=== PATIENT | female | born 1950 | race African-American/Black ===

== ENCOUNTER 2017-02-15 17:26 | Inpatient (IN) ==
[2017-02-15 19:20] LABS: Basophils % 0.4 % (0.0-0.8); Eosinophils # 0.3 10*3/uL (0.0-0.87); Eosinophils % 6.1 % (0.00-10.9); Hematocrit 37.9 VOL% (35.7-47.0); Hemoglobin 12.2 GM/DL (12.0-16.0); Immature Granulocytes % 0.2 %; Immature Granulocytes Absolute 0.01 #; Lymphocytes # 1.4 10*3/uL (1.4-4.0); Mean Corpuscular HGB Conc 32.2 GM/DL (32-36); Mean Corpuscular Hemoglobin 30 PG (27-34); Mean Corpuscular Volume 91.5 FL (87-102); Mean Platelet Volume 10.3 FL (9.6-12.0); Monocytes # 1.1 10*3/uL (0.11-0.8); Neutrophils # 2.2 10*3/uL (1.4-7.4); Neutrophils % 43.3 % (38.7-73.9); Platelet Count 163 T/CUMM (130-400); Red Blood Count 4.14 MC/CUMM (3.8-5.5); Red Cell Distribution Width 19.2 % (9.3-17.3); White Blood Count 5.1 T/CUMM (4-12)
[2017-02-15 19:27] LABS: INR 1.1; PT Patient Result 11.3 SECS; Partial Thromboplastin Time 31.9 SECS (0-40)
[2017-02-15 19:30] LABS: Albumin 3.1 G/DL (3.4-5.0); Bilirubin,Total 0.4 MG/DL (0.2-1.0); Calcium 7.7 MG/DL (8.5-10.1); Osmolality,Calculated 291.4 MOS/KG (273-304); Potassium 4.5 MMOL/L (3.5-5.1); Total Protein 6.7 G/DL (6.4-8.3)
--- NOTE | 2017-02-15 19:39 | Emergency Department Note ---
Arrival - Arrival Chief Complaint: GI Bleed/Rectal Stated Complaint: BLEEDING FROM RECTUM/FEELS SICK ED Nursing Triage Note: C/o bright red rectal bleeding-onset yesterday. Also c/ o lower back cramping. Mode of Arrival: Wheelchair Limitations: No Limitations Source: Patient Time Seen by Provider: 02/15/17 17:56 - History of Present Illness HPI Narrative: The patient complains of bright red rectal bleeding since last night. She states she has had approximately 7 episodes of bloody diarrhea. She has had some mild diffuse abdominal cramping and lower back pain. No nausea or vomiting. She denies dizziness, lightheadedness, syncope, chest pain, shortness of breath or weakness. She has a history of rectal bleeding in the past. Etiology is unclear but diverticular disease is suspected. She has had to have transfusions in the past. She is a dialysis patient and dialyzes Thursday and Fridays. Date of Last Menstrual Period: menopause Allergies/Adverse Reactions: Allergies Allergy/AdvReac Type Severity Reaction Status Date / Time peanut Allergy Severe HIVES Verified 01/30/17 13:09 PEANUT BUTTER Allergy Severe ANAPHYLAXIS Uncoded 01/28/17 19:42 Home Medications: Home Medications Medication Instructions Recorded Confirmed Type Carvedilol [Coreg] 6.25 mg PO BID 06/06/15 02/15/17 History Doxazosin [Cardura] 2 mg PO BID 06/06/15 02/15/17 History Insulin Glargine [Lantus] 10 unit SUBCUT BEDTIME 06/06/15 02/15/17 History glipiZIDE [Glucotrol] 10 mg PO BIDAC 06/06/15 02/15/17 History Losartan Potassium 100 mg PO DAILY 11/04/16 02/15/17 History cloNIDine TAB [Catapres Tab] 0.1 mg PO TID 11/04/16 02/15/17 History Metoclopramide HCl 5 mg PO QID PRN 11/30/16 02/15/17 History Pantoprazole Tab [Protonix Tab] 40 mg PO BID 12/30/16 02/15/17 History Calcium Acetate [Phoslo] 1,334 mg PO WITH SNACKS 01/28/17 02/15/17 History Calcium Acetate [Phoslo] 2,001 mg PO TID W/MEALS 01/28/17 02/15/17 History Cinacalcet HCl [Sensipar] 60 mg PO BID 01/28/17 02/15/17 History Levocetirizine Dihydrochloride 5 mg PO DAILY #20 tablet 01/28/17 02/15/17 Rx [Xyzal] Pro Renal D 1 tablet PO DAILY 01/28/17 02/15/17 History Review of System - Review of System Constitutional: Absent: diaphoresis, fever, weakness Respiratory: Absent: cough Cardiovascular: Absent: chest pain, palpitations, dyspnea on exertion Gastrointestinal: Present: abdominal pain, diarrhea, hematochezia. Absent: nausea, vomiting, melena Medical,Surgical,& Family Hx - Medical History Cardio: History of: CAD, Hypertension, [place] (2007/2008), Cardiovascular Problems Psychological: No history of: Behavior Problems Neurology: No history of: Seizures HEENT: History of: Ear Problem (GLASSES), Eye Problem, Dental Problems Endocrine: History of: Diabetes Mellitus (IDDM), Diabetes Mellitus (NIDDM) Respiratory: No history of: Respiratory Problems (FLU VAC- YES; PNEU VAC- YES.) Renal: History of: Dialysis (MWF), Renal Failure Genitourinary: History of: Kidney Stones Gastrointestinal: History of: Diverticulitis/ Diverticulosis, GERD, Gastrointestinal Bleed, Polyps, GI Problems (GI bleeding) Musculoskeletal: History of: Amputation (right BKA) Hematology: History of: Anemia Other: History of: Anesthesia Reactions (NAUSEA AND VOMITING) - Surgical History Cardiac Surgeries: Sugical HX of: Cardiac Surgery (CABG 2008) Thoracic Surgeries: Patient denies;: Organ Transplant, Lobectomy Neurologic Surgeries: Patient denies: Neurologic Surgery HEENT Surgeries: Surgical HX of: Eye Surgery (CATARACTS) Patient denies: Tonsilectomy & Adenoidectomy Abdominal Surgeries: Surgical HX of: Cholecystectomy, Colonoscopy, EGD Reproductive Surgeries: Surgical HX of;: Hysterectomy, Tubal Ligation Patient denies;: Gynecologic Surgery Orthopedic Surgeries: Surgical HX of;: Implanted Devices (fistula rt upper arm, old graft in left arm) - Family History Family History: Reports;: Family Diabetes (PARENTS), Family Heart Disease, Family Hypertension, Family Stroke (MOM) - Social History Smoking Status: Never smoker Frequency of Alcohol Use: None Type of Drug Use: None Exam Physical Examination: GENERAL: Alert. No acute distress. HEENT: Normocephalic and atraumatic. There is no nasal drainage. No pharyngeal erythema or exudate. NECK: Normal inspection. Supple. No lymphadenopathy or meningismus. LUNGS: No respiratory distress. Clear to auscultation bilaterally, no wheezes, rales or rhonchi. HEART: Regular rate and rhythm. ABDOMEN: Soft, nontender and nondistended with normoactive bowel sounds. Rectal: Nontender. Few nonthrombosed, nontender external hemorrhoids with no active bleeding. Stool is dark red and heme positive. BACK: Normal inspection. SKIN: Color normal. Warm and dry. EXTREMITIES: Nontender. Right AKA. NEUROLOGICAL/PSYCHIATRIC: Alert and oriented -3 with normal mood and affect. Cranial nerves normal. No motor or sensory deficit. Vital Signs: Vital Signs Temperature 97.9 F 02/15/17 17:56 Pulse Rate 72 02/15/17 18:30 Respiratory Rate 18 02/15/17 18:30 Blood Pressure 215/72 02/15/17 18:30 O2 Sat by Pulse Oximetry 100 02/15/17 18:30 Course - Reevaluation(s) Reevaluation #1: Patient has remained stable in the ER. She really looks pretty good and her H& H are normal, however, she is grossly positive on exam and will need admission for monitoring of her H&H and probably GI consultation. I have discussed the patient with the hospitalist service who will see her in the ER and admit. Time: 19:48 Results - Labs CBC & BMP: 02/15/17 18:32 02/15/17 18:32 Lab Results: I have reviewed the patients labs Labs: Laboratory Tests 02/15/17 02/15/17 18:32 18:32 INR 1.1 PT Patient/Control Mix 11.3 Circ Anticoag PTT 31.9 Calcium 7.7 L Total Bilirubin 0.40 AST 20 ALT 12 L Alkaline Phosphatase 161 H Albumin 3.1 L Disposition Clinical Impression: Hematochezia, Hypertension, Chronic renal failure Case discussed with: patient Disposition: Still a Patient Time of Disposition: 19:50
--- NOTE | 2017-02-15 20:11 | Hospitalist History & Physical ---
Assessment and Plan - Time spent with patient Time spent with patient: Greater than 30 minutes (1) GI bleeding Status: Acute Assessment and plan: Patient has a history of recurrent GI bleeding with multiple negative endoscopies in the past except for diverticulosis which is the suspected source. She is currently hemodynamically stable and otherwise asymptomatic. Have ordered stat bleeding scan this evening we will continue her routine medications, obtain serial hematocrits, begin IV proton pump inhibitor. Will consult GI for further recommendations. Current Visit: Yes (2) Diabetes mellitus Status: Chronic Assessment and plan: Patient has diabetes mellitus. Will continue her home medications as well as Accu-Cheks and sliding scale insulin. Current Visit: Yes Qualifiers: Diabetes mellitus type: type 2 Chronic kidney disease stage: on chronic dialysis (3) ESRD on dialysis Status: Chronic Assessment and plan: I have consulted nephrology to assist with dialysis while here. Current Visit: No (4) Hypertension Status: Chronic Assessment and plan: Patient has chronic essential hypertension. She is mildly hypertensive this evening. We will continue her routine home medications with as needed hydralazine. Current Visit: No Qualifiers: Hypertension type: essential hypertension Qualified Code(s): I10 - Essential (primary) hypertension (5) Coronary artery disease Status: Chronic Assessment and plan: Patient has history of coronary artery disease but has no signs or symptoms of ACS at this time. Will continue current medical regimen and follow. Current Visit: No History of Present Illness Chief complaint: Rectal bleeding History of present illness: Ms. Carrillo is a 66 year old female with a history of end-stage renal disease on hemodialysis, hypertension, diabetes mellitus, coronary artery disease status post aortocoronary bypass grafting who has had recurrent GI bleeding in the past with multiple endoscopic evaluations with no definitive source except for diverticulosis. She was treated conservatively on her previous admission and it was recommended that she have a bleeding scan upon recurrence. She states that she began having some bright red rectal bleeding last evening and has had 3-4 episodes of bloody stool today the last being approximately 1 hour prior to admission. She says some diffuse abdominal cramping but no nausea or vomiting. She denies any chest pain, shortness of breath, dizziness, syncope, focal motor weakness or paresthesias, fever, chills. She states that she sees Dr. Austin García for her Thursday hemodialysis. Home Medications Medication Instructions Recorded Confirmed Type Carvedilol [Coreg] 6.25 mg PO BID 06/06/15 02/15/17 History Doxazosin [Cardura] 2 mg PO BID 06/06/15 02/15/17 History Insulin Glargine [Lantus] 10 unit SUBCUT BEDTIME 06/06/15 02/15/17 History glipiZIDE [Glucotrol] 10 mg PO BIDAC 06/06/15 02/15/17 History Losartan Potassium 100 mg PO DAILY 11/04/16 02/15/17 History cloNIDine TAB [Catapres Tab] 0.1 mg PO TID 11/04/16 02/15/17 History Metoclopramide HCl 5 mg PO QID PRN 11/30/16 02/15/17 History Pantoprazole Tab [Protonix Tab] 40 mg PO BID 12/30/16 02/15/17 History Calcium Acetate [Phoslo] 1,334 mg PO WITH SNACKS 01/28/17 02/15/17 History Calcium Acetate [Phoslo] 2,001 mg PO TID W/MEALS 01/28/17 02/15/17 History Cinacalcet HCl [Sensipar] 60 mg PO BID 01/28/17 02/15/17 History Levocetirizine Dihydrochloride 5 mg PO DAILY #20 tablet 01/28/17 02/15/17 Rx [Xyzal] Pro Renal D 1 tablet PO DAILY 01/28/17 02/15/17 History Allergies Allergy/AdvReac Type Severity Reaction Status Date / Time peanut Allergy Severe HIVES Verified 01/30/17 13:09 PEANUT BUTTER Allergy Severe ANAPHYLAXIS Uncoded 01/28/17 19:42 Medical,Surgical,& Family Hx - Medical History Cardio: History of: CAD, Hypertension, [place] (2007/2008), Cardiovascular Problems Psychological: No history of: Behavior Problems Neurology: No history of: Seizures HEENT: History of: Ear Problem (GLASSES), Eye Problem, Dental Problems Endocrine: History of: Diabetes Mellitus (IDDM), Diabetes Mellitus (NIDDM) Respiratory: No history of: Respiratory Problems (FLU VAC- YES; PNEU VAC- YES.) Renal: History of: Dialysis (MWF), Renal Failure Genitourinary: History of: Kidney Stones Gastrointestinal: History of: Diverticulitis/ Diverticulosis, GERD, Gastrointestinal Bleed, Polyps, GI Problems (GI bleeding) Musculoskeletal: History of: Amputation (right BKA) Hematology: History of: Anemia Other: History of: Anesthesia Reactions (NAUSEA AND VOMITING) - Surgical History Cardiac Surgeries: Sugical HX of: Cardiac Surgery (CABG 2008) Thoracic Surgeries: Patient denies;: Organ Transplant, Lobectomy Neurologic Surgeries: Patient denies: Neurologic Surgery HEENT Surgeries: Surgical HX of: Eye Surgery (CATARACTS) Patient denies: Tonsilectomy & Adenoidectomy Abdominal Surgeries: Surgical HX of: Cholecystectomy, Colonoscopy, EGD Reproductive Surgeries: Surgical HX of;: Hysterectomy, Tubal Ligation Patient denies;: Gynecologic Surgery Orthopedic Surgeries: Surgical HX of;: Implanted Devices (fistula rt upper arm, old graft in left arm) - Family History Family History: Reports;: Family Diabetes (PARENTS), Family Heart Disease, Family Hypertension, Family Stroke (MOM) - Social History Smoking Status: Never smoker Frequency of Alcohol Use: None Type of Drug Use: None 12 point system: reviewed and no additional remarkable complaints except as stated Exam - Constitutional Vitals: Period Temp Pulse Resp BP Sys/Durant Pulse Ox Last 24 Hr 97.9 F-97.9 F 72-78 18-18 205-215/62-72 99-100 General appearance: no acute distress - Head Head exam: Present: normocephalic, atraumatic - Eye Eye exam: Present: EOMI. Absent: scleral icterus Pupils: Present: LOUIS - ENT ENT exam: Present: normal oropharynx - Neck Neck exam: Present: normal inspection. Absent: lymphadenopathy, meningismus, tenderness, thyromegaly - Respiratory Respiratory exam: Present: clear to auscultation bilaterally. Absent: rales, rhonchi, wheezes - Cardiovascular Cardiovascular exam: Present: regular rate and rhythm. Absent: systolic murmur , tachycardia - GI/Abdominal GI/Abdominal exam: Present: normal bowel sounds, soft. Absent: distended, mass , tenderness, rebound - Extremities Exam Extremities exam: Present: other (Right below the knee amputation). Absent: calf tenderness, edema - Back Exam Back exam: Present: normal inspection. Absent: CVA tenderness (L), CVA tenderness (R) - Neurological Exam Neurological exam: Present: alert, oriented X3, CN II-XII intact. Absent: motor sensory deficit - Psychiatric Psychiatric exam: Present: normal affect, normal mood. Absent: agitated, anxious - Skin Skin exam: Present: warm, dry. Absent: erythema, rash Results - Labs CBC & BMP: 02/15/17 18:32 02/15/17 18:32 Lab Results: I have reviewed the past 24 hour labs
[2017-02-15 20:43] LABS: Eosinophils 3 % (0-10); Hypochromasia Slight; Lymphocytes 25 % (20-55); Platelet Estimate Normal; Segmented Neutrophils 58 % (50-85); Total Cells Counted 100
[2017-02-15] MEDS ORDERED: METOCLOPRAMIDE 5 MG TABLET PO PRN (22:41)
[2017-02-15] MEDS ORDERED: CALCIUM ACETATE 667 MG CAPSULE PO SCH (22:41)
[2017-02-15] MEDS ORDERED: DEXTROSE 50% 25 GM/50 ML VIAL IV PRN (22:41)
[2017-02-15] MEDS ORDERED: hydrALAZINE 20 MG/1 ML VIAL IV PRN (22:41)
[2017-02-15] MEDS ORDERED: SODIUM CHLORIDE 0.9% 1,000 ML IV SCH (22:41)
[2017-02-15] MEDS ORDERED: ONDANSETRON 4 MG/2 ML VIAL IV PRN (22:41)
[2017-02-15] MEDS ORDERED: GLUCAGON 1 MG VIAL IM PRN (22:41)
[2017-02-15 22:57] LABS: Hematocrit 37.8 VOL% (35.7-47.0); Hemoglobin 12.1 GM/DL (12.0-16.0)
[2017-02-16] MEDS: PANTOPRAZOLE 40 MG VIAL IV SCH ×3 (00:52→21:26)
[2017-02-16] MEDS: CINACALCET 30 MG TABLET PO SCH ×3 (00:52→21:25)
[2017-02-16] MEDS: CARVEDILOL 6.25 MG TABLET PO SCH ×3 (00:53→21:24)
[2017-02-16] MEDS: cloNIDine 0.1 MG TABLET PO SCH ×4 (00:53→21:24)
[2017-02-16] MEDS: DOXAZOSIN 4 MG TABLET PO SCH ×3 (00:53→21:23)
[2017-02-16] MEDS: INSULIN GLARGINE 100 UNIT/ML SUBCUT SCH ×2 (00:53→21:26)
[2017-02-16] MEDS: INSULIN LISPRO 100 UNIT/ML SUBCUT SCH ×5 (00:53→21:39)
[2017-02-16 06:32] LABS: Hematocrit 36.3 VOL% (35.7-47.0); Hemoglobin 11.3 GM/DL (12.0-16.0)
--- NOTE | 2017-02-16 09:44 | Gastrointestinal Consult Note ---
Assessment and Plan (1) Lower gastrointestinal hemorrhage Status: Acute Assessment and plan: This patient has had extensive multiple GI workups trying to find a source for this bleeding. She has left-sided diverticulosis and this is thought to be a diverticular bleed at this time but we have never clotted bleeding or been able to document the exact source. If she returns again to the ER it is advisable to obtain a tagged red blood cell scan immediately in order to assess the bleeding source most likely for lower GI hemorrhage. Given prior colonoscopies I suspect this is probably the left colon. She wishes to avoid hemicolectomy if possible but this represents a potential cure for this recurrent problem down the road. We will leave this to Dr. Hough. The first order of business is to document that this is indeed coming from the colon. I have ordered a repeat tagged red blood cell scan and delayed images. Current Visit: No (2) Anemia Problem details: Extensive negative workup. Hgb now stable. Bleeding scan and upper and lower endoscopy negative for source but confirming blood in entire colon. Not sure if bleeding brisk enough for arteriogram to detect. Status: Chronic Assessment and plan: Continue to observe and decide whether or not transfusions required later based on drop over time. I do not suspect further colonoscopy will be of much help if the tagged red blood cell scan is negative. Current Visit: No (3) GERD (gastroesophageal reflux disease) Status: Acute Assessment and plan: We can certainly suppress this patient's symptoms with Protonix on a daily basis. She does have a previous upper endoscopy by Dr. Carlin demonstrating some mild esophagitis, gastritis, and duodenitis. Capsule endoscopy however showed nothing done more recently in December 2016. Current Visit: Yes (4) Lower GI hemorrhage Status: Acute Current Visit: No (5) History of diverticulosis Status: Acute Assessment and plan: As mentioned above. Current Visit: Yes History of Present Illness Chief complaint: Bright red blood per rectum 7 episodes with decreased hematocrit History of present illness: Ms. Carrillo is a 66 year old female who is a patient of Dr. Hough' having bleeding since late in the afternoon 2 days ago when this started with multiple episodes of bright red blood per rectum, she states that there were at least 7 of these episodes yesterday. The patient was admitted to the hospital yesterday but has been admitted for this on numerous occasions in the past. She did not feel dizzy but she did feel weak. She is nauseous and does have reflux symptoms but did not have any vomiting of coffee grounds nor any melena. Her hematocrit is dropped from 37.9 down to 36.3. This is a patient of Dr. Hough's who is been worked up for this as mentioned with at least 2 upper endoscopies and 2 colonoscopies as well as capsule endoscopy. Capsule endoscopy was completed as recently as 12/25/16 and demonstrated rapid gastric emptying but a normal small bowel transit time and no clear evidence of AVM or other bleeding source in the small bowel. Looking through the old records the patient's last colonoscopy was done by Dr. Carlin on 10/10/14 and was significant for hemorrhoids as well as diverticulosis in the left colon. There was 80% visualization of the colon at that time. Upper endoscopy had previously been done by Dr. Carlin on 05/17/14 at that time she had some focal hemorrhagic duodenitis as well as esophagogastritis and a negative duodenum by report. Biopsies did not show any evidence of sprue just chronic duodenitis at that time. There may be a set of repeat upper and lower endoscopies done by Dr. Hough since the above tests, but they do not appear to be in [facility] [place]--Dr. Hough his last consultation makes reference that upper and lower endoscopy may have been done around January of 2016. The patient has had a tagged red blood cell scan back on 04/26/15 as well as a abdominal pelvic CTA on 05/28/15 in an effort to work this up as well. Both of these were negative for bleeding sources although the CTA did indicate a mucosal thickening within the ileum and mild fluid-filled loops of terminal ileum which were nonspecific. A small bowel follow-through was also ordered as recently as 02/01/16-this also did not show source for the patient's bleeding. She is due to get a tagged red blood cell scan today and will make sure that gets repeated. If recurrent GI bleeding is noted we might consider having the patient undergo left hemicolectomy given that this is the most likely source of potential bleeding. Home Medications Medication Instructions Recorded Confirmed Type Carvedilol [Coreg] 6.25 mg PO BID 06/06/15 02/15/17 History Doxazosin [Cardura] 2 mg PO BID 06/06/15 02/15/17 History Insulin Glargine [Lantus] 10 unit SUBCUT BEDTIME 06/06/15 02/15/17 History glipiZIDE [Glucotrol] 10 mg PO BIDAC 06/06/15 02/15/17 History Losartan Potassium 100 mg PO DAILY 11/04/16 02/15/17 History cloNIDine TAB [Catapres Tab] 0.1 mg PO TID 11/04/16 02/15/17 History Metoclopramide HCl 5 mg PO QID PRN 11/30/16 02/15/17 History Pantoprazole Tab [Protonix Tab] 40 mg PO BID 12/30/16 02/15/17 History Calcium Acetate [Phoslo] 1,334 mg PO WITH SNACKS 01/28/17 02/15/17 History Calcium Acetate [Phoslo] 2,001 mg PO TID W/MEALS 01/28/17 02/15/17 History Cinacalcet HCl [Sensipar] 60 mg PO BID 01/28/17 02/15/17 History Pro Renal D 1 tablet PO DAILY 01/28/17 02/15/17 History Allergies Allergy/AdvReac Type Severity Reaction Status Date / Time peanut Allergy Severe HIVES Verified 01/30/17 13:09 PEANUT BUTTER Allergy Severe ANAPHYLAXIS Uncoded 01/28/17 19:42 Medical,Surgical,& Family Hx - Medical History Cardio: History of: CAD, Hypertension, [place] (2007/2008), Cardiovascular Problems Psychological: No history of: Behavior Problems Neurology: No history of: Seizures HEENT: History of: Ear Problem (GLASSES), Eye Problem, Dental Problems Endocrine: History of: Diabetes Mellitus (IDDM), Diabetes Mellitus (NIDDM) Respiratory: No history of: Respiratory Problems (FLU VAC- YES; PNEU VAC- YES.) Renal: History of: Dialysis (MWF), Renal Failure Genitourinary: History of: Kidney Stones Gastrointestinal: History of: Diverticulitis/ Diverticulosis, GERD, Gastrointestinal Bleed, Polyps, GI Problems (GI bleeding) Musculoskeletal: History of: Amputation (right BKA) Hematology: History of: Anemia Other: History of: Anesthesia Reactions (NAUSEA AND VOMITING) - Surgical History Cardiac Surgeries: Sugical HX of: Cardiac Surgery (CABG 2008) Thoracic Surgeries: Patient denies;: Organ Transplant, Lobectomy Neurologic Surgeries: Patient denies: Neurologic Surgery HEENT Surgeries: Surgical HX of: Eye Surgery (CATARACTS) Patient denies: Tonsilectomy & Adenoidectomy Abdominal Surgeries: Surgical HX of: Cholecystectomy, Colonoscopy, EGD Reproductive Surgeries: Surgical HX of;: Hysterectomy, Tubal Ligation Patient denies;: Gynecologic Surgery Orthopedic Surgeries: Surgical HX of;: Implanted Devices (fistula rt upper arm, old graft in left arm) - Family History Family History: Reports;: Family Diabetes (PARENTS), Family Heart Disease, Family Hypertension, Family Stroke (MOM) - Social History Smoking Status: Never smoker Frequency of Alcohol Use: None Type of Drug Use: None Review of systems: Constitutional: Denies fever, chills, positive for nausea, without vomiting Eyes: Denies dry eyes, and scleral icterus HENT: Occasional headaches Cardiovascular: Denies acute chest pain and claudication Respiratory: Denies shortness of breath, wheezing, and difficulty breathing, denies cough Gastrointestinal: As noted in the HPI Genitourinary: Denies dysuria and hematuria Neurologic: Denies vision loss, and loss of sensation--she does have some distal paresthesias but denies phantom limb pain on the right Musculoskeletal: Admits to joint swelling, joint stiffness, and muscular weakness--the patient has had an right-sided AKA in the past Psychiatric: Denies depression and adam symptoms Heme-Lymph: Denies easy bruising, lymph node enlargement or tenderness, night sweats, but admits to excessive bleeding from the rectum Allergies-immunologic: Denies pruritus and rhinorrhea Exam - Constitutional Vitals: Period Temp Pulse Resp BP Sys/Durant Pulse Ox Last 24 Hr 97.3 F-98.2 F 63-78 18-20 138-215/52-73 95-100 Exam: Constitutional: Well-developed, well-nourished, alert, and in no acute distress Head and face: Head: Normocephalic atraumatic Eyes: Conjunctiva without injection, no gross scleral icterus, pupils equal and round bilaterally Ears: Intact to conversation in both ears Nose: External appearance is normal, nares patent Mouth: Oral mucous membranes moist without erythema Neck: Normal appearance, no masses or tenderness, trachea midline Thyroid: Gland midline and appropriate size for age Respiratory: Normal respiratory effort, clear to auscultation without wheezes, rhonchi or rales Cardiovascular: Regular rate and rhythm, normal S1, S2, the exam is without rubs, murmurs or gallops. Gastrointestinal: Mild periumbilical to palpation, normal active bowel sounds, tone normal without rigidity or guarding, no masses present, no hepatomegaly, no spleen tip felt. No rectal exam obtained--guaiac positive in the ER by report. Lymphatic: Neck without adenopathy, axilla without lymphadenopathy present Musculoskeletal: Right-sided AKA with well-healed stump but left lower extremities without evidence of edema, though the tissue here in the ankle and foot seems somewhat woody. Skin and subcutaneous tissue: No rashes or ulcerations noted, normal skin turgor, digits and nails without clubbing/cyanosis/deformities. Neurologic: The patient is grossly oriented to person place and time, cranial nerves show tongue movements are normal with normal tongue extrusion midline, light touch sensation is intact. Psychiatric: No hallucinations or delusions are present, does not appear depressed Results - Labs CBC & BMP: 02/16/17 06:20 02/15/17 18:32 Quality Measures - VTE Contraindication to Pharmacological VTE Prophylaxis: Active Bleeding
--- NOTE | 2017-02-16 10:11 | Nephrology Consult Note ---
History of Present Illness Chief complaint: esrd History of present illness: Ms. Carrillo is a 66 year old female with end-stage renal disease who dialyzes Thursday and. She presents with recurrent GI bleeding having had 7 bloody bowel movements yesterday. She has had multiple extensive workups for this problem with no solitary lesion being found. She has been hemodynamically stable and on admission had a hematocrit of 37%. On physical exam she is in no distress and neck without jugular venous distention heart without rub or gallop the abdomen is soft. Extremities she has had a right below-knee amputation and her left leg is without edema. Impression end-stage renal disease with presentation with recurrent GI bleeding. Plan is hemodynamic support and continued hemodialysis per Home Medications Medication Instructions Recorded Confirmed Type Carvedilol [Coreg] 6.25 mg PO BID 06/06/15 02/15/17 History Doxazosin [Cardura] 2 mg PO BID 06/06/15 02/15/17 History Insulin Glargine [Lantus] 10 unit SUBCUT BEDTIME 06/06/15 02/15/17 History glipiZIDE [Glucotrol] 10 mg PO BIDAC 06/06/15 02/15/17 History Losartan Potassium 100 mg PO DAILY 11/04/16 02/15/17 History cloNIDine TAB [Catapres Tab] 0.1 mg PO TID 11/04/16 02/15/17 History Metoclopramide HCl 5 mg PO QID PRN 11/30/16 02/15/17 History Pantoprazole Tab [Protonix Tab] 40 mg PO BID 12/30/16 02/15/17 History Calcium Acetate [Phoslo] 1,334 mg PO WITH SNACKS 01/28/17 02/15/17 History Calcium Acetate [Phoslo] 2,001 mg PO TID W/MEALS 01/28/17 02/15/17 History Cinacalcet HCl [Sensipar] 60 mg PO BID 01/28/17 02/15/17 History Pro Renal D 1 tablet PO DAILY 01/28/17 02/15/17 History Allergies Allergy/AdvReac Type Severity Reaction Status Date / Time peanut Allergy Severe HIVES Verified 01/30/17 13:09 PEANUT BUTTER Allergy Severe ANAPHYLAXIS Uncoded 01/28/17 19:42 Medical,Surgical,& Family Hx - Medical History Cardio: History of: CAD, Hypertension, OR (2007/2008), Cardiovascular Problems Psychological: No history of: Behavior Problems Neurology: No history of: Seizures HEENT: History of: Ear Problem (GLASSES), Eye Problem, Dental Problems Endocrine: History of: Diabetes Mellitus (IDDM), Diabetes Mellitus (NIDDM) Respiratory: No history of: Respiratory Problems (FLU VAC- YES; PNEU VAC- YES.) Renal: History of: Dialysis (MWF), Renal Failure Genitourinary: History of: Kidney Stones Gastrointestinal: History of: Diverticulitis/ Diverticulosis, GERD, Gastrointestinal Bleed, Polyps, GI Problems (GI bleeding) Musculoskeletal: History of: Amputation (right BKA) Hematology: History of: Anemia Other: History of: Anesthesia Reactions (NAUSEA AND VOMITING) - Surgical History Cardiac Surgeries: Sugical HX of: Cardiac Surgery (CABG 2008) Thoracic Surgeries: Patient denies;: Organ Transplant, Lobectomy Neurologic Surgeries: Patient denies: Neurologic Surgery HEENT Surgeries: Surgical HX of: Eye Surgery (CATARACTS) Patient denies: Tonsilectomy & Adenoidectomy Abdominal Surgeries: Surgical HX of: Cholecystectomy, Colonoscopy, EGD Reproductive Surgeries: Surgical HX of;: Hysterectomy, Tubal Ligation Patient denies;: Gynecologic Surgery Orthopedic Surgeries: Surgical HX of;: Implanted Devices (fistula rt upper arm, old graft in left arm) - Family History Family History: Reports;: Family Diabetes (PARENTS), Family Heart Disease, Family Hypertension, Family Stroke (MOM) - Social History Smoking Status: Never smoker Frequency of Alcohol Use: None Type of Drug Use: None Review of Systems 12 point system: reviewed and no additional remarkable complaints except as stated Exam - Vital Signs Vital signs: Period Temp Pulse Resp BP Sys/Durant Pulse Ox Last 24 Hr 97.3 F-98.2 F 63-78 18-20 138-215/52-73 95-100 - General Appearance General appearance: well-developed, well-nourished, appears started age EENT: ATNC Neck: no JVD, no thyromegaly, no carotid bruit, supple Respiratory: no kyphosis, no scoliosis Cardiology: no murmurs, no rub, no gallops, no edema, regular rate, regular rhythm, normal S1, normal S2 Gastrointestinal: normoactive bowel sounds Integumentary: no rash, warm and dry Neurologic: no focal deficit, no asterixis, alert and oriented x3, reflexes 2+ and symmetric, gait normal, strength 5/5 Musculoskeletal: no deformities, no erythema, no cyanosis, no clubbing Psychiatric: mood/affect appropriate, cooperative Results - Labs CBC & BMP: 02/16/17 06:20 02/15/17 18:32 Assessment and Plan (1) End stage renal disease Problem details: HD tomorrow. Status: Chronic Current Visit: No (2) GI bleeding Status: Acute Current Visit: Yes Specialty Discharge - Follow Up or Referrals - Speciality Discharge Instructions Nephrology Instructions: Hemodialysis Thursday.
--- NOTE | 2017-02-16 10:12 | Dialysis Note ---
Dialysis Note - Dialysis Note Ms. Carrillo is seen during her hemodialysis. Blood pressure stable. She is alert and in no distress. Plan is to continue Thursday dialysis
[2017-02-16] MEDS: glipiZIDE 10 MG TABLET PO SCH ×2 (10:25→16:30)
[2017-02-16] MEDS: CALCIUM ACETATE 667 MG CAPSULE PO SCH ×3 (10:26→16:30)
[2017-02-16] MEDS: MULTIVITAMIN (BEROCCA) TABLET PO SCH (10:28)
[2017-02-16] MEDS ORDERED: HEPARIN 10,000 UNIT/10 ML VIAL IV SCH (10:30)
[2017-02-16 11:11] LABS: Hemoglobin 12.2 GM/DL (12.0-16.0)
[2017-02-16] MEDS: LOSARTAN 50 MG TABLET PO SCH (12:28)
[2017-02-16] MEDS: CETIRIZINE 10 MG TABLET PO SCH (12:30)
--- NOTE | 2017-02-16 13:12 | Hospitalist Progress Note ---
Assessment and Plan (1) Diabetes mellitus Status: Chronic Assessment and plan: Home medications SSI Current Visit: No Qualifiers: Diabetes mellitus type: type 2 Diabetes mellitus complication detail: with chronic kidney disease Chronic kidney disease stage: on chronic dialysis (2) Hypertension Status: Chronic Assessment and plan: Home medications Current Visit: No Qualifiers: Hypertension type: essential hypertension Qualified Code(s): I10 - Essential (primary) hypertension (3) GI bleeding Status: Acute Assessment and plan: History of GI bleeds, diverticulosis H/H stable GI consulted Tagged red blood cell scan ordered Current Visit: Yes (4) Anemia Problem details: Extensive negative workup. Hgb now stable. Bleeding scan and upper and lower endoscopy negative for source but confirming blood in entire colon. Not sure if bleeding brisk enough for arteriogram to detect. Status: Chronic Assessment and plan: Monitor closely Current Visit: No (5) End stage renal disease Problem details: HD tomorrow. Status: Chronic Assessment and plan: Nephrology managing Current Visit: No Hospitalist: Subjective Interval history: No acute events overnight. Seen today in HD. Complaining of some nausea and mild cramping. Exam - Constitutional Vitals: Period Temp Pulse Resp BP Sys/Durant Pulse Ox Last 24 Hr 97.0 F-98.2 F 59-78 16-20 91-215/41-73 93-100 General appearance: over weight - Head Head exam: Present: normocephalic, atraumatic - Eye Eye exam: Present: EOMI Pupils: Present: LOUIS - ENT ENT exam: Present: normal exam - Neck Neck exam: Present: normal inspection - Respiratory Respiratory exam: Present: clear to auscultation bilaterally. Absent: rhonchi, wheezes - Cardiovascular Cardiovascular exam: Present: regular rate and rhythm - GI/Abdominal GI/Abdominal exam: Present: normal bowel sounds, soft. Absent: tenderness, rebound - Extremities Exam Extremities exam: Present: normal inspection - Back Exam Back exam: Present: normal inspection - Neurological Exam Neurological exam: Present: alert, oriented X3 - Psychiatric Psychiatric exam: Present: normal affect, normal mood - Skin Skin exam: Present: warm, intact Results - Labs CBC & BMP: 02/16/17 10:40 02/15/17 18:32 Quality Measures - VTE Contraindication to Pharmacological VTE Prophylaxis: Active Bleeding
--- NOTE | 2017-02-16 14:59 | Nuclear Medicine Report ---
Exam: NM GI bleeding Date: 02/16/2017 7:55 PM Comparison: 04/26/2015 Indication: Rectal bleeding Technique:[Patient injected with 25 mCi technetium 99m labeled T1 LP RBC tag.] GI bleeding scans obtained. Findings: Scans were obtained until 2 hours post injection of isotope. Finding consistent with apparent AV graft in the right femoral location. It is difficult to exclude minimal isotopic activity in the level of the rectum. However somewhat similar findings were noted on the earlier exam. Impression: Equivocal minimal GI bleeding at the level of the rectum. Delayed scans will be obtained as requested. PROCEDURE INTERPRETED AT [facility] DEPARTMENT OF RADIOLOGY Final Report Signed by: Dr. Lizette Man
[2017-02-16 16:40] LABS: Hematocrit 35.9 VOL% (35.7-47.0); Hemoglobin 11.6 GM/DL (12.0-16.0)
[2017-02-17 05:09] LABS: Basophils % 0.3 % (0.0-0.8); Eosinophils # 0.2 10*3/uL (0.0-0.87); Eosinophils % 5.9 % (0.00-10.9); Hematocrit 37.2 VOL% (35.7-47.0); Hemoglobin 11.7 GM/DL (12.0-16.0); Immature Granulocytes % 0.3 %; Immature Granulocytes Absolute 0.01 #; Lymphocytes # 1.1 10*3/uL (1.4-4.0); Mean Corpuscular HGB Conc 31.5 GM/DL (32-36); Mean Corpuscular Hemoglobin 29 PG (27-34); Mean Corpuscular Volume 92.5 FL (87-102); Monocytes # 0.5 10*3/uL (0.11-0.8); Monocytes % 14.2 % (1.7-12.7); Neutrophils # 1.6 10*3/uL (1.4-7.4); Neutrophils % 47.3 % (38.7-73.9); Platelet Count 133 T/CUMM (130-400); Red Blood Count 4.02 MC/CUMM (3.8-5.5); Red Cell Distribution Width 18.6 % (9.3-17.3); White Blood Count 3.4 T/CUMM (4-12)
[2017-02-17 05:29] LABS: Calcium 7.6 MG/DL (8.5-10.1); Magnesium 2.1 MG/DL (1.8-2.4); Osmolality,Calculated 274.2 MOS/KG (273-304); Potassium 4.5 MMOL/L (3.5-5.1)
[2017-02-17 06:47] LABS: Eosinophils 2 % (0-10); Hypochromasia 1+; Lymphocytes 21 % (20-55); Nucleated Red Blood Cells 1 (0-5); Platelet Estimate Decreased; Segmented Neutrophils 60 % (50-85); Total Cells Counted 100
--- NOTE | 2017-02-17 06:52 | Nuclear Medicine Report ---
NM GI bleeding delayed Indication: Recurrent GI bleeding of uncertain etiology. Comparison: Nuclear medicine bleeding study performed 02/16/2017 1208 hours. Technique: A delayed 18 hour planar image was obtained in the anterior projection. Findings: There appears to be increased activity within the right abdomen and mid abdomen underlying residual activity within the liver that could reflect evidence of intraluminal hemorrhage involving cecum and right colon extending into the transverse large bowel. Impression: 1. Increased scintigraphic activity within the right abdomen could reflect evidence of hemorrhage within large bowel. CT of the abdomen and pelvis without oral contrast, utilizing GI bleed protocol may be useful for further evaluation. 02/17/2017 6:45 AM PROCEDURE INTERPRETED AT [facility] DEPARTMENT OF RADIOLOGY Final Report Signed by: Dr. Jaswant Aguayo
[2017-02-17] MEDS: PANTOPRAZOLE 40 MG VIAL IV SCH ×2 (08:46→21:19)
--- NOTE | 2017-02-17 09:13 | Gastrointestinal Progress Note ---
<Jacy Palumbo - Last Filed: 02/17/17 09:04> Assessment and Plan (1) GI bleeding Status: Acute Assessment and plan: 02/17-No overt bleeding today. Positive bleeding scan this morning. Hgb 11.7. For stat CT of abdomen/pelvis with GI bleed protocol. Plan and addendum to follow by DR Hough Current Visit: Yes Gastroenterology - PN: Subj Interval history: CC: GI bleed Patient is seen awake and alert lying in bed. She was admitted over the weekend for a sudden onset of bright red rectal bleeding mixed with stool on Thursday. States she had upwards of 7 bloody bowel movements prior to admission. Patient states that she had a couple of episodes yesterday with her last one being last night. She denies any abdominal pain, nausea or vomiting. Hemoglobin is stable at this time at 11.7. She is required no blood transfusion since admission. Abdomen soft, nontender. She did have a nuclear med GI bleeding scan done this morning which showed hemorrhaging in the right abdomen/large bowel. I have ordered a stat CT bleeding scan this morning. Last endoscopy noted in January 2016 with findings of polyps (sessile serrated adeonoma) and diverticulosis as well as EGD with findings of duodentits negative for H. pylori with hyperplastic polyp. ROS: Denies SOB or chest pain Exam (Progress Note) - Constitutional Vitals: Period Temp Pulse Resp BP Sys/Durant Pulse Ox Last 24 Hr 97.0 F-97.9 F 55-63 16-20 91-150/41-63 93-100 General appearance: normal weight, no acute distress - Head Head exam: Present: normal inspection, normocephalic - Eye Eye exam: Present: other (lids and conjunctiva unremarkable). Absent: scleral icterus - ENT ENT exam: Present: normal exam, normal oropharynx - Neck Neck exam: Present: normal inspection - Respiratory Respiratory exam: Present: clear to auscultation bilaterally. Absent: rales, rhonchi, wheezes - Cardiovascular Cardiovascular exam: Present: regular rate and rhythm. Absent: diastolic murmur , JVD, systolic murmur - GI/Abdominal GI/Abdominal exam: Present: normal bowel sounds, soft. Absent: ascites, distended, mass, organomegaly, tenderness - Extremities Exam Extremities exam: Present: normal inspection, full ROM - Back Exam Back exam: Present: normal inspection - Neurological Exam Neurological exam: Present: alert, oriented X3 - Psychiatric Psychiatric exam: Present: normal affect, normal mood - Skin Skin exam: Present: normal color, warm, dry Results - Labs CBC & BMP: 02/17/17 04:46 02/17/17 04:46 Lab Results: I have reviewed the past 24 hour labs <Anish Hough - Last Filed: 02/17/17 13:00> Exam (Progress Note) - Constitutional Vitals: Period Temp Pulse Resp BP Sys/Durant Pulse Ox Last 24 Hr 96.6 F-97.9 F 55-63 19-20 114-177/53-77 95-100 Results - Labs CBC & BMP: 02/17/17 04:46 02/17/17 04:46
[2017-02-17] MEDS: INSULIN LISPRO 100 UNIT/ML SUBCUT SCH ×4 (09:53→21:19)
[2017-02-17] MEDS: glipiZIDE 10 MG TABLET PO SCH ×2 (09:53→16:18)
[2017-02-17] MEDS: CETIRIZINE 10 MG TABLET PO SCH (09:54)
[2017-02-17] MEDS: MULTIVITAMIN (BEROCCA) TABLET PO SCH ×2 (09:54→10:12)
[2017-02-17] MEDS: CALCIUM ACETATE 667 MG CAPSULE PO SCH ×3 (09:54→16:18)
[2017-02-17] MEDS: DOXAZOSIN 4 MG TABLET PO SCH ×2 (10:08→21:18)
[2017-02-17] MEDS: CINACALCET 30 MG TABLET PO SCH ×2 (10:08→21:18)
[2017-02-17] MEDS: LOSARTAN 50 MG TABLET PO SCH (10:10)
[2017-02-17] MEDS: cloNIDine 0.1 MG TABLET PO SCH ×3 (10:11→21:18)
[2017-02-17] MEDS: CARVEDILOL 6.25 MG TABLET PO SCH ×2 (10:11→21:18)
--- NOTE | 2017-02-17 10:21 | CT Report ---
CT angio abd/pel GI Bleed Indication: GI bleed. Comparison: No cross-sectional imaging is available for comparison. Comparison is made to nuclear medicine tagged red blood cell study performed February 17, 2017. Technique: CT of the abdomen and pelvis was performed prior to and following administration of intravenous contrast. No oral contrast was administered. Contrast enhanced series were acquired in the portal venous and delayed phase. Coronal and sagittal MPR's as well as 3-D volumetric reconstructions of the vasculature were performed. Findings: In the delayed phase, within the cecum, there is a small focus of intraluminal blush, image #[id number] of the axial delayed series. While this focus does appear somewhat curvilinear, this does extend into the lumen of the cecum. This focus is supplied by right ileocolic branch of the SMA. This is not present in the portal venous phase and this finding is worrisome for intraluminal source of hemorrhage. No further delayed imaging was performed to confirm dissolution. Lower chest: Nonspecific thickening of interlobular septal lines is present which may in part be chronic. Heart size appears minimally enlarged. Previous sternotomy is demonstrated. Liver: Nodular margin of the liver is present and cirrhotic features could be considered. No focal mass lesions are present. The portal vein is patent. Hepatic veins appear patent. Gallbladder: Gallbladder is surgically absent. Spleen: Spleen is normal in size and appearance. Pancreas: Pancreas demonstrates no significant abnormality. Adrenal glands: The adrenal glands demonstrate no significant abnormalities. Kidneys: The kidneys demonstrate no significant abnormalities. Aorta: Diffuse intimal calcification of the aorta, SMA, iliac arteries, and femoral arteries is demonstrated. CURT appears patent. Inferior vena cava: The inferior vena cava demonstrates no significant abnormality. Lymph nodes: No adenopathy is noted within the abdomen or pelvis. Stomach and bowel: Small hiatal hernia is present. The stomach is otherwise unremarkable. Small bowel large bowel with exception of above described suggested focus of intraluminal extravasation of contrast demonstrate no acute findings. A few scattered diverticuli are suggested within the right and left colon. Intrapelvic contents: The bladder is not well distended and demonstrates diffuse wall thickening which is somewhat asymmetric in appearance. Uterus and ovaries demonstrate no significant abnormalities. Skeletal structures: The imaged bony structures of the lumbar spine, lower chest, pelvis, proximal femurs demonstrate no acute findings. Soft tissues and muscular structure of the body wall: Previous bypass surgery in the right leg is demonstrated. Visualized portion of the bypass graft is filled with contrast. Impression: 1. Small focal area of intraluminal contrast within the cecum, apparently supplied by right iliac colic branch of the SMA, is considered compatible with intraluminal extravasation of contrast. Only a single delayed phase series was obtained and no diffusion of this focus is distinctly demonstrated. 2. There may be a few scattered diverticula within the left and right hemicolon. No inflammatory changes are present. 3. Moderately advanced atherosclerotic changes are present throughout the aorta, iliac vessels, SMA, and femoral arteries. Prior right femoral bypass graft is present. 4. Diffuse bladder wall thickening is present which is somewhat asymmetric in appearance and could reflect cystitis or lack of distention. Correlation with cystoscopy could be considered as neoplasm is not excluded. 5. Other findings as detailed. 02/17/2017 10:09 AM PROCEDURE INTERPRETED AT [facility] DEPARTMENT OF RADIOLOGY Final Report Signed by: Dr. Jaswant Aguayo
--- NOTE | 2017-02-17 11:51 | Hospitalist Progress Note ---
Assessment and Plan (1) Diabetes mellitus Status: Chronic Assessment and plan: Home medications SSI Current Visit: No Qualifiers: Diabetes mellitus type: type 2 Diabetes mellitus complication detail: with chronic kidney disease Chronic kidney disease stage: on chronic dialysis (2) Hypertension Status: Chronic Assessment and plan: Home medications Current Visit: No Qualifiers: Hypertension type: essential hypertension Qualified Code(s): I10 - Essential (primary) hypertension (3) GI bleeding Status: Acute Assessment and plan: History of GI bleeds, diverticulosis H/H stable GI managing Tagged red blood cell scan was positive CT performed Current Visit: Yes (4) Anemia Problem details: Extensive negative workup. Hgb now stable. Bleeding scan and upper and lower endoscopy negative for source but confirming blood in entire colon. Not sure if bleeding brisk enough for arteriogram to detect. Status: Chronic Assessment and plan: Monitor closely Stable Current Visit: No (5) End stage renal disease Problem details: HD tomorrow. Status: Chronic Assessment and plan: Nephrology managing Current Visit: No Hospitalist: Subjective Interval history: No acute events overnight. No bowel movement since yesterday, so no bleeding noted. Denies abdominal pain, N/V. Positive bleeding scan. Exam - Constitutional Vitals: Period Temp Pulse Resp BP Sys/Durant Pulse Ox Last 24 Hr 97.0 F-97.9 F 55-63 19-20 114-172/53-68 95-100 General appearance: over weight - Head Head exam: Present: normocephalic, atraumatic - Eye Eye exam: Present: EOMI Pupils: Present: LOUIS - ENT ENT exam: Present: normal exam - Neck Neck exam: Present: normal inspection - Respiratory Respiratory exam: Present: clear to auscultation bilaterally. Absent: wheezes - Cardiovascular Cardiovascular exam: Present: regular rate and rhythm - GI/Abdominal GI/Abdominal exam: Present: hyperactive bowel sounds, soft. Absent: tenderness - Extremities Exam Extremities exam: Present: normal inspection - Back Exam Back exam: Present: normal inspection - Neurological Exam Neurological exam: Present: alert, oriented X3 - Psychiatric Psychiatric exam: Present: normal affect, normal mood - Skin Skin exam: Present: warm, intact Results - Labs CBC & BMP: 02/17/17 04:46 02/17/17 04:46 Quality Measures - VTE Contraindication to Pharmacological VTE Prophylaxis: Active Bleeding
--- NOTE | 2017-02-17 13:27 | Nephrology Progress Note ---
Nephrology - PN: Subj Interval history: Ms. Carrillo is seen in follow-up of her end-stage renal disease. She is undergoing a workup for her occult GI bleed. Apparently she had some bleeding identified into the cecum with the CT scan today. Dialysis is planned for tomorrow. She is in no distress and her chest is clear Exam (PN)-Nephrology - Vital Signs Vital signs: Period Temp Pulse Resp BP Sys/Durant Pulse Ox Last 24 Hr 96.6 F-97.9 F 55-63 19-20 114-177/53-77 95-100 - Lab 02/17/17 04:46 02/17/17 04:46 Most recent lab results Calcium 7.6 MG/DL (8.5-10.1) L 02/17/17 04:46 Magnesium 2.1 MG/DL (1.8-2.4) 02/17/17 04:46 Assessment and Plan (1) End stage renal disease Problem details: HD tomorrow. Status: Chronic Current Visit: No (2) GI bleeding Status: Acute Current Visit: Yes
--- NOTE | 2017-02-17 16:42 | Inventional Radiology Consult ---
Assessment and Plan - Time spent with patient Time spent with patient: Greater than 30 minutes (1) GI bleeding Problem details: possible intermittent bleeding in the right colon per the NM and CTA studies, history of intermittent GI bleeding in the past but negative Endo except for diverticulosis Status: Acute Assessment and plan: Plan for visceral angio tomorrow with embolization of any active hemorrhage. As she is not currently bleeding (no blooding bowel movements today and stable HCT) the angio may be negative. However, with the suspicious finidings in the right colon/cecum, will plan to target that area for prophylactic embolization if needed. All risks and benefits discussed with the patient. All questions answered. NPO after midnight. Plan for tomorrow afternoon. Current Visit: Yes IR Consult - Data of Consult Patient: new to practice Consult date: 02/17/17 Requesting Physician: Anish Hough - Consult Narrative Reason for consult: GI bleeding History of present illness: Lorena is a 66 year old F With history of multiple admissions for recurrent GI bleeding. Recently reports several (greater than 3) episodes of bloody bowel movements within the last week. Today she has had no bloody bowel movements. Hemoglobin since admission is relatively stable at approximately 11. She has not required blood transfusions. On my interview, she is comfortable lying in bed with no distress and no abdominal pain. She has no chest pain or shortness of breath. Currently she is tolerating a limited diet. ASA level: III Brief review of systems: Neurologic: No history of stroke. Cardiovascular: Prior CABG. Genitourinary: End stage renal disease on dialysis. Hematologic: See HPI. Musculoskeletal: Prior right BKA. No extremity pain at this time. Psychiatric: No history of suicidal ideation. - Home Medications and Allergies Home Medications: Home Medications Medication Instructions Recorded Confirmed Type Carvedilol [Coreg] 6.25 mg PO BID 06/06/15 02/15/17 History Doxazosin [Cardura] 2 mg PO BID 06/06/15 02/15/17 History Insulin Glargine [Lantus] 10 unit SUBCUT BEDTIME 06/06/15 02/15/17 History glipiZIDE [Glucotrol] 10 mg PO BIDAC 06/06/15 02/15/17 History Losartan Potassium 100 mg PO DAILY 11/04/16 02/15/17 History cloNIDine TAB [Catapres Tab] 0.1 mg PO TID 11/04/16 02/15/17 History Metoclopramide HCl 5 mg PO QID PRN 11/30/16 02/15/17 History Pantoprazole Tab [Protonix Tab] 40 mg PO BID 12/30/16 02/15/17 History Calcium Acetate [Phoslo] 1,334 mg PO WITH SNACKS 01/28/17 02/15/17 History Calcium Acetate [Phoslo] 2,001 mg PO TID W/MEALS 01/28/17 02/15/17 History Cinacalcet HCl [Sensipar] 60 mg PO BID 01/28/17 02/15/17 History Pro Renal D 1 tablet PO DAILY 01/28/17 02/15/17 History Allergies/Adverse Reactions: Allergies Allergy/AdvReac Type Severity Reaction Status Date / Time peanut Allergy Severe HIVES Verified 01/30/17 13:09 PEANUT BUTTER Allergy Severe ANAPHYLAXIS Uncoded 01/28/17 19:42 12 point system: reviewed and no additional remarkable complaints except as stated (see HPI) Medical,Surgical,& Family Hx - Medical History Cardio: History of: CAD, Hypertension, [place] (2007/2008), Cardiovascular Problems Psychological: No history of: Behavior Problems Neurology: No history of: Seizures HEENT: History of: Ear Problem (GLASSES), Eye Problem, Dental Problems Endocrine: History of: Diabetes Mellitus (IDDM), Diabetes Mellitus (NIDDM) Respiratory: No history of: Respiratory Problems (FLU VAC- YES; PNEU VAC- YES.) Renal: History of: Dialysis (MWF), Renal Failure Genitourinary: History of: Kidney Stones Gastrointestinal: History of: Diverticulitis/ Diverticulosis, GERD, Gastrointestinal Bleed, Polyps, GI Problems (GI bleeding) Musculoskeletal: History of: Amputation (right BKA) Hematology: History of: Anemia Other: History of: Anesthesia Reactions (NAUSEA AND VOMITING) - Surgical History Cardiac Surgeries: Sugical HX of: Cardiac Surgery (CABG 2008) Thoracic Surgeries: Patient denies;: Organ Transplant, Lobectomy Neurologic Surgeries: Patient denies: Neurologic Surgery HEENT Surgeries: Surgical HX of: Eye Surgery (CATARACTS) Patient denies: Tonsilectomy & Adenoidectomy Abdominal Surgeries: Surgical HX of: Cholecystectomy, Colonoscopy, EGD Reproductive Surgeries: Surgical HX of;: Hysterectomy, Tubal Ligation Patient denies;: Gynecologic Surgery Orthopedic Surgeries: Surgical HX of;: Implanted Devices (fistula rt upper arm, old graft in left arm) - Family History Family History: Reports;: Family Diabetes (PARENTS), Family Heart Disease, Family Hypertension, Family Stroke (MOM) - Social History Smoking Status: Never smoker Frequency of Alcohol Use: None Type of Drug Use: None Exam - Labs CBC & BMP: 02/17/17 04:46 02/17/17 04:46 Lab Results: I have reviewed the past 24 hour labs Labs: INR 1.1 02/15/17 18:32 Image Studies: Nuclear medicine bleeding study and CT angiogram reviewed. - Constitutional Vitals: Period Temp Pulse Resp BP Sys/Durant Pulse Ox Last 24 Hr 96.6 F-97.9 F 55-61 19-20 114-177/53-77 95-100 General appearance: over weight - Eye Eye exam: Present: EOMI, scleral icterus - Respiratory Respiratory exam: Present: clear to auscultation bilaterally - Cardiovascular Cardiovascular exam: Present: regular rate and rhythm - GI/Abdominal GI/Abdominal exam: Present: normal bowel sounds. Absent: distended, firm, guarding, tenderness, rebound - Neurological Exam Neurological exam: Present: alert, oriented X3 - Psychiatric Psychiatric exam: Present: normal affect, normal mood - Skin Skin exam: Present: normal color, dry
[2017-02-17] MEDS: INSULIN GLARGINE 100 UNIT/ML SUBCUT SCH (21:19)
[2017-02-18 06:24] LABS: Basophils % 0.6 % (0.0-0.8); Eosinophils # 0.2 10*3/uL (0.0-0.87); Hematocrit 36.6 VOL% (35.7-47.0); Hemoglobin 11.8 GM/DL (12.0-16.0); Immature Granulocytes % 0.3 %; Immature Granulocytes Absolute 0.01 #; Lymphocytes # 1.2 10*3/uL (1.4-4.0); Lymphocytes % 34.7 % (21.3-54.2); Mean Corpuscular HGB Conc 32.2 GM/DL (32-36); Mean Corpuscular Hemoglobin 29 PG (27-34); Mean Corpuscular Volume 91.3 FL (87-102); Mean Platelet Volume 10.8 FL (9.6-12.0); Monocytes # 0.4 10*3/uL (0.11-0.8); Monocytes % 11.4 % (1.7-12.7); Neutrophils # 1.6 10*3/uL (1.4-7.4); Platelet Count 139 T/CUMM (130-400); Red Blood Count 4.01 MC/CUMM (3.8-5.5); Red Cell Distribution Width 18.2 % (9.3-17.3); White Blood Count 3.3 T/CUMM (4-12)
[2017-02-18 06:50] LABS: Eosinophils 4 % (0-10); Hypochromasia 1+; Lymphocytes 32 % (20-55); Platelet Estimate Normal; Segmented Neutrophils 51 % (50-85); Total Cells Counted 100
[2017-02-18 06:51] LABS: Ovalocytes Slight
[2017-02-18 06:52] LABS: Calcium 7.1 MG/DL (8.5-10.1); Magnesium 2.3 MG/DL (1.8-2.4); Osmolality,Calculated 271.8 MOS/KG (273-304); Potassium 5.2 MMOL/L (3.5-5.1)
[2017-02-18] MEDS: INSULIN LISPRO 100 UNIT/ML SUBCUT SCH ×4 (08:05→21:54)
[2017-02-18] MEDS: glipiZIDE 10 MG TABLET PO SCH ×2 (08:05→17:10)
[2017-02-18] MEDS: CALCIUM ACETATE 667 MG CAPSULE PO SCH ×3 (08:05→17:29)
[2017-02-18] MEDS: CINACALCET 30 MG TABLET PO SCH ×2 (08:21→21:55)
[2017-02-18] MEDS: CETIRIZINE 10 MG TABLET PO SCH (08:21)
[2017-02-18] MEDS: MULTIVITAMIN (BEROCCA) TABLET PO SCH (08:21)
[2017-02-18] MEDS: PANTOPRAZOLE 40 MG VIAL IV SCH ×2 (08:23→22:00)
[2017-02-18] MEDS: CARVEDILOL 6.25 MG TABLET PO SCH ×2 (08:24→21:55)
--- NOTE | 2017-02-18 11:53 | Gastrointestinal Progress Note ---
<Jacy Palumbo Sherrill - Last Filed: 02/18/17 11:51> Assessment and Plan (1) GI bleeding Problem details: possible intermittent bleeding in the right colon per the NM and CTA studies, history of intermittent GI bleeding in the past but negative Endo except for diverticulosis Status: Acute Assessment and plan: 02/18-No active bleeding today. Hgb 11.8. No abd pain. For possible embolization today. Plan and addendum to follow by Dr Hough. 02/17-No overt bleeding today. Positive bleeding scan this morning. Hgb 11.7. For stat CT of abdomen/pelvis with GI bleed protocol. Plan and addendum to follow by DR Hough Current Visit: Yes Gastroenterology - PN: Subj Interval history: CC:GI bleed Pt is seen awake and alert in dialysis. States she is feeling some better today. She has had no further active bleeding at present time. Hemoglobin is stable at 11.8. She is for attempted embolization today following dialysis. Abdomen is soft, nontender. She denies any pain. ROS: Denies SOB or chest pain Exam (Progress Note) - Constitutional Vitals: Period Temp Pulse Resp BP Sys/Durant Pulse Ox Last 24 Hr 96.2 F-97.3 F 53-62 17-20 125-177/56-77 96-100 General appearance: normal weight, no acute distress - Head Head exam: Present: normal inspection, normocephalic - Eye Eye exam: Present: other (lids and conjunctiva unremarkable). Absent: scleral icterus - ENT ENT exam: Present: normal exam, normal oropharynx - Neck Neck exam: Present: normal inspection - Respiratory Respiratory exam: Present: clear to auscultation bilaterally. Absent: rales, rhonchi, wheezes - Cardiovascular Cardiovascular exam: Present: regular rate and rhythm. Absent: diastolic murmur , JVD, systolic murmur - GI/Abdominal GI/Abdominal exam: Present: normal bowel sounds, soft. Absent: ascites, distended, mass, organomegaly, tenderness - Extremities Exam Extremities exam: Present: normal inspection, full ROM - Back Exam Back exam: Present: normal inspection - Neurological Exam Neurological exam: Present: alert, oriented X3 - Psychiatric Psychiatric exam: Present: normal affect, normal mood - Skin Skin exam: Present: normal color, warm, dry Results - Labs CBC & BMP: 02/18/17 05:39 02/18/17 05:39 Lab Results: I have reviewed the past 24 hour labs <Anish Hough - Last Filed: 02/18/17 22:31> Exam (Progress Note) - Constitutional Vitals: Period Temp Pulse Resp BP Sys/Durant Pulse Ox Last 24 Hr 96.4 F-98 F 53-69 16-20 126-254/56-86 94-100 Results - Labs CBC & BMP: 02/18/17 05:39 02/18/17 05:39
[2017-02-18] MEDS ORDERED: MIDAZOLAM 10 MG/2 ML VIAL IV ONE (12:00)
[2017-02-18] MEDS ORDERED: fentaNYL 100 MCG/2 ML VIAL IV ONE (12:00)
[2017-02-18] MEDS: cloNIDine 0.1 MG TABLET PO SCH ×4 (13:54→21:55)
[2017-02-18] MEDS: DOXAZOSIN 4 MG TABLET PO SCH ×2 (13:54→21:55)
[2017-02-18] MEDS: LOSARTAN 50 MG TABLET PO SCH (13:55)
--- NOTE | 2017-02-18 14:24 | Hospitalist Progress Note ---
Assessment and Plan (1) Diabetes mellitus Status: Chronic Assessment and plan: Home medications SSI Current Visit: No Qualifiers: Diabetes mellitus type: type 2 Diabetes mellitus complication detail: with chronic kidney disease Chronic kidney disease stage: on chronic dialysis (2) Hypertension Status: Chronic Assessment and plan: Home medications Current Visit: No Qualifiers: Hypertension type: essential hypertension Qualified Code(s): I10 - Essential (primary) hypertension (3) GI bleeding Problem details: possible intermittent bleeding in the right colon per the NM and CTA studies, history of intermittent GI bleeding in the past but negative Endo except for diverticulosis Status: Acute Assessment and plan: History of GI bleeds, diverticulosis H/H stable GI managing Tagged red blood cell scan was positive CTA with same Angio planned for today with IR Current Visit: Yes (4) Anemia Problem details: Extensive negative workup. Hgb now stable. Bleeding scan and upper and lower endoscopy negative for source but confirming blood in entire colon. Not sure if bleeding brisk enough for arteriogram to detect. Status: Chronic Assessment and plan: Monitor closely Stable Current Visit: No (5) End stage renal disease Problem details: HD tomorrow. Status: Chronic Assessment and plan: Nephrology managing Current Visit: No Hospitalist: Subjective Interval history: No acute events overnight. Seen today after HD. No complaints. Bowel movement last night with bright red blood. Possible embolization today Exam - Constitutional Vitals: Period Temp Pulse Resp BP Sys/Durant Pulse Ox Last 24 Hr 96.2 F-97.3 F 53-62 17-20 125-176/56-69 96-100 General appearance: over weight - Head Head exam: Present: normocephalic, atraumatic - Eye Eye exam: Present: EOMI Pupils: Present: LOUIS - ENT ENT exam: Present: normal exam - Neck Neck exam: Present: normal inspection - Respiratory Respiratory exam: Present: clear to auscultation bilaterally. Absent: rhonchi, wheezes - Cardiovascular Cardiovascular exam: Present: regular rate and rhythm - GI/Abdominal GI/Abdominal exam: Present: normal bowel sounds, soft. Absent: tenderness, rebound - Extremities Exam Extremities exam: Present: normal inspection - Back Exam Back exam: Present: normal inspection - Neurological Exam Neurological exam: Present: alert, oriented X3 - Psychiatric Psychiatric exam: Present: normal affect, normal mood - Skin Skin exam: Present: warm, intact Results - Labs CBC & BMP: 02/18/17 05:39 02/18/17 05:39 Quality Measures - VTE Contraindication to Pharmacological VTE Prophylaxis: Active Bleeding
[2017-02-18] MEDS ORDERED: HEPARIN/NACL 0.9% 2 UNITS/ML 3,000 ML IV ONE (15:15)
[2017-02-18] MEDS ORDERED: fentaNYL 100 MCG/2 ML VIAL ONE (15:34)
[2017-02-18] MEDS ORDERED: MIDAZOLAM 2 MG/2 ML VIAL ONE (15:35)
--- NOTE | 2017-02-18 15:43 | Nephrology Progress Note ---
Nephrology - PN: Subj Interval history: Ms. Carrillo is seen in follow-up of her end-stage renal disease. She dialyzed yesterday and did well. Her chest is clear. She is to go for arteriography with possible embolization of the bleeding area in her cecum. We will continue to follow and provide dialysis. Exam (PN)-Nephrology - Vital Signs Vital signs: Period Temp Pulse Resp BP Sys/Durant Pulse Ox Last 24 Hr 96.2 F-97.3 F 53-62 17-20 125-176/56-69 96-100 - Lab 02/18/17 05:39 02/18/17 05:39 Most recent lab results Calcium 7.1 MG/DL (8.5-10.1) L 02/18/17 05:39 Magnesium 2.3 MG/DL (1.8-2.4) 02/18/17 05:39 Assessment and Plan (1) End stage renal disease Problem details: HD tomorrow. Status: Chronic Current Visit: No (2) GI bleeding Problem details: possible intermittent bleeding in the right colon per the NM and CTA studies, history of intermittent GI bleeding in the past but negative Endo except for diverticulosis Status: Acute Current Visit: Yes
--- NOTE | 2017-02-18 17:28 | Post Interventional Procedure ---
Pre-op diagnosis: intermittent GI bleeding Post-op diagnosis: same Procedure: visceral angiogram Contrast: 122 mL Flouroscopy: 8.2 min Radiologist: Shankar Rodríguez Anesthesia: conscious sedation Medications: 1 mg intravenous Versed. 25 mcg intravenous fentanyl 40 minutes sedation time. Total Sedation Time: 40 mins Specimens: none sent Estimated blood loss: none Complications: none Condition: stable Description/Findings: Despite extensive effort including selective angiograms of the common hepatic, gastroduodenal, superior mesenteric and inferior mesenteric arteries, no definite active bleeding could be identified within the small or large bowel. Of note, the previously questioned dysplastic vessels seen on prior CTA near the cecum could not definitely be visualized, and may have been venous shunts. Of note, there are multiple very small branch vessels throughout the mesentery which supply the colon some of which extend from the gastroepiploic artery, which would be an uncommon variant. These vessels are too small to individually catheterized. Therefore, no prophylactic embolization therapy could be performed. The patient tolerated the procedure well and this procedure area in stable condition. Assessment and Plan - Time spent with patient Time spent with patient: Greater than 30 minutes (1) GI bleeding Problem details: possible intermittent bleeding in the right colon per the NM and CTA studies, history of intermittent GI bleeding in the past but negative Endo except for diverticulosis Status: Acute Assessment and plan: Plan for visceral angio tomorrow with embolization of any active hemorrhage. As she is not currently bleeding (no blooding bowel movements today and stable HCT) the angio may be negative. However, with the suspicious finidings in the right colon/cecum, will plan to target that area for prophylactic embolization if needed. All risks and benefits discussed with the patient. All questions answered. NPO after midnight. Plan for tomorrow afternoon. Current Visit: Yes
--- NOTE | 2017-02-18 17:46 | Interventional Radiology Rpt ---
IR angio mesenteric, US guide vascular access, IR angio celiac Clinical Information: Intermittent GI bleeding with no definite source on prior endoscopy. Recent nuclear medicine and CT angiography suggests a possible right colon or cecum abnormal vessel. Physician: Dr. Rodríguez Total number of images for this study: 375 Procedure: The patient was advised of the benefits, risks, and alternatives of the procedure and informed consent was obtained. A time out was performed with verification of the patient's name, MRN, site of procedure, and type of procedure to be performed. The patient was positioned in the supine position on the angiographic table. The site was prepped and draped in the usual sterile fashion. Moderate sedation was performed by the physician including the presence of an independent trained observer that assisted in monitoring the patient's level of consciousness and physiological status. Following the administration of 1 mg intravenous Versed and 25 mcg intravenous fentanyl the physician spent 40 minutes of continuous [id number] time with the patient. A automotive service manager radiograph reveals no relevant abnormality. 2% lidocaine was used for local anesthesia. The right common femoral artery was accessed with a microintroducer set using ultrasound guidance. Ultrasound guidance was utilized given that the patient has a right thigh dialysis loop graft. Permanent image capture of vascular access was retained for the patient's medical record. A short 0.018" wire was inserted and the needle was exchanged for a 4 Fr microintroducer sheath. The guidewire and dilator were removed and a 0.035" J-wire was advanced into the abdominal aorta. The right common femoral artery was accessed with an 18G single wall needle. A 0.035" J-wire was advanced into the abdominal aorta. A 6 Fr sheath was placed over the wire. A 5F C2 catheter was inserted through the sheath and placed into the upper abdominal aorta. The celiac artery was initially catheterized. Brief non-DSA angiogram demonstrates a common origin of the celiac and superior mesenteric vessels. Subsequently, the inferior mesenteric artery was catheterized. DSA angiogram demonstrates normal supply to the distal colon/rectum. There are no areas of active hemorrhage or angiodysplastic lesions visualized. Catheter was withdrawn. The celiac artery was again catheterized. The superior mesenteric artery was subselectively catheterized. DSA angiograms were performed 3 separate times with the catheter in the similar location. The findings demonstrate multiple vessels supplying the small bowel and transverse colon. There are no dominant ileocolic branches identified. There is a small branch vessel from the digital vessels which does traverse the right colon and extend toward the cecum. However, this vessel is markedly diminutive in size and could not be catheterized directly. Subsequently, again the celiac artery was catheterized. The common hepatic artery was subselectively catheterized. Arteriogram demonstrates normal appearance of the hepatic vasculature. The gastroduodenal and gastroepiploic artery are noted with no areas of active hemorrhage. Multiple small vessels arise from the distal gastroduodenal and gastroepiploic arteries which apparently supply portions of the transverse colon and distal left colon/sigmoid colon. These vessels again are submillimeter in size and no definite angiodysplastic lesions are visualized. These could not be catheterized directly due to their small size. The gastroduodenal artery was subsequently catheterized subselectively from the common hepatic artery. 2 separate DSA angiograms were performed with the catheter in this location. Again, this demonstrates gastroepiploic and GDA vessels without evidence of active extravasation. The small branch vessels which extend toward the colon to the mesentery are again noted with no definite evidence of active extravasation or focal injury/lesion. The diagnostic catheter was removed without difficulty. Right common iliac arteriogram was performed via the right common femoral artery sheath. This demonstrates the patient's known right dialysis loop graft. The arterial puncture is otherwise unremarkable for active closure device placement. A 6 [place] Angio-Seal device was utilized to close the puncture site without difficulty. A sterile dressing was applied. The patient tolerated the procedure well and was returned to the inpatient room in stable condition. EBL: <10 mL. Complications: None. Fluoroscopy time: 8.2 minutes Conclusion: Successful multiple selective visceral arteriograms as detailed above. No active hemorrhage was visualized. No obvious angiodysplastic lesions are visualized. Attempted targeted evaluation of the question lesions arising within the right colon/cecum could not be visualized and/or are too small for direct catheterization. No embolization was performed at this time. If recurrent hemorrhage occurs, consider repeat CTA or endoscopy as clinically indicated. PROCEDURE INTERPRETED AT [facility] DEPARTMENT OF RADIOLOGY Final Report Signed by: Shankar Rodríguez
[2017-02-18] MEDS: PANTOPRAZOLE 40 MG TABLET PO SCH (21:57)
[2017-02-18] MEDS: INSULIN GLARGINE 100 UNIT/ML SUBCUT SCH (23:00)
[2017-02-19 04:38] LABS: Basophils % 0.3 % (0.0-0.8); Eosinophils # 0.2 10*3/uL (0.0-0.87); Eosinophils % 5.1 % (0.00-10.9); Hematocrit 32.7 VOL% (35.7-47.0); Hemoglobin 10.5 GM/DL (12.0-16.0); Immature Granulocytes % 0.3 %; Immature Granulocytes Absolute 0.01 #; Lymphocytes # 0.7 10*3/uL (1.4-4.0); Lymphocytes % 20.8 % (21.3-54.2); Mean Corpuscular HGB Conc 32.1 GM/DL (32-36); Mean Corpuscular Hemoglobin 29 PG (27-34); Mean Corpuscular Volume 90.6 FL (87-102); Mean Platelet Volume 10.8 FL (9.6-12.0); Monocytes # 0.4 10*3/uL (0.11-0.8); Monocytes % 11.3 % (1.7-12.7); Neutrophils # 2.1 10*3/uL (1.4-7.4); Neutrophils % 62.2 % (38.7-73.9); Platelet Count 136 T/CUMM (130-400); Red Blood Count 3.61 MC/CUMM (3.8-5.5); White Blood Count 3.4 T/CUMM (4-12)
[2017-02-19 05:13] LABS: Calcium 7.1 MG/DL (8.5-10.1); Magnesium 2.2 MG/DL (1.8-2.4); Osmolality,Calculated 263.9 MOS/KG (273-304); Potassium 4.7 MMOL/L (3.5-5.1)
[2017-02-19 05:33] LABS: Eosinophils 5 % (0-10); Hypochromasia 1+; Lymphocytes 18 % (20-55); Ovalocytes Slight; Platelet Estimate Normal; Segmented Neutrophils 61 % (50-85); Total Cells Counted 100
[2017-02-19] MEDS: INSULIN LISPRO 100 UNIT/ML SUBCUT SCH ×4 (08:03→20:59)
[2017-02-19] MEDS: glipiZIDE 10 MG TABLET PO SCH ×2 (08:04→16:34)
[2017-02-19] MEDS: DOXAZOSIN 4 MG TABLET PO SCH ×2 (09:01→21:40)
[2017-02-19] MEDS: LOSARTAN 50 MG TABLET PO SCH (09:01)
[2017-02-19] MEDS: CALCIUM ACETATE 667 MG CAPSULE PO SCH ×3 (09:02→16:33)
[2017-02-19] MEDS: CARVEDILOL 6.25 MG TABLET PO SCH ×2 (09:02→21:40)
[2017-02-19] MEDS: MULTIVITAMIN (BEROCCA) TABLET PO SCH (09:02)
[2017-02-19] MEDS: PANTOPRAZOLE 40 MG TABLET PO SCH ×2 (09:02→21:40)
[2017-02-19] MEDS: CETIRIZINE 10 MG TABLET PO SCH (09:02)
[2017-02-19] MEDS: cloNIDine 0.1 MG TABLET PO SCH ×3 (09:02→21:40)
[2017-02-19] MEDS: CINACALCET 30 MG TABLET PO SCH ×2 (09:02→21:40)
--- NOTE | 2017-02-19 09:27 | Gastrointestinal Progress Note ---
<PaulinoqiJacy Sherrill - Last Filed: 02/19/17 09:24> Assessment and Plan (1) GI bleeding Problem details: possible intermittent bleeding in the right colon per the NM and CTA studies, history of intermittent GI bleeding in the past but negative Endo except for diverticulosis Status: Acute Assessment and plan: 02/19-Hgb holding at 10.5. Angiogram findings noted. One episode of dark red blood today. Plan and addendum to follow by Dr Hough. 02/18-No active bleeding today. Hgb 11.8. No abd pain. For possible embolization today. Plan and addendum to follow by Dr Hough. 02/17-No overt bleeding today. Positive bleeding scan this morning. Hgb 11.7. For stat CT of abdomen/pelvis with GI bleed protocol. Plan and addendum to follow by DR Hough Current Visit: Yes Gastroenterology - PN: Subj Interval history: CC: GI bleed Pt is seen awake and alert sitting up in bed. She states she had an uneventful night. States that she has had one episode of dark blood noted in her stool today. She underwent angiogram on yesterday with inability to embolize due to no definite bleeding visualized. Hemoglobin is holding at 10.5. Abdomen is soft , nontender. ROS: Denies SOB or chest pain Exam (Progress Note) - Constitutional Vitals: Period Temp Pulse Resp BP Sys/Durant Pulse Ox Last 24 Hr 96.8 F-98.4 F 56-69 16-20 133-254/60-86 94-100 General appearance: normal weight, no acute distress - Head Head exam: Present: normal inspection, normocephalic - Eye Eye exam: Present: other (lids and conjunctiva unremarkable). Absent: scleral icterus - ENT ENT exam: Present: normal exam, normal oropharynx - Neck Neck exam: Present: normal inspection - Respiratory Respiratory exam: Present: clear to auscultation bilaterally. Absent: rales, rhonchi, wheezes - Cardiovascular Cardiovascular exam: Present: regular rate and rhythm. Absent: diastolic murmur , JVD, systolic murmur - GI/Abdominal GI/Abdominal exam: Present: normal bowel sounds, soft. Absent: ascites, distended, mass, organomegaly, tenderness - Extremities Exam Extremities exam: Present: normal inspection, full ROM - Back Exam Back exam: Present: normal inspection - Neurological Exam Neurological exam: Present: alert, oriented X3 - Psychiatric Psychiatric exam: Present: normal affect, normal mood - Skin Skin exam: Present: normal color, warm, dry Results - Labs CBC & BMP: 02/19/17 03:41 02/19/17 03:41 Lab Results: I have reviewed the past 24 hour labs <Anish Hough - Last Filed: 02/19/17 10:39> Exam (Progress Note) - Constitutional Vitals: Period Temp Pulse Resp BP Sys/Durant Pulse Ox Last 24 Hr 96.8 F-98.4 F 54-69 16-20 133-254/58-86 94-100 Results - Labs CBC & BMP: 02/19/17 03:41 02/19/17 03:41
--- NOTE | 2017-02-19 11:59 | Nephrology Progress Note ---
Nephrology - PN: Subj Interval history: Ms. Carrillo is seen in follow-up of her end-stage renal disease. She is doing well and did dialyze yesterday. She had her angiography yesterday with no bleeding site found. No embolization was done. Overall she feels well and is in no distress. Her abdomen is soft. We anticipate dialysis tomorrow. Her hematocrit is fallen from 38 on admission to 32 now but she does not need transfusion at this point. Exam (PN)-Nephrology - Vital Signs Vital signs: Period Temp Pulse Resp BP Sys/Durant Pulse Ox Last 24 Hr 96.8 F-98.4 F 54-69 16-20 133-254/58-86 94-100 - Lab 02/19/17 03:41 02/19/17 03:41 Most recent lab results Calcium 7.1 MG/DL (8.5-10.1) L 02/19/17 03:41 Magnesium 2.2 MG/DL (1.8-2.4) 02/19/17 03:41 Assessment and Plan (1) End stage renal disease Problem details: HD tomorrow. Status: Chronic Current Visit: No (2) GI bleeding Problem details: possible intermittent bleeding in the right colon per the NM and CTA studies, history of intermittent GI bleeding in the past but negative Endo except for diverticulosis Status: Acute Current Visit: Yes
[2017-02-19] MEDS: INSULIN GLARGINE 100 UNIT/ML SUBCUT SCH (21:00)
[2017-02-20] MEDS: INSULIN LISPRO 100 UNIT/ML SUBCUT SCH ×2 (07:30→13:03)
--- NOTE | 2017-02-20 08:56 | Gastrointestinal Progress Note ---
<DeepaliJacy Sherrill - Last Filed: 02/20/17 08:54> Assessment and Plan (1) GI bleeding Problem details: possible intermittent bleeding in the right colon per the NM and CTA studies, history of intermittent GI bleeding in the past but negative Endo except for diverticulosis Status: Acute Assessment and plan: 02/20-no overt bleeding. Tolerating diet. Recheck H&H today. For possible discharge home today. Plan an addendum to follow by Dr. Hough. 02/19-Hgb holding at 10.5. Angiogram findings noted. One episode of dark red blood today. Plan and addendum to follow by Dr Hough. 02/18-No active bleeding today. Hgb 11.8. No abd pain. For possible embolization today. Plan and addendum to follow by Dr Hough. 02/17-No overt bleeding today. Positive bleeding scan this morning. Hgb 11.7. For stat CT of abdomen/pelvis with GI bleed protocol. Plan and addendum to follow by DR Hough Current Visit: Yes Gastroenterology - PN: Subj Interval history: CC: GI bleed Patient is seen awake and alert, prepared to go to dialysis this morning. She denies any abdominal pain, nausea or vomiting. States she is seeing no further bleeding at this time. Hemoglobin has remained stable however will recheck this today. Abdomen is soft, nontender. She is for possible discharge home later today. ROS: Denies shortness of breath or chest pain Exam (Progress Note) - Constitutional Vitals: Period Temp Pulse Resp BP Sys/Durant Pulse Ox Last 24 Hr 96.1 F-97.6 F 52-61 15-18 123-149/56-65 99-100 General appearance: normal weight, no acute distress - Head Head exam: Present: normal inspection, normocephalic - Eye Eye exam: Present: other (Lids and conjunctive are unremarkable). Absent: scleral icterus - ENT ENT exam: Present: normal exam, normal oropharynx - Neck Neck exam: Present: normal inspection - Respiratory Respiratory exam: Present: clear to auscultation bilaterally. Absent: rales, rhonchi, wheezes - Cardiovascular Cardiovascular exam: Present: regular rate and rhythm. Absent: diastolic murmur , JVD, systolic murmur - GI/Abdominal GI/Abdominal exam: Present: normal bowel sounds, soft. Absent: ascites, distended, mass, organomegaly, tenderness - Extremities Exam Extremities exam: Present: normal inspection, full ROM - Back Exam Back exam: Present: normal inspection - Neurological Exam Neurological exam: Present: alert, oriented X3 - Psychiatric Psychiatric exam: Present: normal affect, normal mood - Skin Skin exam: Present: normal color, warm, dry Results - Labs CBC & BMP: 02/19/17 03:41 02/19/17 03:41 Lab Results: I have reviewed the past 24 hour labs <Anish Hough - Last Filed: 02/20/17 12:58> Exam (Progress Note) - Constitutional Vitals: Period Temp Pulse Resp BP Sys/Durant Pulse Ox Last 24 Hr 96.1 F-97.5 F 52-61 15-20 122-151/56-62 97-100 Results - Labs CBC & BMP: 02/20/17 08:55 02/19/17 03:41
[2017-02-20 09:13] LABS: Hematocrit 32.3 VOL% (35.7-47.0); Hemoglobin 10.4 GM/DL (12.0-16.0)
--- NOTE | 2017-02-20 09:50 | Dialysis Note ---
Dialysis Note - Dialysis Note Ms. Carrillo is seen during hemodialysis. She is tolerating it well. She anticipates discharge later today. She will continue dialysis in the cab on Thursday.
--- NOTE | 2017-02-20 12:24 | Discharge Summary ---
<Emily Oh - Last Filed: 02/20/17 14:00> Hospital Course - Hospital Course Hospital Course: Ms. May is a 66-year-old -[place] female amputee patient with a history of diverticulitis, GERD, recurrent GI bleeding, polyps, end-stage renal disease on dialysis, hypertension, IL, coronary artery disease, CAB, diabetes that presented to the ED on 02/15 with complaints of bright red blood per rectum. The patient stated that she had about 7 episodes of bloody stools. She has had recurrent GI bleeding in the past with multiple evaluations but no definitive source. She was admitted to the hospitalist service for further evaluation and treatment. GI was consulted to evaluate patient. Patient was seen by Dr. Hough in the past and had an extensive workup performed. GI Bleed scan nuclear medicine was performed which showed possible hemorrhage within the large bowel. CT A/P was inconclusive. Interventional radiology perfomred visceral angio, which did not show any active bleeding. Patient's results were discussed with her and it was determined that a watchful waiting approach be taken versus a repeat colonoscopy. Nephrology was also consulted for inpatient HD. Today the patient is stable. H&H is 10.4 and 32.3. Vital signs were stable and patient was discharged to home. Discharge Plan - Discharge Data Disposition: Disch To Home/Self Care - Discharge Medications New Calcium Acetate [Phoslo] 1,334 mg PO WITH SNACKS capsule Carvedilol [Coreg] 6.25 mg PO BID tablet Cinacalcet [Sensipar] 60 mg PO BID tablet Losartan [Cozaar] 100 mg PO DAILY tablet cloNIDine TAB [Catapres Tab] 0.1 mg PO TID tablet glipiZIDE [Glucotrol] 10 mg PO BIDAC tablet Calcium Acetate [Phoslo] 2,001 mg PO TID W/MEALS capsule Doxazosin [Cardura] 2 mg PO BID tablet Continue Insulin Glargine [Lantus] 10 unit SUBCUT BEDTIME Metoclopramide HCl 5 mg PO QID PRN PRN Reason: Indigestion Pro Renal D 1 tablet PO DAILY Pantoprazole Tab [Protonix Tab] 40 mg PO BID Discontinued glipiZIDE [Glucotrol] 10 mg PO BIDAC Carvedilol [Coreg] 6.25 mg PO BID Doxazosin [Cardura] 2 mg PO BID Losartan Potassium 100 mg PO DAILY Calcium Acetate [Phoslo] 2,001 mg PO TID W/MEALS Cinacalcet HCl [Sensipar] 60 mg PO BID cloNIDine TAB [Catapres Tab] 0.1 mg PO TID Calcium Acetate [Phoslo] 1,334 mg PO WITH SNACKS - Follow Up or Referral - Forms/Instructions Exam - Constitutional Vitals: Period Temp Pulse Resp BP Sys/Durant Pulse Ox Last 24 Hr 96.1 F-97.5 F 52-61 15-20 122-151/56-62 97-100 Discharge Results Labs on day of discharge: Labs from last 24 hours 02/20/17 02/20/17 02/20/17 12:41 08:55 07:33 Hgb 10.4 L Hct 32.3 L POC Glucose 88 75 02/20/17 02/19/17 02/19/17 00:25 20:51 16:17 Hgb Hct POC Glucose 78 100 243 H DS: Provider Date of admission: 02/15/17 19:53 Primary care physician: Austin García Jr., MD Attending physician on admission: Roberto Simpson MD Consults: 02/15/17 22:41 Consult to Physician [CONS] Routine Comment: ESRD on HD MWF Consulting Provider: Chapo Harp Consulting Provider Notified: Yes When should Consulting Provider be notified: Now Consult to Specialist Group: Nephrology When should Consulting Provider be notified: Now Person Notified: Date Notified: 02/16/17 Time Notified: 08:13 Consult to Physician [CONS] Routine Comment: lgib Consulting Provider: Gianluca Smith Consulting Provider Notified: Yes When should Consulting Provider be notified: Now Consult to Specialist Group: Gastroenterology When should Consulting Provider be notified: Now Person Notified: NOTIFIED Date Notified: 02/16/17 Time Notified: 08:11 02/17/17 13:32 Consult to Physician [CONS] Routine Comment: CT angiogram Consulting Provider: Shankar Rodríguez Discharging clinician: Emily Oh NP <Armaan Pierre - Last Filed: 02/20/17 15:13> Hospital Course - Time spent with patient Time with patient DS: Less than 30 minutes Diagnosis - Discharge Diagnosis (1) Diabetes mellitus Status: Chronic (2) Hypertension Status: Chronic (3) GI bleeding Status: Resolved (4) Anemia Status: Chronic (5) End stage renal disease Status: Chronic Discharge Plan - Discharge Data Condition at Discharge: Stable Discharge Diet: high fiber diet Activity: increase activity as tolerated Hygiene: no restrictions Weight Bearing at Discharge: weight bear as tolerated Driving: no restrictions Contact your physician if you experience:: fever over 101, Shortness of breath, Bleeding Exam - Constitutional General appearance: over weight - Head Head exam: Present: normocephalic, atraumatic - Eye Eye exam: Present: EOMI Pupils: Present: LOUIS - ENT ENT exam: Present: normal exam - Neck Neck exam: Present: normal inspection - Respiratory Respiratory exam: Present: clear to auscultation bilaterally. Absent: rhonchi, wheezes - Cardiovascular Cardiovascular exam: Present: regular rate and rhythm - GI/Abdominal GI/Abdominal exam: Present: normal bowel sounds, soft - Extremities Exam Extremities exam: Present: normal inspection - Back Exam Back exam: Present: normal inspection - Neurological Exam Neurological exam: Present: alert, oriented X3 - Psychiatric Psychiatric exam: Present: normal affect, normal mood - Skin Skin exam: Present: warm, intact
[2017-02-20 12:30] VITALS: BP 151/61
[2017-02-20] MEDS: CINACALCET 30 MG TABLET PO SCH (12:55)
[2017-02-20] MEDS: PANTOPRAZOLE 40 MG TABLET PO SCH (12:55)
[2017-02-20] MEDS: DOXAZOSIN 4 MG TABLET PO SCH (12:56)
[2017-02-20] MEDS: CALCIUM ACETATE 667 MG CAPSULE PO SCH (12:56)
[2017-02-20] MEDS: CARVEDILOL 6.25 MG TABLET PO SCH (12:57)
[2017-02-20] MEDS: cloNIDine 0.1 MG TABLET PO SCH (12:57)
[2017-02-20] MEDS: MULTIVITAMIN (BEROCCA) TABLET PO SCH (12:57)
[2017-02-20] MEDS: CETIRIZINE 10 MG TABLET PO SCH (12:57)
[2017-02-20] MEDS: LOSARTAN 50 MG TABLET PO SCH (12:57)
[2017-02-20] MEDS: glipiZIDE 10 MG TABLET PO SCH (13:02)
== END 2017-02-20 13:20 | disposition home or self-care (01) | DRG 377 ==
LOC: N.ED 17:26 → SUATTDRO 19:53 → N.EDINP 19:53 → N.4E 22:04
PROVIDERS: ADMIT Internal Medicine Infectious Disease; ATTEND Internal Medicine
PROC: IRAGMES (2017-02-18 15:45)

== ENCOUNTER 2017-03-09 00:27 | Inpatient (IN) ==
[2017-03-09] MEDS ORDERED: PANTOPRAZOLE 40 MG VIAL IV STA (00:41)
[2017-03-09] MEDS ORDERED: ONDANSETRON 4 MG/2 ML VIAL IV STA (00:41)
[2017-03-09] MEDS ORDERED: SODIUM CHLORIDE 0.9% 1,000 ML IV STA (00:41)
[2017-03-09] MEDS ORDERED: PANTOPRAZOLE 40 MG VIAL IV ONE (00:55)
[2017-03-09] MEDS ORDERED: ONDANSETRON 4 MG/2 ML VIAL ONE (00:55)
[2017-03-09 01:03] LABS: Basophils % 0.2 % (0.0-0.8); Eosinophils # 0.4 10*3/uL (0.0-0.87); Eosinophils % 7.9 % (0.00-10.9); Hematocrit 20.3 VOL% (35.7-47.0); Hemoglobin 6.5 GM/DL (12.0-16.0); Immature Granulocytes % 0.4 %; Immature Granulocytes Absolute 0.02 #; Lymphocytes % 21.9 % (21.3-54.2); Mean Corpuscular Hemoglobin 30 PG (27-34); Mean Corpuscular Volume 93.5 FL (87-102); Mean Platelet Volume 9.9 FL (9.6-12.0); Monocytes # 0.7 10*3/uL (0.11-0.8); Monocytes % 15.1 % (1.7-12.7); Neutrophils # 2.5 10*3/uL (1.4-7.4); Neutrophils % 54.5 % (38.7-73.9); Platelet Count 182 T/CUMM (130-400); Red Blood Count 2.17 MC/CUMM (3.8-5.5); Red Cell Distribution Width 17.9 % (9.3-17.3); White Blood Count 4.6 T/CUMM (4-12)
[2017-03-09 01:12] LABS: INR 1.1; PT Patient Result 11.3 SECS
--- NOTE | 2017-03-09 01:21 | Emergency Department Note ---
Demarco Silver Gwan, am scribing for, and in the presence of, Chapo Aguayo MD 00:49. Olivier Silver Robert M, MD, personally performed the services described in this documentation, ascribed by Elio Pal in my presence, and it is both accurate and complete . Arrival - Arrival Chief Complaint: GI Bleed/Rectal Stated Complaint: gi bleed ED Nursing Triage Note: pt brought to [facility] via EMS with c/o intermittent bright red rectal bleeding x 2 days. HX of ESRD with Dialysis on M/W/F, HTN, and DM. Accu check-115@ scene. pt A+Ox3 at triage. denies pain and SOB Mode of Arrival: Stretcher Limitations: No Limitations Source: Patient, Old Records Reviewed, RN Notes Reviewed Time Seen by Provider: 03/09/17 00:41 - History of Present Illness HPI Narrative: Patient is a 66 y/o black female, with a hx of dialysis M/W/F, who presents to the ED via EMS with a c/o intermittent bright red rectal bleeding and abd pain with an onset 2 days ago. Patient confirmed that her onset occurred 2 days ago and that it was heavy. She continued to note that she received some relief during the evening of onset but last night her sxs returned prompting her visit to the ED for further evaluation. Henrik said that she has had a scope performed 6 months ago and that it was negative. She denies any hemrroids, being on any blood thinners, having any fever or having a PCP. Patient is followed by Dr. García. No other problems/complaints reported in ED. Onset (ago): day(s) Consistency: intermittent Severity: moderate Allergies/Adverse Reactions: Allergies Allergy/AdvReac Type Severity Reaction Status Date / Time peanut Allergy Severe HIVES Verified 01/30/17 13:09 PEANUT BUTTER Allergy Severe ANAPHYLAXIS Uncoded 01/28/17 19:42 Home Medications: Home Medications Medication Instructions Recorded Confirmed Type Insulin Glargine [Lantus] 10 unit SUBCUT BEDTIME 06/06/15 02/15/17 History Metoclopramide HCl 5 mg PO QID PRN 11/30/16 02/15/17 History Pantoprazole Tab [Protonix Tab] 40 mg PO BID 12/30/16 02/15/17 History Pro Renal D 1 tablet PO DAILY 01/28/17 02/15/17 History Calcium Acetate [Phoslo] 1,334 mg PO WITH SNACKS capsule 02/20/17 Rx Calcium Acetate [Phoslo] 2,001 mg PO TID W/MEALS capsule 02/20/17 Rx Carvedilol [Coreg] 6.25 mg PO BID tablet 02/20/17 Rx Cinacalcet [Sensipar] 60 mg PO BID tablet 02/20/17 Rx Doxazosin [Cardura] 2 mg PO BID tablet 02/20/17 Rx Losartan [Cozaar] 100 mg PO DAILY tablet 02/20/17 Rx cloNIDine TAB [Catapres Tab] 0.1 mg PO TID tablet 02/20/17 Rx glipiZIDE [Glucotrol] 10 mg PO BIDAC tablet 02/20/17 Rx Review of System - Review of System 12 point system: reviewed and no additional remarkable complaints except as stated - Review of System Constitutional: Absent: chills, fever Eyes: Absent: discharge Head/Ears/Nose/Throat: Absent: earache Respiratory: Absent: cough, wheezing Cardiovascular: Absent: chest pain Gastrointestinal: Present: as per HPI, abdominal pain. Absent: nausea, vomiting , diarrhea Genitourinary female: Present: as per HPI, other (rectal bleeding ). Absent: dysuria Musculoskeletal: Absent: arm pain, back pain, leg pain, neck pain Skin: Absent: rash, lesions Neurological: Absent: headache, weakness Psychiatric: Absent: anxiety, depression Medical,Surgical,& Family Hx - Medical History Cardio: History of: CAD, Hypertension, [place] (2007/2008), Cardiovascular Problems Psychological: No history of: Behavior Problems Neurology: No history of: Seizures HEENT: History of: Ear Problem (GLASSES), Eye Problem, Dental Problems Endocrine: History of: Diabetes Mellitus (IDDM), Diabetes Mellitus (NIDDM) Respiratory: No history of: Respiratory Problems (FLU VAC- YES; PNEU VAC- YES.) Renal: History of: Dialysis (MWF), Renal Failure Genitourinary: History of: Kidney Stones Gastrointestinal: History of: Diverticulitis/ Diverticulosis, GERD, Gastrointestinal Bleed, Polyps, GI Problems (GI bleeding) Musculoskeletal: History of: Amputation (right BKA) Hematology: History of: Anemia Other: History of: Anesthesia Reactions (NAUSEA AND VOMITING) - Surgical History Cardiac Surgeries: Sugical HX of: Cardiac Surgery (CABG 2008) Thoracic Surgeries: Patient denies;: Organ Transplant, Lobectomy Neurologic Surgeries: Patient denies: Neurologic Surgery HEENT Surgeries: Surgical HX of: Eye Surgery (CATARACTS) Patient denies: Tonsilectomy & Adenoidectomy Abdominal Surgeries: Surgical HX of: Cholecystectomy, Colonoscopy, EGD Reproductive Surgeries: Surgical HX of;: Hysterectomy, Tubal Ligation Patient denies;: Gynecologic Surgery Orthopedic Surgeries: Surgical HX of;: Implanted Devices (fistula rt upper arm, old graft in left arm) - Family History Family History: Reports;: Family Diabetes (PARENTS), Family Heart Disease, Family Hypertension, Family Stroke (MOM) - Social History Smoking Status: Never smoker Frequency of Alcohol Use: None Type of Drug Use: None Exam Vital Signs: Vital Signs Temperature 98.3 F 03/09/17 00:40 Pulse Rate 68 03/09/17 00:40 Respiratory Rate 18 03/09/17 00:40 Blood Pressure 158/45 03/09/17 00:40 O2 Sat by Pulse Oximetry 100 03/09/17 00:28 - General General appearance: alert, in no apparent distress - Head Head exam: Present: atraumatic, normocephalic - Eye Eye exam: Present: normal appearance, PERRL, EOMI - ENT ENT exam: Present: normal oropharynx, mucous membranes moist, TM's normal bilaterally, normal external ear exam - Neck Neck exam: Present: full ROM, trachea midline. Absent: tenderness - Chest Chest inspection: Present: symmetric chest wall rise. Absent: tenderness - Respiratory Respiratory exam: Present: normal lung sounds bilaterally. Absent: respiratory distress - Cardiovascular Cardiovascular exam: Present: regular rate, normal rhythm, normal heart sounds. Absent: murmur - Abdominal Exam Abdominal exam: Present: soft, normal bowel sounds. Absent: distention, tenderness - Extremities Exam Extremities exam: Present: full ROM. Absent: tenderness - Back Exam Back exam: Present: full ROM. Absent: tenderness - Neurological Exam Neurological exam: Present: alert, oriented X3, CN II-XII intact. Absent: motor sensory deficit - Psychiatric Psychiatric exam: Present: normal affect, normal mood - Skin Skin exam: Present: warm, dry, intact, normal color Course - Reevaluation(s) Reevaluation #1: Patient has reported no further bleeding at this time, however given the labs I feel she likely will need to come and get some blood. She remains stable. Time: 02:12 - Consultations Consultation #1: Edilberto Carias will evaluate and admit the patient. Time: 02:12 Results - Labs CBC & BMP: 03/09/17 00:48 03/09/17 00:48 Lab Results: I have reviewed the patients labs Labs: Lab Results WBC 4.6 T/CUMM (4-12) 03/09/17 00:48 RBC 2.17 MC/CUMM (3.8-5.5) L 03/09/17 00:48 Hgb 6.5 GM/DL (12.0-16.0) L 03/09/17 00:48 Hct 20.3 VOL% (35.7-47.0) L 03/09/17 00:48 MCV 93.5 FL (87-102) 03/09/17 00:48 MCH 30 PG (27-34) 03/09/17 00:48 MCHC 32.0 GM/DL (32-36) 03/09/17 00:48 RDW 17.9 % (9.3-17.3) H 03/09/17 00:48 Plt Count 182 T/CUMM (130-400) 03/09/17 00:48 MPV 9.9 FL (9.6-12.0) 03/09/17 00:48 Neut % (Auto) 54.5 % (38.7-73.9) 03/09/17 00:48 Lymph % (Auto) 21.9 % (21.3-54.2) 03/09/17 00:48 Upson % (Auto) 15.1 % (1.7-12.7) H 03/09/17 00:48 Eos % (Auto) 7.9 % (0.00-10.9) 03/09/17 00:48 Baso % (Auto) 0.2 % (0.0-0.8) 03/09/17 00:48 Neut # (Auto) 2.5 10*3/uL (1.4-7.4) 03/09/17 00:48 Lymph # (Auto) 1.0 10*3/uL (1.4-4.0) L 03/09/17 00:48 Upson # (Auto) 0.7 10*3/uL (0.11-0.8) 03/09/17 00:48 Eos # (Auto) 0.4 10*3/uL (0.0-0.87) 03/09/17 00:48 Baso # (Auto) 0.0 10*3/uL (0.0-0.2) 03/09/17 00:48 Immature Gran % 0.4 % 03/09/17 00:48 Nucleated RBC % 0.0 /100WBC 03/09/17 00:48 Immature Gran # 0.02 # 03/09/17 00:48 Nucleated RBCs # 0.00 10*3/uL 03/09/17 00:48 Atypical Lymphocytes Few 03/09/17 00:48 Platelet Estimate Normal 03/09/17 00:48 Hypochromasia 1+ 03/09/17 00:48 Elliptocytes 1+ 03/09/17 00:48 INR 1.1 03/09/17 00:48 PT Patient/Control Mix 11.3 SECS 03/09/17 00:48 Sodium 144 MMOL/L (136-145) 03/09/17 00:48 Potassium 4.5 MMOL/L (3.5-5.1) 03/09/17 00:48 Chloride 102 MMOL/L (98-107) 03/09/17 00:48 Carbon Dioxide 29 MMOL/L (21-32) 03/09/17 00:48 Anion Gap 17.5 MMOL/L (5.0-15.0) H 03/09/17 00:48 BUN 76 MG/DL (7-18) H 03/09/17 00:48 Creatinine 9.50 MG/DL (0.55-1.02) H 03/09/17 00:48 GFR Calculation 4 ML/MIN 03/09/17 00:48 BUN/Creatinine Ratio 8.00 RATIO (6.00-20.00) 03/09/17 00:48 Glucose 112 MG/DL (74-106) H 03/09/17 00:48 Calculated Osmolality 309.8 MOS/KG (273-304) H 03/09/17 00:48 Calcium 7.2 MG/DL (8.5-10.1) L 03/09/17 00:48 Magnesium 1.9 MG/DL (1.8-2.4) 03/09/17 00:48 Total Bilirubin < 0.39 MG/DL (0.2-1.0) 03/09/17 00:48 AST 16 U/L (0-37) 03/09/17 00:48 ALT 11 U/L (13-56) L 03/09/17 00:48 Alkaline Phosphatase 128 U/L (45-117) H 03/09/17 00:48 Total Protein 5.5 G/DL (6.4-8.3) L 03/09/17 00:48 Albumin 2.8 G/DL (3.4-5.0) L 03/09/17 00:48 Globulin 2.7 G/DL (2.3-3.5) 03/09/17 00:48 Albumin/Globulin Ratio 1.0 RATIO (1.1-2.2) L 03/09/17 00:48 Blood Type B POSITIVE 03/09/17 00:48 Antibody Screen Negative 03/09/17 00:48 Blood Type B POSITIVE 03/09/17 00:48 Antibody Screen Negative 03/09/17 00:48 Disposition Clinical Impression: Lower GI bleed, Symptomatic anemia, Coronary artery disease, ESRD on dialysis, Diabetes mellitus, GERD (gastroesophageal reflux disease) Case discussed with: patient, patient's family Disposition: Still a Patient Condition: Stable Time of Disposition: 02:12
[2017-03-09 01:26] LABS: Alanine Aminotransferase 11 U/L (13-56); Albumin 2.8 G/DL (3.4-5.0); Alkaline Phosphatase 128 U/L (45-117); Aspartate Amino Transferase 16 U/L (0-37); Bilirubin,Total < 0.39 MG/DL (0.2-1.0); Blood Urea Nitrogen 76 MG/DL (7-18); Calcium 7.2 MG/DL (8.5-10.1); Glucose 112 MG/DL (74-106); Magnesium 1.9 MG/DL (1.8-2.4); Osmolality,Calculated 309.8 MOS/KG (273-304); Potassium 4.5 MMOL/L (3.5-5.1); Sodium 144 MMOL/L (136-145); Total Protein 5.5 G/DL (6.4-8.3)
[2017-03-09 01:39] LABS: Elliptocytes 1+; Hypochromasia 1+; Platelet Estimate Normal
[2017-03-09 01:40] LABS: Atypical Lymphocytes Few
[2017-03-09] MEDS ORDERED: ALBUTEROL 2.5 MG/3 ML NEB RESP TX PRN (02:59)
[2017-03-09] MEDS ORDERED: ONDANSETRON 4 MG/2 ML VIAL IV PRN (02:59)
[2017-03-09] MEDS ORDERED: METOCLOPRAMIDE 5 MG TABLET PO PRN (03:06)
[2017-03-09] MEDS ORDERED: DEXTROSE 50% 25 GM/50 ML VIAL IV PRN (03:07)
[2017-03-09] MEDS ORDERED: GLUCAGON 1 MG VIAL IM PRN (03:07)
--- NOTE | 2017-03-09 03:12 | Hospitalist History & Physical ---
Assessment and Plan (1) Status post below knee amputation of right lower extremity Status: Acute Current Visit: No (2) Diabetes mellitus Status: Chronic Current Visit: No (3) Hypertension Status: Chronic Current Visit: No (4) Lower GI hemorrhage Status: Acute Current Visit: No (5) ESRD on dialysis Status: Chronic Assessment and plan: Our plan for her will be admission to ICU for close observation. We will also draw serial H&H's and transfuse during dialysis as needed. Will consult both GI and nephrology. Continue home meds as appropriate will hold some of her blood pressure medicines at this time. Will probably have to restart them later. Insulin sliding scale for now. Current Visit: Yes History of Present Illness Chief complaint: GI bleed History of present illness: Ms. Carrillo is a 66 year old female with past medical history significant for hypertension, end-stage renal disease on hemodialysis diabetes who was in her normal state of health until 2 days ago. Patient reports that at that time she started noticing bright red blood per rectum when she has bowel movements. Patient was brought up here for further evaluation. Symptomatically she does not have a significant list of complaints. Her H&H had dropped significantly. I was consulted to admit her. Home Medications Medication Instructions Recorded Confirmed Type Insulin Glargine [Lantus] 10 unit SUBCUT BEDTIME 06/06/15 03/09/17 History Metoclopramide HCl 5 mg PO QID PRN 11/30/16 03/09/17 History Pantoprazole Tab [Protonix Tab] 40 mg PO BID 12/30/16 03/09/17 History Pro Renal D 1 tablet PO DAILY 01/28/17 03/09/17 History Carvedilol [Coreg] 6.25 mg PO BID tablet 02/20/17 03/09/17 Rx Cinacalcet [Sensipar] 60 mg PO BID tablet 02/20/17 03/09/17 Rx Doxazosin [Cardura] 2 mg PO BID tablet 02/20/17 03/09/17 Rx Losartan [Cozaar] 100 mg PO DAILY tablet 02/20/17 03/09/17 Rx cloNIDine TAB [Catapres Tab] 0.1 mg PO TID tablet 02/20/17 03/09/17 Rx glipiZIDE [Glucotrol] 10 mg PO BIDAC tablet 02/20/17 03/09/17 Rx Allergies Allergy/AdvReac Type Severity Reaction Status Date / Time peanut Allergy Severe HIVES Verified 01/30/17 13:09 PEANUT BUTTER Allergy Severe ANAPHYLAXIS Uncoded 01/28/17 19:42 Medical,Surgical,& Family Hx - Medical History Cardio: History of: CAD, Hypertension, [place] (2007/2008), Cardiovascular Problems Psychological: No history of: Behavior Problems Neurology: No history of: Seizures HEENT: History of: Ear Problem (GLASSES), Eye Problem, Dental Problems Endocrine: History of: Diabetes Mellitus (IDDM), Diabetes Mellitus (NIDDM) Respiratory: No history of: Respiratory Problems (FLU VAC- YES; PNEU VAC- YES.) Renal: History of: Dialysis (MWF), Renal Failure Genitourinary: History of: Kidney Stones Gastrointestinal: History of: Diverticulitis/ Diverticulosis, GERD, Gastrointestinal Bleed, Polyps, GI Problems (GI bleeding) Musculoskeletal: History of: Amputation (right BKA) Hematology: History of: Anemia Other: History of: Anesthesia Reactions (NAUSEA AND VOMITING) - Surgical History Cardiac Surgeries: Sugical HX of: Cardiac Surgery (CABG 2008) Thoracic Surgeries: Patient denies;: Organ Transplant, Lobectomy Neurologic Surgeries: Patient denies: Neurologic Surgery HEENT Surgeries: Surgical HX of: Eye Surgery (CATARACTS) Patient denies: Tonsilectomy & Adenoidectomy Abdominal Surgeries: Surgical HX of: Cholecystectomy, Colonoscopy, EGD Reproductive Surgeries: Surgical HX of;: Hysterectomy, Tubal Ligation Patient denies;: Gynecologic Surgery Orthopedic Surgeries: Surgical HX of;: Implanted Devices (fistula rt upper arm, old graft in left arm) - Family History Family History: Reports;: Family Diabetes (PARENTS), Family Heart Disease, Family Hypertension, Family Stroke (MOM) - Social History Smoking Status: Never smoker Frequency of Alcohol Use: None Type of Drug Use: None 12 point system: reviewed and no additional remarkable complaints except as stated Exam - Constitutional Vitals: Period Temp Pulse Resp BP Sys/Durant Pulse Ox Last 24 Hr 98.3 F-98.3 F 68-89 17-20 106-158/45-85 95-100 General appearance: over weight - Head Head exam: Present: normal inspection - Eye Eye exam: Present: EOMI Pupils: Present: LOUIS - ENT ENT exam: Present: normal exam - Neck Neck exam: Present: normal inspection - Respiratory Respiratory exam: Present: clear to auscultation bilaterally - Cardiovascular Cardiovascular exam: Present: regular rate and rhythm - GI/Abdominal GI/Abdominal exam: Present: normal bowel sounds - Extremities Exam Extremities exam: Present: normal inspection - Back Exam Back exam: Present: normal inspection - Neurological Exam Neurological exam: Present: alert - Psychiatric Psychiatric exam: Present: normal affect - Skin Skin exam: Present: normal color Results - Labs CBC & BMP: 03/09/17 00:48 03/09/17 00:48
--- NOTE | 2017-03-09 04:19 | EKG Report ---
Stationary ECG Study [facility] ER Test Date: 03/09/2017 12:59:18 AM Pat Name: MERCEDES SOTO Department: Room: 107 Gender: F Funds Development Director: JHON : 1950 Requested by: Chapo Aguayo Order Number: [id number] Haroldo MD: INDIA STEELE Intervals [place] Rate: 63 P: 71 AR: 201 QRS: 72 QRSD: 93 T: 100 QT: 467 QTc: 474 Interpretive Statements SINUS RHYTHM PROLONGED QT INTERVAL Electronically Signed On 03-09-17 07:01:27 CDT by INDIA STEELE [email or web address]
[2017-03-09 07:01] LABS: Hematocrit 19.6 VOL% (35.7-47.0)
[2017-03-09 07:05] LABS: Hemoglobin 6.1 GM/DL (12.0-16.0)
[2017-03-09] MEDS: INSULIN REGULAR 100 UNIT/ML SUBCUT SCH ×4 (08:28→21:11)
--- NOTE | 2017-03-09 08:51 | Nephrology Consult Note ---
History of Present Illness Chief complaint: ESRD, GI bleed History of present illness: Ms. Carrillo is a 66 year old female with a history of recurrent GI bleeding. She dialyzed Thursday and. She began with significant GI bleeding yesterday from her rectum and presented to the emergency room. She has been hemodynamically stable and is monitored in the intensive care unit currently. Physical exam she is in no distress exam of her neck without jugular venous distention heart without rub or gallop no peripheral edema. She has had extensive GI workup in the past with her last admission she underwent arteriography after who was felt to be a blush in the right colon on CT angiogram. That could not be confirmed and no embolization was done. Impression GI bleed #2 end-stage renal disease Plan we will support with hemodialysis today and transfuse as necessary. Home Medications Medication Instructions Recorded Confirmed Type Insulin Glargine [Lantus] 10 unit SUBCUT BEDTIME 06/06/15 03/09/17 History Metoclopramide HCl 5 mg PO QID PRN 11/30/16 03/09/17 History Pantoprazole Tab [Protonix Tab] 40 mg PO BID 12/30/16 03/09/17 History Pro Renal D 1 tablet PO DAILY 01/28/17 03/09/17 History Carvedilol [Coreg] 6.25 mg PO BID tablet 02/20/17 03/09/17 Rx Cinacalcet [Sensipar] 60 mg PO BID tablet 02/20/17 03/09/17 Rx Doxazosin [Cardura] 2 mg PO BID tablet 02/20/17 03/09/17 Rx Losartan [Cozaar] 100 mg PO DAILY tablet 02/20/17 03/09/17 Rx cloNIDine TAB [Catapres Tab] 0.1 mg PO TID tablet 02/20/17 03/09/17 Rx glipiZIDE [Glucotrol] 10 mg PO BIDAC tablet 02/20/17 03/09/17 Rx Allergies Allergy/AdvReac Type Severity Reaction Status Date / Time peanut Allergy Severe HIVES Verified 01/30/17 13:09 PEANUT BUTTER Allergy Severe ANAPHYLAXIS Uncoded 01/28/17 19:42 Medical,Surgical,& Family Hx - Medical History Cardio: History of: CAD, Hypertension, [place] (2007/2008), Cardiovascular Problems Psychological: No history of: Behavior Problems Neurology: No history of: Seizures HEENT: History of: Ear Problem (GLASSES), Eye Problem, Dental Problems Endocrine: History of: Diabetes Mellitus (IDDM), Diabetes Mellitus (NIDDM) Respiratory: No history of: Respiratory Problems (FLU VAC- YES; PNEU VAC- YES.) Renal: History of: Dialysis (MWF), Renal Failure Genitourinary: History of: Kidney Stones Gastrointestinal: History of: Diverticulitis/ Diverticulosis, GERD, Gastrointestinal Bleed, Polyps, GI Problems (GI bleeding) Musculoskeletal: History of: Amputation (right BKA) Hematology: History of: Anemia Other: History of: Anesthesia Reactions (NAUSEA AND VOMITING) - Surgical History Cardiac Surgeries: Sugical HX of: Cardiac Surgery (CABG 2008) Thoracic Surgeries: Patient denies;: Organ Transplant, Lobectomy Neurologic Surgeries: Patient denies: Neurologic Surgery HEENT Surgeries: Surgical HX of: Eye Surgery (CATARACTS) Patient denies: Tonsilectomy & Adenoidectomy Abdominal Surgeries: Surgical HX of: Cholecystectomy, Colonoscopy, EGD Reproductive Surgeries: Surgical HX of;: Hysterectomy, Tubal Ligation Patient denies;: Gynecologic Surgery Orthopedic Surgeries: Surgical HX of;: Implanted Devices (fistula rt upper arm, old graft in left arm) - Family History Family History: Reports;: Family Diabetes (PARENTS), Family Heart Disease, Family Hypertension, Family Stroke (MOM) - Social History Smoking Status: Never smoker Frequency of Alcohol Use: None Type of Drug Use: None Review of Systems 12 point system: reviewed and no additional remarkable complaints except as stated Exam - Vital Signs Vital signs: Period Temp Pulse Resp BP Sys/Durant Pulse Ox Last 24 Hr 97.7 F-98.3 F 61-89 15-21 106-173/38-85 95-100 - General Appearance General appearance: well-developed, well-nourished, appears started age EENT: ATNC Neck: no JVD, no thyromegaly, no carotid bruit, supple Respiratory: no kyphosis, no scoliosis Cardiology: no murmurs, no rub, no gallops, no edema, regular rate, regular rhythm, normal S1, normal S2 Gastrointestinal: normoactive bowel sounds Integumentary: no rash, warm and dry Neurologic: no focal deficit, no asterixis, alert and oriented x3, reflexes 2+ and symmetric, gait normal, strength 5/5 Musculoskeletal: no deformities, no erythema, no cyanosis, no clubbing Psychiatric: mood/affect appropriate, cooperative Results - Labs CBC & BMP: 03/09/17 06:52 03/09/17 00:48 Assessment and Plan (1) End stage renal disease Problem details: HD tomorrow. Status: Chronic Current Visit: No (2) GI bleeding Problem details: possible intermittent bleeding in the right colon per the NM and CTA studies, history of intermittent GI bleeding in the past but negative Endo except for diverticulosis Status: Resolved Current Visit: No Specialty Discharge - Follow Up or Referrals - Speciality Discharge Instructions Nephrology Instructions: Dialysis today with transfusion.
[2017-03-09] MEDS ORDERED: SODIUM CHLORIDE 0.9% 250 ML IV PRN (08:52)
[2017-03-09] MEDS ORDERED: LOSARTAN 50 MG TABLET PO SCH (09:00)
[2017-03-09] MEDS: CINACALCET 30 MG TABLET PO SCH ×2 (09:17→21:10)
[2017-03-09] MEDS: DOXAZOSIN 4 MG TABLET PO SCH ×2 (09:17→21:09)
[2017-03-09] MEDS: CARVEDILOL 6.25 MG TABLET PO SCH ×2 (09:18→21:10)
[2017-03-09] MEDS: MULTIVITAMIN (BEROCCA) TABLET PO SCH (09:18)
--- NOTE | 2017-03-09 09:23 | Event Note ---
Patient seen and examined in follow-up after admission by Dr. Zavala earlier this morning. She is admitted with a lower GI bleed with bright red blood per rectum that was painless. She has had a 4 point drop in her hemoglobin and is going to be transfused 2 units of packed red blood cells with dialysis. GI and nephrology consults have been placed. The patient is pain-free and has stable vital signs. She reports no further bleeding since admission to the hospital 6 hours ago. She denies any abdominal pain or other complaints. She is resting comfortably in the intensive care unit. Vital Signs Temp Pulse Resp BP Pulse Ox 97.7 F 65 17 135/40 100 03/09/17 03:44 03/09/17 07:00 03/09/17 07:00 03/09/17 07:00 03/09/17 07:00 Intake and Output 03/08/17 03/09/17 03/09/17 23:59 07:59 15:59 Intake Total 1000 / 1000 Balance 1000 / 1000 Intake: IV 1000 / 1000 Ns 1,000 ml @ 999 mls/hr 1000 / 1000 IV 1X ED BOLUS STA Rx#: [id number] Oral 0 / 0 Other: Weight 63.548 kg Patient Weight 03/09/17 23:59 Weight 63.548 kg Abnormal lab results 03/09/17 03/09/17 03/09/17 Range/Units 00:48 00:48 06:42 RBC 2.17 L (3.8-5.5) MC/CUMM Hgb 6.5 L (12.0-16.0) GM/DL Hct 20.3 L (35.7-47.0) VOL% RDW 17.9 H (9.3-17.3) % Custer % (Auto) 15.1 H (1.7-12.7) % Lymph # (Auto) 1.0 L (1.4-4.0) 10*3/uL Anion Gap 17.5 H (5.0-15.0) MMOL/L BUN 76 H (7-18) MG/DL Creatinine 9.50 H (0.55-1.02) MG/DL Glucose 112 H (74-106) MG/DL Calculated Osmolality 309.8 H (273-304) MOS/KG Calcium 7.2 L (8.5-10.1) MG/DL ALT 11 L (13-56) U/L Alkaline Phosphatase 128 H (45-117) U/L Total Protein 5.5 L (6.4-8.3) G/DL Albumin 2.8 L (3.4-5.0) G/DL Albumin/Globulin Ratio 1.0 L (1.1-2.2) RATIO Crossmatch See Detail 03/09/17 Range/Units 06:52 RBC (3.8-5.5) MC/CUMM Hgb 6.1 L* (12.0-16.0) GM/DL Hct 19.6 L (35.7-47.0) VOL% RDW (9.3-17.3) % Custer % (Auto) (1.7-12.7) % Lymph # (Auto) (1.4-4.0) 10*3/uL Anion Gap (5.0-15.0) MMOL/L BUN (7-18) MG/DL Creatinine (0.55-1.02) MG/DL Glucose (74-106) MG/DL Calculated Osmolality (273-304) MOS/KG Calcium (8.5-10.1) MG/DL ALT (13-56) U/L Alkaline Phosphatase (45-117) U/L Total Protein (6.4-8.3) G/DL Albumin (3.4-5.0) G/DL Albumin/Globulin Ratio (1.1-2.2) RATIO Crossmatch Assessment and plan: Lower gastrointestinal bleeding End-stage renal disease on dialysis Acute blood loss anemia Plan: GI consult Transfuse 2 units of packed red blood cells Dialysis as scheduled for Thursday Nephrology consult Supportive care with blood pressure support and close monitoring for further lower gastrointestinal bleeding.
--- NOTE | 2017-03-09 10:10 | Gastrointestinal Consult Note ---
<Jacy Palumbo - Last Filed: 03/09/17 09:52> Assessment and Plan (1) GI bleeding Problem details: possible intermittent bleeding in the right colon per the NM and CTA studies, history of intermittent GI bleeding in the past but negative Endo except for diverticulosis Status: Resolved Assessment and plan: 03/09-Sudden onset of bright red rectal with abdominal cramping, with multiple episodes of bleeding in the past noted as below. Hgb on admission 6.1, to receive 2 units PRBC during dialysis today. Continue to monitor serial HH, transfuse as needed. If rectal bleeding reoccurs, obtain stat CT bleeding scan. Plan and addendum to follow by Dr Hough. Current Visit: No History of Present Illness Chief complaint: GI bleed History of present illness: Ms. Carrillo is a 66 year old female who was admitted to the hospital with onset of bright red rectal bleeding. Patient has a prior history of end-stage renal disease and dialyzed 3 days a week on Thursday, Thursday, Fridays. Patient states that she was in her usual state of health until Thursday night when she had a sudden onset of bright red rectal bleeding mixed in with her bowel movement. She states that she had approximately 5-6 episodes of bleeding mixed with bowel following onset and had some mild abdominal cramping but denies any pain. She states that this persisted until she presented to the emergency room for further evaluation. She was admitted early Thursday morning and states she has not had any further episodes since this time. She has not had a bowel movement as well since this time. She denies any nausea or vomiting at present time. She states this episode feels very similar to the one she had recently at the end of last month. She was admitted at the end of January with onset of GI bleeding and during that time she underwent nuclear med bleeding scan which showed possible intermittent bleeding in the right colon. This was followed up by an arteriogram however the source of bleeding was unable to be identified. Her most recent endoscopy studies were negative for capsule endoscopy in December of this year which showed rapid gastric emptying but normal small bowel transit time and no clear evidence of AVMs or bleeding source of small bowel, last colonoscopy in January 2016 with findings of colon polyps (sessile serated adenoma) , diverticulosis and EGD followed this with only findings of gastric polyps ( hyperplastic polyp without H. pylori seen). Patient is not on long-term anticoagulation. Home Medications Medication Instructions Recorded Confirmed Type Insulin Glargine [Lantus] 10 unit SUBCUT BEDTIME 06/06/15 03/09/17 History Metoclopramide HCl 5 mg PO QID PRN 11/30/16 03/09/17 History Pantoprazole Tab [Protonix Tab] 40 mg PO BID 12/30/16 03/09/17 History Pro Renal D 1 tablet PO DAILY 01/28/17 03/09/17 History Carvedilol [Coreg] 6.25 mg PO BID tablet 02/20/17 03/09/17 Rx Cinacalcet [Sensipar] 60 mg PO BID tablet 02/20/17 03/09/17 Rx Doxazosin [Cardura] 2 mg PO BID tablet 02/20/17 03/09/17 Rx Losartan [Cozaar] 100 mg PO DAILY tablet 02/20/17 03/09/17 Rx cloNIDine TAB [Catapres Tab] 0.1 mg PO TID tablet 02/20/17 03/09/17 Rx glipiZIDE [Glucotrol] 10 mg PO BIDAC tablet 02/20/17 03/09/17 Rx Allergies Allergy/AdvReac Type Severity Reaction Status Date / Time peanut Allergy Severe HIVES Verified 01/30/17 13:09 PEANUT BUTTER Allergy Severe ANAPHYLAXIS Uncoded 01/28/17 19:42 Medical,Surgical,& Family Hx - Medical History Cardio: History of: CAD, Hypertension, [place] (2007/2008), Cardiovascular Problems Psychological: No history of: Behavior Problems Neurology: No history of: Seizures HEENT: History of: Ear Problem (GLASSES), Eye Problem, Dental Problems Endocrine: History of: Diabetes Mellitus (IDDM), Diabetes Mellitus (NIDDM) Respiratory: No history of: Respiratory Problems (FLU VAC- YES; PNEU VAC- YES.) Renal: History of: Dialysis (MWF), Renal Failure Genitourinary: History of: Kidney Stones Gastrointestinal: History of: Diverticulitis/ Diverticulosis, GERD, Gastrointestinal Bleed, Polyps, GI Problems (GI bleeding) Musculoskeletal: History of: Amputation (right BKA) Hematology: History of: Anemia Other: History of: Anesthesia Reactions (NAUSEA AND VOMITING) - Surgical History Cardiac Surgeries: Sugical HX of: Cardiac Surgery (CABG 2008) Thoracic Surgeries: Patient denies;: Organ Transplant, Lobectomy Neurologic Surgeries: Patient denies: Neurologic Surgery HEENT Surgeries: Surgical HX of: Eye Surgery (CATARACTS) Patient denies: Tonsilectomy & Adenoidectomy Abdominal Surgeries: Surgical HX of: Cholecystectomy, Colonoscopy, EGD Reproductive Surgeries: Surgical HX of;: Hysterectomy, Tubal Ligation Patient denies;: Gynecologic Surgery Orthopedic Surgeries: Surgical HX of;: Implanted Devices (fistula rt upper arm, old graft in left arm) - Family History Family History: Reports;: Family Diabetes (PARENTS), Family Heart Disease, Family Hypertension, Family Stroke (MOM) - Social History Smoking Status: Never smoker Frequency of Alcohol Use: None Type of Drug Use: None 12 point system: reviewed and no additional remarkable complaints except as stated - Constitutional Constitutional: Present: as per HPI - EENT Eyes: Present: as per HPI Ears: Present: as per HPI Nose, mouth and throat: Present: as per HPI - Cardiovascular Cardiovascular: Present: as per HPI - Respiratory Respiratory: Present: as per HPI - Gastrointestinal Gastrointestinal: Present: as per HPI, hematochezia - Genitourinary Genitourinary: Present: as per HPI - Musculoskeletal Musculoskeletal: Present: as per HPI - Neurological Neurological: Present: as per HPI - Psychiatric Psychiatric: Present: as per HPI - Endocrine Endocrine: Present: as per HPI - Hematologic/Lymphatic Hematologic/Lymphatic: Present: as per HPI Exam - Constitutional Vitals: Period Temp Pulse Resp BP Sys/Durant Pulse Ox Last 24 Hr 97.7 F-98.3 F 60-89 15-21 106-173/38-85 95-100 General appearance: normal weight, no acute distress - Head Head exam: Present: normal inspection, normocephalic - Eye Eye exam: Present: other (lids and conjunctiva unremarkable). Absent: scleral icterus - ENT ENT exam: Present: normal exam, normal oropharynx - Neck Neck exam: Present: normal inspection - Respiratory Respiratory exam: Present: clear to auscultation bilaterally. Absent: rales, rhonchi, wheezes - Cardiovascular Cardiovascular exam: Present: regular rate and rhythm. Absent: diastolic murmur , JVD, systolic murmur - GI/Abdominal GI/Abdominal exam: Present: normal bowel sounds, soft. Absent: ascites, distended, mass, organomegaly, tenderness - Extremities Exam Extremities exam: Present: normal inspection, full ROM - Back Exam Back exam: Present: normal inspection - Neurological Exam Neurological exam: Present: alert, oriented X3 - Psychiatric Psychiatric exam: Present: normal affect, normal mood - Skin Skin exam: Present: normal color, warm, dry Results - Labs CBC & BMP: 03/09/17 06:52 03/09/17 00:48 Lab Results: I have reviewed the past 24 hour labs <Anish Hough - Last Filed: 03/09/17 10:22> History of Present Illness Chief complaint: 3030 History of present illness: Ms. Carrillo is a 66 year old female Exam - Constitutional Vitals: Period Temp Pulse Resp BP Sys/Durant Pulse Ox Last 24 Hr 97.7 F-98.3 F 60-89 15-21 106-173/38-85 95-100 Results - Labs CBC & BMP: 03/09/17 06:52 03/09/17 00:48
[2017-03-09] MEDS ORDERED: diphenhydrAMINE CAP 25 MG CAPSULE PO ONE (10:15)
[2017-03-09] MEDS: ACETAMINOPHEN 325 MG TABLET PO PRN (10:21)
--- NOTE | 2017-03-09 12:09 | Dialysis Note ---
Dialysis Note - Dialysis Note Ms. Carrillo is seen during hemodialysis. She is doing well and is sleeping. She had a transfusion and had some facial fullness and took Benadryl but is tolerating all of this well.
[2017-03-09] MEDS ORDERED: cloNIDine 0.1 MG TABLET PO PRN (12:11)
[2017-03-09] MEDS ORDERED: HEPARIN 10,000 UNIT/10 ML VIAL IV SCH (13:00)
[2017-03-09 13:01] LABS: Hematocrit 32.5 VOL% (35.7-47.0); Hemoglobin 10.8 GM/DL (12.0-16.0)
[2017-03-09 20:38] LABS: Hematocrit 30.8 VOL% (35.7-47.0); Hemoglobin 10.5 GM/DL (12.0-16.0)
[2017-03-10 01:06] LABS: Basophils % 0.5 % (0.0-0.8); Eosinophils # 0.2 10*3/uL (0.0-0.87); Eosinophils % 4.3 % (0.00-10.9); Hemoglobin 9.8 GM/DL (12.0-16.0); Immature Granulocytes % 1.2 %; Immature Granulocytes Absolute 0.05 #; Lymphocytes # 0.8 10*3/uL (1.4-4.0); Lymphocytes % 18.4 % (21.3-54.2); Mean Corpuscular HGB Conc 33.8 GM/DL (32-36); Mean Corpuscular Hemoglobin 30 PG (27-34); Mean Corpuscular Volume 89.8 FL (87-102); Mean Platelet Volume 9.8 FL (9.6-12.0); Monocytes # 0.6 10*3/uL (0.11-0.8); Monocytes % 13.6 % (1.7-12.7); Neutrophils # 2.6 10*3/uL (1.4-7.4); Platelet Count 149 T/CUMM (130-400); Red Blood Count 3.23 MC/CUMM (3.8-5.5); Red Cell Distribution Width 16.5 % (9.3-17.3); White Blood Count 4.2 T/CUMM (4-12)
[2017-03-10] MEDS ORDERED: PANTOPRAZOLE 40 MG VIAL IV SCH (03:00)
[2017-03-10] MEDS: INSULIN REGULAR 100 UNIT/ML SUBCUT SCH ×4 (07:24→20:27)
[2017-03-10] MEDS: CARVEDILOL 6.25 MG TABLET PO SCH ×2 (08:00→20:26)
[2017-03-10] MEDS: CINACALCET 30 MG TABLET PO SCH ×2 (08:00→20:26)
[2017-03-10] MEDS: DOXAZOSIN 4 MG TABLET PO SCH ×2 (08:00→20:26)
[2017-03-10] MEDS: MULTIVITAMIN (BEROCCA) TABLET PO SCH (08:00)
--- NOTE | 2017-03-10 08:31 | Nephrology Progress Note ---
Nephrology - PN: Subj Interval history: Ms. Carrillo is seen in follow-up of her end-stage renal disease and presentation with GI bleeding. She is undergoing a bleeding scan hopefully will be able to localize the site of her bleeding which is been a recurring problem. Her hematocrit stable at 30 after yesterday's transfusion. She is eating a clear liquid diet feeling fairly well. Plan is to dialyze her tomorrow. Exam (PN)-Nephrology - Vital Signs Vital signs: Period Temp Pulse Resp BP Sys/Durant Pulse Ox Last 24 Hr 97.0 F-98.3 F 55-69 10-20 120-211/7-65 98-100 - Lab 03/10/17 00:47 03/09/17 00:48 Most recent lab results Calcium 7.2 MG/DL (8.5-10.1) L 03/09/17 00:48 Magnesium 1.9 MG/DL (1.8-2.4) 03/09/17 00:48 Assessment and Plan (1) End stage renal disease Problem details: HD tomorrow. Status: Chronic Current Visit: No (2) GI bleeding Problem details: possible intermittent bleeding in the right colon per the NM and CTA studies, history of intermittent GI bleeding in the past but negative Endo except for diverticulosis Status: Resolved Current Visit: No
--- NOTE | 2017-03-10 08:59 | Hospitalist Progress Note ---
Assessment and Plan (1) Hypertension Status: Chronic Current Visit: No Qualifiers: Hypertension type: essential hypertension Qualified Code(s): I10 - Essential (primary) hypertension (2) End stage renal disease Problem details: HD tomorrow. Status: Chronic Current Visit: No (3) Lower gastrointestinal hemorrhage Status: Acute Assessment and plan: GI consult noted. No plans for endoscopy at this time. Will transfer to the floor and monitor H&H. Tagged red blood cell scan if bleeding persists. Current Visit: Yes (4) Melena Status: Acute Current Visit: Yes (5) Diabetes mellitus Status: Chronic Current Visit: Yes Qualifiers: Diabetes mellitus type: type 2 Chronic kidney disease stage: on chronic dialysis (6) Anemia Problem details: Extensive negative workup. Hgb now stable. Bleeding scan and upper and lower endoscopy negative for source but confirming blood in entire colon. Not sure if bleeding brisk enough for arteriogram to detect. Status: Acute Assessment and plan: Multifactorial related to chronic kidney disease and acute lower gastrointestinal bleeding. Status post transfusion of 2 units of packed red blood cells. Current Visit: Yes Qualifiers: Anemia type: due to chronic kidney disease Chronic kidney disease stage: on chronic dialysis Qualified Code(s): N18.6 - End stage renal disease; D63.1 - Anemia in chronic kidney disease; Z99.2 - Dependence on renal dialysis Hospitalist: Subjective Interval history: Patient seen and examined. No acute events overnight. Case discussed with nursing staff. Labs reviewed. Patient denies any further bleeding. No abdominal pain. Tolerating diet. Will transfer to the floor today. Exam - Constitutional Vitals: Period Temp Pulse Resp BP Sys/Durant Pulse Ox Last 24 Hr 97.0 F-98.3 F 55-69 10-20 120-211/7- 98-100 Exam: Constitutional System: No distress. No tremulousness. Head: Normocephalic, atraumatic. Ears, Nose and Throat System: No pain or tenderness. No epistaxis or discharge Eyes System: Pupils equal, round, and reactive. Extraocular muscles intact. Neck: Supple, without adenopathy, No jugular venous distention. Respiratory System: Chest clear to auscultation. Cardiovascular System: Heart with regular rate and rhythm. No murmur. GI System: Abdomen soft, nontender. Normo active bowel sounds present. Musculoskeletal System: limbs with no pedal edema. Full distal pulses. Neurological System: No discernable sensory deficit. No aphasia Psychiatric System: Conversation is rational Results - Labs CBC & BMP: 03/10/17 00:47 03/09/17 00:48 Lab Results: I have reviewed the past 24 hour labs
--- NOTE | 2017-03-10 10:32 | Gastrointestinal Progress Note ---
<Jacy Palumbo Sherrill - Last Filed: 03/10/17 10:28> Assessment and Plan (1) GI bleeding Problem details: possible intermittent bleeding in the right colon per the NM and CTA studies, history of intermittent GI bleeding in the past but negative Endo except for diverticulosis Status: Resolved Assessment and plan: 03/10-Hgb holding at 9.8, trended down slightly. Reported multiple bowel movements overnight. To be transferred to floor today. Plan and addendum to follow by Dr Hough. 03/09-Sudden onset of bright red rectal with abdominal cramping, with multiple episodes of bleeding in the past noted as below. Hgb on admission 6.1, to receive 2 units PRBC during dialysis today. Continue to monitor serial HH, transfuse as needed. If rectal bleeding reoccurs, obtain stat CT bleeding scan. Plan and addendum to follow by Dr Hough. Current Visit: No Gastroenterology - PN: Subj Interval history: CC: GI bleed Patient is seen awake and alert lying in bed. States she had a difficult night due to continued bowel movements. She states that she was told that she did have some bright red blood in this overnight. She does have some mild complaints of abdominal cramping with her bowel movements. Denies any nausea vomiting. Hemoglobin following 2 units of packed red blood cells on yesterday noted 10.5 trended down slightly now at 9.8. Abdomen is soft, nontender. She is having her diet advanced today. No CT bleeding scan ordered overnight if in fact pt had bleeding episodes as she states. She is to be transferred to floor today. ROS: Denies SOB or chest pain Exam (Progress Note) - Constitutional Vitals: Period Temp Pulse Resp BP Sys/Durant Pulse Ox Last 24 Hr 97.0 F-98.3 F 55-69 10-24 124-211/7 98-100 General appearance: normal weight, no acute distress - Head Head exam: Present: normal inspection, normocephalic - Eye Eye exam: Present: other (lids and conjunctiva unremarakble). Absent: scleral icterus - ENT ENT exam: Present: normal exam, normal oropharynx - Neck Neck exam: Present: normal inspection - Respiratory Respiratory exam: Present: clear to auscultation bilaterally. Absent: rales, rhonchi, wheezes - Cardiovascular Cardiovascular exam: Present: regular rate and rhythm. Absent: diastolic murmur , JVD, systolic murmur - GI/Abdominal GI/Abdominal exam: Present: normal bowel sounds, soft. Absent: ascites, distended, mass, organomegaly, tenderness - Extremities Exam Extremities exam: Present: normal inspection, full ROM - Back Exam Back exam: Present: normal inspection - Neurological Exam Neurological exam: Present: alert, oriented X3 - Psychiatric Psychiatric exam: Present: normal affect, normal mood - Skin Skin exam: Present: normal color, warm Results - Labs CBC & BMP: 03/10/17 00:47 03/09/17 00:48 Lab Results: I have reviewed the past 24 hour labs <Anish Hough - Last Filed: 03/10/17 10:56> Exam (Progress Note) - Constitutional Vitals: Period Temp Pulse Resp BP Sys/Durant Pulse Ox Last 24 Hr 97.0 F-98.3 F 55-69 10-24 124-211/7-68 98-100 Results - Labs CBC & BMP: 03/10/17 00:47 03/09/17 00:48
--- NOTE | 2017-03-10 13:37 | CT Report ---
CT angio abd/pel GI Bleed TECHNIQUE: Axial CT images of the Abdomen and Pelvis were obtained during the arterial phase of contrast injection. 3-D vascular MIPS reconstructions and multiplanar reformats were evaluated. Omnipaque 350, 100 cc was administered intravenously with no immediate complication. Dose reduction: This CT exam was performed using one or more of the following dose reduction techniques: Automated exposure control, automated adjustment of the mA and/or KV according to patient size, or use of iterative reconstruction technique. COMPARISON: Prior CT angiogram 02/17/2017 and arteriogram images 02/18/2017 CLINICAL HISTORY: Multiple recurrent episodes of bright red blood per rectum CTA FINDINGS: There is active extravasation noted within the right colon near the cecum likely at the ileocolic branches of the SMA. This is much more prominent on the current CTA as compared to prior. Delayed imaging demonstrates expected blush of contrast material throughout the right hemicolon, consistent with rather brisk hemorrhage. Multifocal atherosclerotic changes are otherwise noted throughout the aorta and iliac vasculature. No other focal areas of active hemorrhage are identified. Right thigh arteriovenous dialysis graft is noted in place and appears patent. NON--CTA FINDINGS: Very minimal posterior basilar atelectatic changes are noted bilaterally. Lung bases are otherwise clear. There is no pleural or pericardial effusion. ABDOMEN: Liver/Gallbladder: No abnormal enhancing lesions. Portal vein is patent. No biliary ductal dilatation. History of prior cholecystectomy. Spleen: No acute findings. Pancreas: No acute findings. Adrenals: Within normal limits in appearance. Kidneys: Both kidneys are atrophic but show relatively normal enhancement, compatible with chronic medical renal disease. There is no hydronephrosis. Bowel/mesentery: Small bowel is nondilated. There is no free fluid/air within the abdomen. Moderate stool throughout the colon. Again, there is prominent active extravasation within the right hemicolon, consistent with acute hemorrhage as per history. Retroperitoneum: No evidence of aortic aneurysm or significant retroperitoneal adenopathy. PELVIS: No free fluid. Bladder is unremarkable and poorly evaluated. Uterus and ovaries appear unremarkable for CT technique. There is no adenopathy in the pelvis. BONES: No acute or suspicious osseous abnormalities are identified. Multilevel degenerative changes are noted throughout the thoracic and lumbar spine. IMPRESSION: 1. Active bleeding/contrast extravasation within the right hemicolon near the cecum supply by the ileocolic branches. If the superior mesenteric artery is able to be catheterized, this could potentially be treated by endovascular means. If endovascular therapy fails, surgery will be required given the multiple recurrent episodes of bleeding. 2. No other significant change when compared to prior. Critical findings discussed with Dr. Hough via telephone at 1:30 PM on the day of the examination. 03/10/2017 1:27 PM PROCEDURE INTERPRETED AT [facility] DEPARTMENT OF RADIOLOGY Final Report Signed by: Shankar Rodríguez
--- NOTE | 2017-03-10 14:23 | Inventional Radiology Consult ---
Assessment and Plan - Time spent with patient Time spent with patient: Less than 30 minutes (1) Lower GI bleed Problem details: recurrent problem, active hemorrhage seen on CTA Status: Acute Assessment and plan: plan for catheter angiogram and embolization of the right ileo-colic branches if able to catheterize. If embolization fails, would suggest surgical treatment. Patient questions answered. Risks of procedure discussed. Patient had lunch so no plan for sedation and patient ok with that. Current Visit: Yes IR Consult - Data of Consult Patient: known to practice within the last 3 years Consult date: 03/10/17 Requesting Physician: Anish Hough - Consult Narrative Reason for consult: recurrent GI bleeding History of present illness: Lorena is a 66 year old F With repeat admission for recurrent right red blood per rectum. Patient was seen approximately 1 month ago with similar complaints. Colonoscopy during this admission was negative except for diverticular disease and small areas of angiodysplasia with no active bleeding visualized. Angiography during the prior admission did not localized the arterial supply to the questioned area of bleeding. The patient has minimal abdominal pain but states she just recently finished her lunch. There is no active blood per rectum during my interview today. No shortness of breath or chest pain. Review of systems is otherwise unchanged from recent admission. ASA level III - Home Medications and Allergies Home Medications: Home Medications Medication Instructions Recorded Confirmed Type Insulin Glargine [Lantus] 10 unit SUBCUT BEDTIME 06/06/15 03/09/17 History Metoclopramide HCl 5 mg PO QID PRN 11/30/16 03/09/17 History Pantoprazole Tab [Protonix Tab] 40 mg PO BID 12/30/16 03/09/17 History Pro Renal D 1 tablet PO DAILY 01/28/17 03/09/17 History Carvedilol [Coreg] 6.25 mg PO BID tablet 02/20/17 03/09/17 Rx Cinacalcet [Sensipar] 60 mg PO BID tablet 02/20/17 03/09/17 Rx Doxazosin [Cardura] 2 mg PO BID tablet 02/20/17 03/09/17 Rx Losartan [Cozaar] 100 mg PO DAILY tablet 02/20/17 03/09/17 Rx cloNIDine TAB [Catapres Tab] 0.1 mg PO TID tablet 02/20/17 03/09/17 Rx glipiZIDE [Glucotrol] 10 mg PO BIDAC tablet 02/20/17 03/09/17 Rx Allergies/Adverse Reactions: Allergies Allergy/AdvReac Type Severity Reaction Status Date / Time peanut Allergy Severe HIVES Verified 01/30/17 13:09 PEANUT BUTTER Allergy Severe ANAPHYLAXIS Uncoded 01/28/17 19:42 12 point system: reviewed and no additional remarkable complaints except as stated Medical,Surgical,& Family Hx - Medical History Cardio: History of: CAD, Hypertension, VT (2007/2008), Cardiovascular Problems Psychological: No history of: Behavior Problems Neurology: No history of: Seizures HEENT: History of: Ear Problem (GLASSES), Eye Problem, Dental Problems Endocrine: History of: Diabetes Mellitus (IDDM), Diabetes Mellitus (NIDDM) Respiratory: No history of: Respiratory Problems (FLU VAC- YES; PNEU VAC- YES.) Renal: History of: Dialysis (MWF), Renal Failure Genitourinary: History of: Kidney Stones Gastrointestinal: History of: Diverticulitis/ Diverticulosis, GERD, Gastrointestinal Bleed, Polyps, GI Problems (GI bleeding) Musculoskeletal: History of: Amputation (right BKA) Hematology: History of: Anemia Other: History of: Anesthesia Reactions (NAUSEA AND VOMITING) - Surgical History Cardiac Surgeries: Sugical HX of: Cardiac Surgery (CABG 2008) Thoracic Surgeries: Patient denies;: Organ Transplant, Lobectomy Neurologic Surgeries: Patient denies: Neurologic Surgery HEENT Surgeries: Surgical HX of: Eye Surgery (CATARACTS) Patient denies: Tonsilectomy & Adenoidectomy Abdominal Surgeries: Surgical HX of: Cholecystectomy, Colonoscopy, EGD Reproductive Surgeries: Surgical HX of;: Hysterectomy, Tubal Ligation Patient denies;: Gynecologic Surgery Orthopedic Surgeries: Surgical HX of;: Implanted Devices (fistula rt upper arm, old graft in left arm) - Family History Family History: Reports;: Family Diabetes (PARENTS), Family Heart Disease, Family Hypertension, Family Stroke (MOM) - Social History Smoking Status: Never smoker Frequency of Alcohol Use: None Type of Drug Use: None Exam - Labs CBC & BMP: 03/10/17 00:47 03/09/17 00:48 Lab Results: I have reviewed the past 24 hour labs Labs: INR 1.1 03/09/17 00:48 Image Studies: CTA GI bleeding scan - Constitutional Vitals: Period Temp Pulse Resp BP Sys/Durant Pulse Ox Last 24 Hr 97.0 F-98.7 F 55-78 10-24 124-211/ 98-100 General appearance: normal weight - Eye Eye exam: Present: EOMI, scleral icterus - Respiratory Respiratory exam: Present: clear to auscultation bilaterally - Cardiovascular Cardiovascular exam: Present: regular rate and rhythm - GI/Abdominal GI/Abdominal exam: Present: hyperactive bowel sounds. Absent: distended, firm, guarding - Neurological Exam Neurological exam: Present: alert, oriented X3 - Psychiatric Psychiatric exam: Present: normal affect, normal mood - Skin Skin exam: Present: normal color, dry
--- NOTE | 2017-03-10 16:24 | Post Interventional Procedure ---
Pre-op diagnosis: lower GI bleeding Post-op diagnosis: same Procedure: visceral angiography with embolization of the right ileocolic branch of the SMA Contrast: 125 mL Omni 350 Flouroscopy: 13.4 min Radiologist: Shankar Rodríguez Anesthesia: local Specimens: none sent Estimated blood loss: minimal Complications: none Condition: stable Description/Findings: In the right lower quadrant, ileocolic branches demonstrate a prominent vessel with brisk venous drainage suggestive of a large angiodysplastic lesion ( arteriovenous shunt) which likely corresponds to the area of active hemorrhage seen on prior CT angiography. The small distal branch vessels supplying this area were coil embolized. At the conclusion of the procedure, the abnormal vascular lesion is noted to be nearly completely thrombosed and only minimally opacified via small collaterals. As stated previously, this patient's severe hypertension likely worsens the likelihood of additional bleeding in the future. Patient tolerated the procedure well. Assessment and Plan - Time spent with patient Time spent with patient: Greater than 30 minutes (1) Lower GI bleed Problem details: recurrent problem, active hemorrhage seen on CTA Status: Acute Assessment and plan: plan for catheter angiogram and embolization of the right ileo-colic branches if able to catheterize. If embolization fails, would suggest surgical treatment. Patient questions answered. Risks of procedure discussed. Patient had lunch so no plan for sedation and patient ok with that. Current Visit: Yes
--- NOTE | 2017-03-10 17:04 | Interventional Radiology Rpt ---
IR angio mesenteric, IR angio each add vessel, IR embolization for hemorrhage Clinical Information: 66-year-old female with end-stage renal disease and multiple recurrent episodes of gastrointestinal bleeding. Most recent admission for recurrent gastrointestinal hemorrhage. Again, the endoscopy is negative. The repeat CT angiography demonstrates a prominent vessel with active extravasation in the cecum, as previously questioned. This is supplied via the ileocolic branches, which will be targeted for catheterization and embolization (with or without active extravasation demonstrated on today's angiography). All risks were discussed with the patient and questions answered to her satisfaction. Physician: Dr. Rodríguez Procedure: The patient was advised of the benefits, risks, and alternatives of the procedure and informed consent was obtained. A time out was performed with verification of the patient's name, MRN, site of procedure, and type of procedure to be performed. The patient was positioned in the supine position on the angiographic table. The site was prepped and draped in the usual sterile fashion. Local anesthesia only was used for the procedure. A home theatre technician radiograph reveals no relevant abnormality. 2% lidocaine was used for local anesthesia. The right common femoral artery was accessed with a microintroducer set utilizing ultrasound guidance. A permanent image capture of vascular access was retained for the patient's medical record. A short 0.018" wire was inserted and the needle was exchanged for a 4 Fr microintroducer sheath. The guidewire and dilator were removed and a 0.035" J-wire was advanced into the abdominal aorta. A 6 Fr sheath was placed over the wire. A 5F Omniflush catheter was inserted through the sheath and placed into the upper abdominal aorta. Aortography demonstrates a normal appearing abdominal aorta, common iliac, single bilateral renal, superior mesenteric, and celiac arteries. The right hepatic artery is not replaced to the superior mesenteric artery. The Omniflush catheter was then exchanged for a 5 Fijian C-2 catheter. Despite multiple attempts, the superior mesenteric artery cannot be directly catheterized. Therefore, the C2 catheter was exchanged for a Lawanda catheter. The superior mesenteric artery was catheterized with the Conteh catheter. Angiogram via the 5 Fijian diagnostic catheter demonstrates the superior mesenteric artery branches to the bowel with the prominent right lower quadrant ileocolic branch visualized. There is an area of prominent contrast staining within the cecum and an early prominent draining vein likely representing a vascular malformation or prominent angiodysplastic lesion. This is in the targeted location for the active hemorrhage seen on prior CT angiography. A 2.8 Fr Progreat microcatheter was then inserted through the diagnostic catheter. Microcatheter was utilized to subselectively catheterize the ileocolic branch of the superior mesenteric artery. Repeat arteriogram demonstrates direct supply to the area of angiodysplasia, again with the early draining vein noted. This does not demonstrate significant active hemorrhage at this time but is the targeted lesion seen with active hemorrhage on the prior CT angiogram. The microcatheter was then further advanced and subselective catheterization of the lateral branch of the ileocolic branch of the SMA was performed. Repeat arteriogram demonstrates similar findings. Given the findings, collateralization was performed. A total of 12 coils were utilized to finally stopped the direct flow to the angiodysplastic lesion. A final arteriogram demonstrates multiple small collateral vessels supplying the adjacent colonic mucosa. The microcatheter was removed without difficulty. Final diagnostic angiogram was performed via the Lawanda catheter in the superior mesenteric artery. Extensive collateralization is noted with near complete cessation of flow through the targeted angiodysplastic lesion. Small collateral vessels are now visible but the brisk draining vein is no longer visible, likely compatible with thrombosis. Therefore, no additional intervention is warranted at this time. The Lawanda catheter was removed over a wire. Brief right common iliac arteriogram was performed via the right common femoral artery sheath. Access is adequate for active closure. Angio-Seal was utilized to close the puncture site without difficulty. Sterile dressing was applied. The patient tolerated the procedure well and was returned to the PRU in stable condition. EBL: < 5 mL. Complications: None. Fluoroscopy time: 13.4 minutes Total number of images for the procedure: 806 Conclusion: 1. Successful distal coil emobolization of the ileocolic branch of the SMA, which was the primary supply to the actively bleeding angiodysplastic lesion seen on prior CT angiography. 2. Angio-Seal closure device placed at the right common femoral artery puncture. PROCEDURE INTERPRETED AT [facility] DEPARTMENT OF RADIOLOGY Final Report Signed by: Shankar Rodríguez
[2017-03-10] MEDS: glipiZIDE 10 MG TABLET PO SCH (18:02)
[2017-03-10] MEDS: cloNIDine 0.1 MG TABLET PO SCH ×2 (18:02→20:26)
[2017-03-10] MEDS: ACETAMINOPHEN 325 MG TABLET PO PRN (19:42)
[2017-03-10] MEDS: INSULIN GLARGINE 100 UNIT/ML SUBCUT SCH (20:27)
[2017-03-10] MEDS: PANTOPRAZOLE 40 MG TABLET PO SCH (20:27)
[2017-03-11 00:59] LABS: Hematocrit 28.7 VOL% (35.7-47.0); Hemoglobin 9.6 GM/DL (12.0-16.0)
[2017-03-11 06:44] LABS: Hematocrit 29.6 VOL% (35.7-47.0)
[2017-03-11] MEDS: CINACALCET 30 MG TABLET PO SCH ×2 (08:55→21:48)
[2017-03-11] MEDS: cloNIDine 0.1 MG TABLET PO SCH ×3 (08:55→21:48)
[2017-03-11] MEDS: glipiZIDE 10 MG TABLET PO SCH ×2 (08:56→17:19)
[2017-03-11] MEDS: DOXAZOSIN 4 MG TABLET PO SCH ×2 (08:56→21:47)
[2017-03-11] MEDS: CARVEDILOL 6.25 MG TABLET PO SCH ×2 (08:56→21:48)
[2017-03-11] MEDS: PANTOPRAZOLE 40 MG TABLET PO SCH ×2 (08:56→21:48)
[2017-03-11] MEDS: ACETAMINOPHEN 325 MG TABLET PO PRN (08:56)
[2017-03-11] MEDS: MULTIVITAMIN (BEROCCA) TABLET PO SCH (08:56)
[2017-03-11] MEDS: INSULIN REGULAR 100 UNIT/ML SUBCUT SCH ×4 (08:56→21:52)
--- NOTE | 2017-03-11 10:06 | Gastrointestinal Progress Note ---
<Jacy Palumbo Sherrill - Last Filed: 03/11/17 09:04> Assessment and Plan (1) GI bleeding Problem details: possible intermittent bleeding in the right colon per the NM and CTA studies, history of intermittent GI bleeding in the past but negative Endo except for diverticulosis Status: Resolved Assessment and plan: 03/11-hemoglobin 9.6. No further bleeding. Findings noted below an angiogram with embolization. Continue to monitor her for further bleeding. Plan an addendum to follow Dr. Hough. 03/10-Hgb holding at 9.8, trended down slightly. Reported multiple bowel movements overnight. To be transferred to floor today. Plan and addendum to follow by Dr Hough. 03/09-Sudden onset of bright red rectal with abdominal cramping, with multiple episodes of bleeding in the past noted as below. Hgb on admission 6.1, to receive 2 units PRBC during dialysis today. Continue to monitor serial HH, transfuse as needed. If rectal bleeding reoccurs, obtain stat CT bleeding scan. Plan and addendum to follow by Dr Hough. Current Visit: No Gastroenterology - PN: Subj Interval history: CC: GI bleed Patient is seen awake and alert eating breakfast. States she had an uneventful night. She denies any further bleeding at this time. She is noted to have angiography on yesterday with embolization of the right ileocolic branch of the SMA. She is complaining of some mild tenderness in her right upper quadrant. Hemoglobin is holding at 9.6. Abdomen is soft, mild tenderness. ROS: Denies shortness of breath or chest pain. Exam (Progress Note) - Constitutional Vitals: Period Temp Pulse Resp BP Sys/Durant Pulse Ox Last 24 Hr 97.3 F-98.7 F 59-78 14-19 116-215/47-92 98-100 General appearance: normal weight, no acute distress - Head Head exam: Present: normal inspection, normocephalic - Eye Eye exam: Present: other (Lids objective unremarkable). Absent: scleral icterus - ENT ENT exam: Present: normal exam, normal oropharynx - Neck Neck exam: Present: normal inspection - Respiratory Respiratory exam: Present: clear to auscultation bilaterally. Absent: rales, rhonchi, wheezes - Cardiovascular Cardiovascular exam: Present: regular rate and rhythm. Absent: diastolic murmur , JVD, systolic murmur - GI/Abdominal GI/Abdominal exam: Present: normal bowel sounds, soft. Absent: ascites, distended, mass, organomegaly, tenderness - Extremities Exam Extremities exam: Present: normal inspection, full ROM - Back Exam Back exam: Present: normal inspection - Neurological Exam Neurological exam: Present: alert, oriented X3 - Psychiatric Psychiatric exam: Present: normal affect, normal mood - Skin Skin exam: Present: normal color, warm, dry Results - Labs CBC & BMP: 03/11/17 06:09 03/09/17 00:48 Lab Results: I have reviewed the past 24 hour labs <Anish Hough - Last Filed: 03/11/17 18:07> Exam (Progress Note) - Constitutional Vitals: Period Temp Pulse Resp BP Sys/Durant Pulse Ox Last 24 Hr 97.3 F-98.2 F 59-64 16-18 116-136/47-59 97-100 Results - Labs CBC & BMP: 03/11/17 06:09 03/09/17 00:48
--- NOTE | 2017-03-11 13:05 | Dialysis Note ---
Dialysis Note - Dialysis Note Ms. Carrillo is seen during dialysis and she is doing well tolerating the dialysis. She is having some nonspecific abdominal discomfort post her embolization of an apparent AV fistula in the right colon yesterday. She has a quiet abdomen and is not tender. Overall she is stable. Our plan is to continue dialysis support
--- NOTE | 2017-03-11 14:17 | Hospitalist Progress Note ---
Assessment and Plan (1) End stage renal disease Problem details: HD tomorrow. Status: Chronic Assessment and plan: Continue with HD Current Visit: No (2) Hypertension Status: Chronic Assessment and plan: stable Current Visit: No (3) GI bleeding Problem details: No source indentified. Status: Acute Assessment and plan: s/p visceral angiography with embolization of the right ileocolic branch of the SMA. Plan Follow GI's recommendations monitor H/H Current Visit: No Qualifiers: GI bleed type/associated pathology: anorectal hemorrhage Qualified Code(s) : K62.5 - Hemorrhage of anus and rectum (4) Diabetes mellitus Status: Chronic Assessment and plan: stable on current regime Follow HbA1c Current Visit: No (5) Anemia Problem details: Extensive negative workup. Hgb now stable. Bleeding scan and upper and lower endoscopy negative for source but confirming blood in entire colon. Not sure if bleeding brisk enough for arteriogram to detect. Status: Acute Assessment and plan: Status post transfusion of 2 units of packed red blood cells. Follow H/H Current Visit: Yes Qualifiers: Anemia type: due to chronic kidney disease Chronic kidney disease stage: on chronic dialysis Qualified Code(s): N18.6 - End stage renal disease; D63.1 - Anemia in chronic kidney disease; Z99.2 - Dependence on renal dialysis Hospitalist: Subjective Interval history: Patient is a 66yr old who had a visceral angiography with embolization of the right ileocolic branch of the SMA yesterday. She was seen this am during dialysis and states some mild tenderness in her upper right quadrant. Exam - Constitutional Vitals: Period Temp Pulse Resp BP Sys/Durant Pulse Ox Last 24 Hr 97.3 F-97.9 F 59-65 14-19 116-215/47-92 99-100 General appearance: no acute distress - Head Head exam: Present: normal inspection - Respiratory Respiratory exam: Present: clear to auscultation bilaterally - GI/Abdominal GI/Abdominal exam: Present: tenderness (mild) - Extremities Exam Extremities exam: Present: normal inspection, other (right BKA) - Back Exam Back exam: Present: normal inspection Results - Labs CBC & BMP: 03/11/17 06:09 03/09/17 00:48 Lab Results: I have reviewed the past 24 hour labs
[2017-03-11] MEDS: INSULIN GLARGINE 100 UNIT/ML SUBCUT SCH (21:52)
[2017-03-12 06:23] LABS: Basophils % 0.3 % (0.0-0.8); Eosinophils # 0.3 10*3/uL (0.0-0.87); Eosinophils % 4.7 % (0.00-10.9); Hematocrit 30.5 VOL% (35.7-47.0); Hemoglobin 10.3 GM/DL (12.0-16.0); Immature Granulocytes % 0.4 %; Immature Granulocytes Absolute 0.03 #; Lymphocytes # 0.8 10*3/uL (1.4-4.0); Lymphocytes % 10.9 % (21.3-54.2); Mean Corpuscular HGB Conc 33.8 GM/DL (32-36); Mean Corpuscular Hemoglobin 30 PG (27-34); Mean Corpuscular Volume 88.9 FL (87-102); Mean Platelet Volume 9.8 FL (9.6-12.0); Monocytes # 0.9 10*3/uL (0.11-0.8); Monocytes % 12.7 % (1.7-12.7); Platelet Count 146 T/CUMM (130-400); Red Blood Count 3.43 MC/CUMM (3.8-5.5); Red Cell Distribution Width 16.6 % (9.3-17.3)
[2017-03-12 06:58] LABS: Calcium 6.9 MG/DL (8.5-10.1); Osmolality,Calculated 265.4 MOS/KG (273-304); Potassium 4.5 MMOL/L (3.5-5.1)
--- NOTE | 2017-03-12 08:32 | Gastrointestinal Progress Note ---
<Jacy Palumbo Sherrill - Last Filed: 03/12/17 08:29> Assessment and Plan (1) GI bleeding Problem details: possible intermittent bleeding in the right colon per the NM and CTA studies, history of intermittent GI bleeding in the past but negative Endo except for diverticulosis Status: Resolved Assessment and plan: 03/12-Recheck HH this morning. No overt bleeding. If stable, can be discharged from GI standpoint. Plan and addendum to follow by Dr Hough. 03/11-hemoglobin 9.6. No further bleeding. Findings noted below an angiogram with embolization. Continue to monitor her for further bleeding. Plan an addendum to follow Dr. Hough. 03/10-Hgb holding at 9.8, trended down slightly. Reported multiple bowel movements overnight. To be transferred to floor today. Plan and addendum to follow by Dr Hough. 03/09-Sudden onset of bright red rectal with abdominal cramping, with multiple episodes of bleeding in the past noted as below. Hgb on admission 6.1, to receive 2 units PRBC during dialysis today. Continue to monitor serial HH, transfuse as needed. If rectal bleeding reoccurs, obtain stat CT bleeding scan. Plan and addendum to follow by Dr Hough. Gastroenterology - PN: Subj Interval history: CC: GI bleeding Patient is seen awake and alert sitting up in bed eating breakfast. States she had an uneventful night. She states that she had a bowel movement yesterday during dialysis which was dark in color but no overt bleeding. She is complaining of some mild abdominal soreness however feels like this is related to her illness in general. No repeat labs noted today,will recheck H&H. Appetite is improving at this time. ROS: Denies SOB or chest pain Exam (Progress Note) - Constitutional Vitals: Period Temp Pulse Resp BP Sys/Durant Pulse Ox Last 24 Hr 97.9 F-99.0 F 63-73 16-20 116-152/41-58 97-100 General appearance: normal weight, no acute distress - Head Head exam: Present: normal inspection, normocephalic - Eye Eye exam: Present: other (lids and conjunctiva unremarkable). Absent: scleral icterus - ENT ENT exam: Present: normal exam, normal oropharynx - Neck Neck exam: Present: normal inspection - Respiratory Respiratory exam: Present: clear to auscultation bilaterally. Absent: rales, rhonchi, wheezes - Cardiovascular Cardiovascular exam: Present: regular rate and rhythm. Absent: diastolic murmur , JVD, systolic murmur - GI/Abdominal GI/Abdominal exam: Present: normal bowel sounds, soft. Absent: ascites, distended, mass, organomegaly, tenderness - Extremities Exam Extremities exam: Present: normal inspection, full ROM - Back Exam Back exam: Present: normal inspection - Neurological Exam Neurological exam: Present: alert, oriented X3 - Psychiatric Psychiatric exam: Present: normal affect, normal mood - Skin Skin exam: Present: normal color, warm, dry Results - Labs CBC & BMP: 03/12/17 06:09 03/12/17 06:09 Lab Results: I have reviewed the past 24 hour labs <Anish Hough - Last Filed: 03/12/17 17:31> Exam (Progress Note) - Constitutional Vitals: Period Temp Pulse Resp BP Sys/Durant Pulse Ox Last 24 Hr 97.9 F-99.0 F 60-73 17-20 127-154/41-57 98-100 Results - Labs CBC & BMP: 03/12/17 06:09 03/12/17 06:09
--- NOTE | 2017-03-12 08:39 | Nephrology Progress Note ---
Nephrology - PN: Subj Interval history: Ms. Carrillo is seen in follow-up for end-stage renal disease. Her hematocrit is stable and she has had no drop in blood pressure since embolization of the bleeding lesion in the right colon. Will plan dialysis for tomorrow. I think she will soon be able to go home with this hemodynamic stability Exam (PN)-Nephrology - Vital Signs Vital signs: Period Temp Pulse Resp BP Sys/Durant Pulse Ox Last 24 Hr 97.9 F-99.0 F 63-73 16-20 116-152/41-58 97-100 - Lab 03/12/17 06:09 03/12/17 06:09 Most recent lab results Calcium 6.9 MG/DL (8.5-10.1) L 03/12/17 06:09 Magnesium 1.9 MG/DL (1.8-2.4) 03/09/17 00:48 Assessment and Plan (1) End stage renal disease Problem details: HD tomorrow. Status: Chronic Current Visit: No (2) GI bleeding Problem details: possible intermittent bleeding in the right colon per the NM and CTA studies, history of intermittent GI bleeding in the past but negative Endo except for diverticulosis Status: Resolved Current Visit: No
[2017-03-12] MEDS: glipiZIDE 10 MG TABLET PO SCH (09:01)
[2017-03-12] MEDS: CINACALCET 30 MG TABLET PO SCH (09:02)
[2017-03-12] MEDS: DOXAZOSIN 4 MG TABLET PO SCH (09:02)
[2017-03-12] MEDS: CARVEDILOL 6.25 MG TABLET PO SCH (09:02)
[2017-03-12] MEDS: PANTOPRAZOLE 40 MG TABLET PO SCH (09:02)
[2017-03-12] MEDS: cloNIDine 0.1 MG TABLET PO SCH ×2 (09:02→16:13)
[2017-03-12] MEDS: MULTIVITAMIN (BEROCCA) TABLET PO SCH (09:02)
[2017-03-12] MEDS: INSULIN REGULAR 100 UNIT/ML SUBCUT SCH ×2 (09:22→12:30)
--- NOTE | 2017-03-12 14:07 | Discharge Summary ---
Hospital Course - Hospital Course Hospital Course: Ms. Carrillo is a 66 year old female with past medical history significant for hypertension, end-stage renal disease on hemodialysis and diabetes who was in her normal state of health until 2 days ago. Patient reported that at that time she started noticing bright red blood per rectum when she has bowel movements. Symptomatically she does not have a significant list of complaints. Her H&H had dropped significantly. Gastroenterology was consulted. She required 2 units PRBC transfusion during HD. Patient underwent angiogram with emolization of the iliocolic branch of the SMA which was the primary supply to the actively bleeding angiodysplastic lesion seen on a previous CT. Her H/H has remained stable with overt signs of bleeding. She has now reached maximal benefit of inpatient stay and will be discharged home. - Time spent with patient Time with patient DS: Less than 30 minutes (25) Diagnosis - Discharge Diagnosis (1) Diabetes mellitus Status: Chronic (2) Hypertension Status: Chronic (3) ESRD on dialysis Status: Chronic (4) Lower gastrointestinal hemorrhage Status: Resolved (5) Melena Status: Resolved Discharge Plan - Discharge Data Disposition: Disch To Home/Self Care Condition at Discharge: Stable Discharge Diet: diabetic diet Activity: increase activity as tolerated Hygiene: no restrictions Weight Bearing at Discharge: weight bear as tolerated Contact your physician if you experience:: Shortness of breath, Bleeding - Discharge Medications Continue Insulin Glargine [Lantus] 10 unit SUBCUT BEDTIME Metoclopramide HCl 5 mg PO QID PRN PRN Reason: Indigestion Pro Renal D 1 tablet PO DAILY Carvedilol [Coreg] 6.25 mg PO BID tablet Cinacalcet [Sensipar] 60 mg PO BID tablet cloNIDine TAB [Catapres Tab] 0.1 mg PO TID tablet glipiZIDE [Glucotrol] 10 mg PO BIDAC tablet Pantoprazole Tab [Protonix Tab] 40 mg PO BID Doxazosin [Cardura] 2 mg PO BID tablet Discontinued Losartan [Cozaar] 100 mg PO DAILY tablet - Follow Up or Referral - Forms/Instructions Exam - Constitutional Vitals: Period Temp Pulse Resp BP Sys/Durant Pulse Ox Last 24 Hr 97.9 F-99.0 F 63-73 16-20 116-152/41-58 97-100 General appearance: normal weight - Head Head exam: Present: normocephalic, atraumatic - Eye Eye exam: Present: EOMI Pupils: Present: LOUIS - ENT ENT exam: Present: normal exam - Neck Neck exam: Present: normal inspection - Respiratory Respiratory exam: Present: clear to auscultation bilaterally - Cardiovascular Cardiovascular exam: Present: regular rate and rhythm - GI/Abdominal GI/Abdominal exam: Present: normal bowel sounds, soft. Absent: tenderness, rebound - Extremities Exam Extremities exam: Present: normal inspection - Back Exam Back exam: Present: normal inspection - Neurological Exam Neurological exam: Present: alert, oriented X3 - Psychiatric Psychiatric exam: Present: normal affect, normal mood - Skin Skin exam: Present: warm, intact Discharge Results Labs on day of discharge: Labs from last 24 hours 03/12/17 03/12/17 03/12/17 12:05 06:53 06:09 WBC RBC Hgb Hct MCV MCH MCHC RDW Plt Count MPV Neut % (Auto) Lymph % (Auto) Lyman % (Auto) Eos % (Auto) Baso % (Auto) Neut # (Auto) Lymph # (Auto) Lyman # (Auto) Eos # (Auto) Baso # (Auto) Immature Gran % Nucleated RBC % Immature Gran # Nucleated RBCs # Sodium 133 L Potassium 4.5 Chloride 98 Carbon Dioxide 26 Anion Gap 13.5 BUN 19 H Creatinine 4.70 H GFR Calculation 10 BUN/Creatinine Ratio 4.00 L Glucose 71 L POC Glucose 128 H 90 Hemoglobin A1c Calculated Osmolality 265.4 L Calcium 6.9 L 03/12/17 03/12/17 03/11/17 06:09 01:00 21:51 WBC 7.0 D RBC 3.43 L Hgb 10.3 L Hct 30.5 L MCV 88.9 MCH 30 MCHC 33.8 RDW 16.6 Plt Count 146 MPV 9.8 Neut % (Auto) 71.0 Lymph % (Auto) 10.9 L Lyman % (Auto) 12.7 Eos % (Auto) 4.7 Baso % (Auto) 0.3 Neut # (Auto) 5.0 Lymph # (Auto) 0.8 L Lyman # (Auto) 0.9 H Eos # (Auto) 0.3 Baso # (Auto) 0.0 Immature Gran % 0.4 Nucleated RBC % 0.0 Immature Gran # 0.03 Nucleated RBCs # 0.00 Sodium Potassium Chloride Carbon Dioxide Anion Gap BUN Creatinine GFR Calculation BUN/Creatinine Ratio Glucose POC Glucose 108 H 104 Hemoglobin A1c Calculated Osmolality Calcium 03/11/17 03/11/17 16:38 14:52 WBC RBC Hgb Hct MCV MCH MCHC RDW Plt Count MPV Neut % (Auto) Lymph % (Auto) Lyman % (Auto) Eos % (Auto) Baso % (Auto) Neut # (Auto) Lymph # (Auto) Lyman # (Auto) Eos # (Auto) Baso # (Auto) Immature Gran % Nucleated RBC % Immature Gran # Nucleated RBCs # Sodium Potassium Chloride Carbon Dioxide Anion Gap BUN Creatinine GFR Calculation BUN/Creatinine Ratio Glucose POC Glucose 120 H Hemoglobin A1c 5.4 Calculated Osmolality Calcium DS: Provider Date of admission: 03/09/17 02:59 Primary care physician: Austin García Jr., MD Attending physician on admission: Edilberto Carias MD Consults: 03/09/17 03:03 Consult to Physician [CONS] Routine Comment: Consulting Provider: Chapo Harp Consulting Provider Notified: Yes Consult to Specialist Group: Nephrology When should Consulting Provider be notified: In am Person Notified: barbara Date Notified: 03/09/17 Time Notified: 08:20 Consult to Physician [CONS] Routine Comment: GIB Consulting Provider: Anish Hough Consulting Provider Notified: Yes Consult to Specialist Group: Gastroenterology When should Consulting Provider be notified: In am Person Notified: barbara Date Notified: 03/09/17 Time Notified: 08:20 Discharging clinician: Armaan Pierre MD
[2017-03-12 15:51] VITALS: BP 154/51
== END 2017-03-12 15:40 | disposition home or self-care (01) | DRG 356 ==
LOC: EDUNIT# → EDSEX → EDBD → N.ED 00:27 → SUATTDRO 02:59 → N.EDINP 02:59 → N.ICU 03:26 → N.5E 03-10 11:18
PROVIDERS: ADMIT Internal Medicine; ATTEND Internal Medicine
PROC: IRAGMES (2017-03-10 14:50)

== ENCOUNTER 2017-04-13 13:15 | Inpatient (IN) ==
[2017-04-13 14:21] LABS: Basophils % 0.4 % (0.0-0.8); Eosinophils # 0.2 10*3/uL (0.0-0.87); Eosinophils % 3.8 % (0.00-10.9); Hematocrit 40.3 VOL% (35.7-47.0); Hemoglobin 13.1 GM/DL (12.0-16.0); Immature Granulocytes % 0.6 %; Immature Granulocytes Absolute 0.03 #; Lymphocytes # 0.7 10*3/uL (1.4-4.0); Lymphocytes % 14.3 % (21.3-54.2); Mean Corpuscular HGB Conc 32.5 GM/DL (32-36); Mean Corpuscular Hemoglobin 29 PG (27-34); Mean Platelet Volume 10.5 FL (9.6-12.0); Monocytes # 0.6 10*3/uL (0.11-0.8); Monocytes % 12.7 % (1.7-12.7); Neutrophils # 3.4 10*3/uL (1.4-7.4); Neutrophils % 68.2 % (38.7-73.9); Platelet Count 202 T/CUMM (130-400); Red Blood Count 4.48 MC/CUMM (3.8-5.5); Red Cell Distribution Width 15.4 % (9.3-17.3)
[2017-04-13 14:31] LABS: Partial Thromboplastin Time 33.1 SECS (0-40)
[2017-04-13] MEDS ORDERED: ONDANSETRON 4 MG/2 ML VIAL IV PRN ×2 (14:37→16:47)
[2017-04-13] MEDS ORDERED: PANTOPRAZOLE 40 MG VIAL IV STA (14:37)
--- NOTE | 2017-04-13 14:56 | Emergency Department Note ---
Iam Silver Brooke, am scribing for, and in the presence of, Andrés Dotson MD 14:44 . Nila Silver James D, MD, personally performed the services described in this documentation, ascribed by Cornelia Vitale in my presence, and it is both accurate and complete [id number] . Arrival - Arrival Chief Complaint: GI Bleed/Rectal Stated Complaint: more bleeding again ED Nursing Triage Note: Pt c/o bright red blood in her stool with abd pain started this am. Mode of Arrival: Wheelchair Limitations: No Limitations Source: Patient, RN Notes Reviewed Time Seen by Provider: 04/13/17 14:33 - History of Present Illness HPI Narrative: Patient is a 66 year old female who presents to the ED with c/o blood in her stool. Patient had a bowel movement this morning and there was "a little bit of blood" in the stool. She went to dialysis and after her treatment, she had another bowel movement and she says there was more blood. She describes the blood as bright red. She denies having any abdominal pain, shortness of breath, or lightheadedness. Patient has PMHx of HTN, CAD, MS, diabetes, kidney stones, diverticulitis, polyps, GERD, GI bleed, right BKA, renal failure, and anemia. Patient goes to dialysis on Thursday, Thursday, and Thursday. Her Patient Care Representative is Dr. García. She does not smoke or drink alcohol. Onset (ago): day(s) (1) Consistency: intermittent Severity: mild Allergies/Adverse Reactions: Allergies Allergy/AdvReac Type Severity Reaction Status Date / Time peanut Allergy Severe HIVES Verified 01/30/17 13:09 PEANUT BUTTER Allergy Severe ANAPHYLAXIS Uncoded 01/28/17 19:42 Home Medications: Home Medications Medication Instructions Recorded Confirmed Type Insulin Glargine [Lantus] 10 unit SUBCUT QOTHER DAY 06/06/15 04/13/17 History Metoclopramide HCl 5 mg PO QID PRN 11/30/16 04/13/17 History Pantoprazole Tab [Protonix Tab] 40 mg PO BID 12/30/16 04/13/17 History Pro Renal D 1 tablet PO DAILY 01/28/17 04/13/17 History Carvedilol [Coreg] 6.25 mg PO BID tablet 02/20/17 04/13/17 Rx cloNIDine TAB [Catapres Tab] 0.1 mg PO TID tablet 02/20/17 04/13/17 Rx Calcium Acetate [Phoslo] 1,334 mg PO BID 04/13/17 04/13/17 History Calcium Acetate [Phoslo] 2,001 mg PO TID W/MEALS 04/13/17 04/13/17 History Cinacalcet HCl [Sensipar] 60 mg PO BID 04/13/17 04/13/17 History Doxazosin [Cardura] 4 mg PO BID 04/13/17 04/13/17 History HydrOXYzine PAMOATE CAP [Vistaril 25 mg PO Q6H PRN 04/13/17 04/13/17 History Cap] Losartan Potassium [Cozaar] 100 mg PO DAILY 04/13/17 04/13/17 History glipiZIDE [Glucotrol] 10 mg PO BID 04/13/17 04/13/17 History Review of System - Review of System 12 point system: reviewed and no additional remarkable complaints except as stated - Review of System Constitutional: Absent: fever Respiratory: Absent: respiratory distress Gastrointestinal: Present: hematochezia. Absent: abdominal pain Skin: Absent: rash Medical,Surgical,& Family Hx - Medical History Cardio: History of: CAD, Hypertension, [place] (2007/2008), Cardiovascular Problems Psychological: No history of: Behavior Problems Neurology: No history of: Seizures HEENT: History of: Ear Problem (GLASSES), Eye Problem, Dental Problems Endocrine: History of: Diabetes Mellitus (IDDM), Diabetes Mellitus (NIDDM) Respiratory: No history of: Respiratory Problems (FLU VAC- YES; PNEU VAC- YES.) Renal: History of: Dialysis (MWF), Renal Failure Genitourinary: History of: Kidney Stones Gastrointestinal: History of: Diverticulitis/ Diverticulosis, GERD, Gastrointestinal Bleed, Polyps, GI Problems (GI bleeding) Musculoskeletal: History of: Amputation (right BKA) Hematology: History of: Anemia Other: History of: Anesthesia Reactions (NAUSEA AND VOMITING) - Surgical History Cardiac Surgeries: Sugical HX of: Cardiac Surgery (CABG 2008) Thoracic Surgeries: Patient denies;: Organ Transplant, Lobectomy Neurologic Surgeries: Patient denies: Neurologic Surgery HEENT Surgeries: Surgical HX of: Eye Surgery (CATARACTS) Patient denies: Tonsilectomy & Adenoidectomy Abdominal Surgeries: Surgical HX of: Cholecystectomy, Colonoscopy, EGD Reproductive Surgeries: Surgical HX of;: Hysterectomy, Tubal Ligation Patient denies;: Gynecologic Surgery Orthopedic Surgeries: Surgical HX of;: Implanted Devices (fistula rt upper arm, old graft in left arm) - Family History Family History: Reports;: Family Diabetes (PARENTS), Family Heart Disease, Family Hypertension, Family Stroke (MOM) - Social History Smoking Status: Never smoker Exam Vital Signs: Vital Signs Temperature 97.8 F 04/13/17 13:17 Pulse Rate 72 04/13/17 13:17 Respiratory Rate 16 04/13/17 13:17 Blood Pressure 205/52 04/13/17 13:17 O2 Sat by Pulse Oximetry 96 04/13/17 13:17 GENERAL: This is a well-nourished well-developed chronically ill-appearing black female in no apparent distress. VITAL SIGNS: Reviewed HEENT: Head is atraumatic and normocephalic. Pupils are equal round react to light. Extraocular movements are intact. Oropharynx is benign with moist mucous membranes. NECK: Neck is soft and supple without tenderness. There are no masses. There is no lymphadenopathy. LUNGS: Lungs are clear to auscultation. Chest rises symmetrically. There is no chest wall tenderness. Dialysis catheter is present in the left infraclavicular area. CV: Heart is regular rate and rhythm without murmurs rubs or gallops. ABDOMEN: Abdomen is soft, nontender to palpation. There are no abdominal abnormal masses palpated. There is no organomegaly. Bowel sounds are present and active. SKIN: Skin is warm and dry. No rash. EXTREMITIES: Patient has full range of motion without tenderness. There is no pedal edema. NEUROLOGIC: Awake alert and oriented 4. Cranial nerves II through XII are grossly intact. Motor is 5 over 5 in all extremities bilaterally. Course - Consultations Consultation #1: Discussed with hospitalist. Patient will be admitted to their service. Time: 16:07 Results - Labs CBC & BMP: 04/13/17 14:08 04/13/17 14:08 Lab Results: I have reviewed the patients labs Labs: Laboratory Tests 04/13/17 14:08 INR 1.0 - Diagnostic Findings Procedure: Abdominal x-ray: image reviewed by me, Chest x-ray: image reviewed by me Disposition Clinical Impression: End-stage renal disease on hemodialysis, Lower GI bleeding Case discussed with: patient
[2017-04-13 15:09] LABS: Alanine Aminotransferase 17 U/L (13-56); Albumin 3.3 G/DL (3.4-5.0); Alkaline Phosphatase 220 U/L (45-117); Aspartate Amino Transferase 24 U/L (0-37); Bilirubin,Total < 0.39 MG/DL (0.2-1.0); Blood Urea Nitrogen 20 MG/DL (7-18); Calcium 8.5 MG/DL (8.5-10.1); Glucose 159 MG/DL (74-106); Osmolality,Calculated 284.4 MOS/KG (273-304); Potassium 3.4 MMOL/L (3.5-5.1); Sodium 140 MMOL/L (136-145); Total Protein 8.1 G/DL (6.4-8.3)
[2017-04-13] MEDS ORDERED: PANTOPRAZOLE 40 MG VIAL IV ONE (15:40)
[2017-04-13] MEDS ORDERED: ONDANSETRON 4 MG/2 ML VIAL ONE (15:40)
--- NOTE | 2017-04-13 15:57 | XRay Report ---
History: GI bleeding Date: 04/13/2017 Study: Flat and decubitus abdomen Comparison exam: October 26, 2016 There is no evidence of pneumoperitoneum on the decubitus view. The bowel gas pattern is nonspecific without mickey mechanical obstruction or gross mass lesion. Surgical clips overlie the right upper abdomen and right inguinal area. Metallic embolization coils overlie the right lower quadrant. There is no aneurysm of the moderately calcified abdominal aorta. Impression: No definite acute process compared to the previous study. Interval placement of mesenteric embolization coils since the previous exam PROCEDURE INTERPRETED AT [facility] DEPARTMENT OF RADIOLOGY Final Report Signed by: Dr. Jayla French
[2017-04-13] MEDS ORDERED: MORPHINE 2 MG/1 ML SYRINGE IV PRN (16:47)
--- NOTE | 2017-04-13 16:48 | XRay Report ---
History: GI bleeding. History of hypertension, diabetes, end-stage renal disease Date: 04/13/2017 Study: Chest x-ray AP portable Comparison exam: November 30, 2016 A left upper extremity dialysis access catheter is well-positioned with its tip over the atriocaval junction level. There is continued cardiomegaly. The mediastinal contours are stable in this patient status post prior median sternotomy. The pulmonary vasculature is upper normal. There is no gross pleural effusion. There is no mickey pneumonia. There is mild to moderate thoracic spondylosis. Impression: Cardiomegaly and borderline pulmonary venous hypertension appearance. No mickey pneumonia or acute process otherwise PROCEDURE INTERPRETED AT [facility] DEPARTMENT OF RADIOLOGY Final Report Signed by: Dr. Jayla French
--- NOTE | 2017-04-13 17:14 | Hospitalist History & Physical ---
Assessment and Plan (1) End-stage renal disease on hemodialysis Status: Acute Assessment and plan: The patient complete the last hemodialysis treatment on earlier today. We will consult nephrology to evaluate and assist during the clinical encounter. Nephrology to manage hemodialysis. Current Visit: Yes (2) Lower GI bleeding Status: Acute Assessment and plan: Hemoglobin and hematocrit is stable at 13.1/40.3. Patient reports multiple episodes of GI bleed in the past. A gastroenterology consultation has been requested. We will start PPIs and monitor closely. We will repeat H&H in a.m. Current Visit: Yes (3) Anemia Problem details: Extensive negative workup. Hgb now stable. Bleeding scan and upper and lower endoscopy negative for source but confirming blood in entire colon. Not sure if bleeding brisk enough for arteriogram to detect. Status: Acute Assessment and plan: Hemoglobin and hematocrit stable at 13.1/40.3. The patient is chronically anemic due to her current renal status. We will monitor closely. We will type and screen. Patient reports that she has had multiple GI bleeds in the past. A gastroenterology consultation has been requested. Current Visit: No Qualifiers: Anemia type: due to chronic kidney disease Chronic kidney disease stage: on chronic dialysis Qualified Code(s): N18.6 - End stage renal disease; D63.1 - Anemia in chronic kidney disease; Z99.2 - Dependence on renal dialysis History of Present Illness Chief complaint: Rectal bleeding History of present illness: This is a chronically ill 66-year-old female that presented to the ED at [facility] this afternoon for the evaluation of bloody stools. Patient has a very long and complex medical history significant for hypertension, coronary artery disease, myocardial infarction, diabetes, renal calculi, gastroesophageal reflux disease, diverticulitis, GI bleed, right below the knee amputation, end-stage renal disease, and anemia. Patient has surgical history significant for coronary artery bypass graft (2009), cataracts removal, cholecystectomy, colonoscopy, EGD, hysterectomy, tubal ligation, creation of multiple AV fistulas to the right arm and left arm). Patient reported the onset of the above symptoms on this morning. The patient reported that she had a stool prior to hemodialysis and that there was a "little bit of blood" in the stool. The patient proceeded to present to the hemodialysis and shortly after her hemodialysis treatment, she reported that she had another bowel movement and that there was a large amount of blood at this time. Patient describes the blood as "bright red "in color and "large" in quantity; however denied abdominal pain, shortness of breath, or syncope. She was advised by the hemodialysis staff to present to the ED for further evaluation. The patient was assessed at the time of ED presentation. Patient was noted to be hypertensive with a blood pressure noted at 170/41. Labs were obtained; complete blood count reported white blood cell count of 5.0, hemoglobin 13.1, hematocrit 40.3, and platelet count of 202. Coagulation panel reported INR 1.0 , PT 11.0, PTT 33.1. Complete metabolic profile reported sodium at 140, potassium 3.4, chloride 98, carbon dioxide 35, BUN 20, creatinine 5.30, glucose 159, magnesium 2.0, calcium 8.5, alkaline phosphatase 220, albumin 3.3. Abdominal x-ray was essentially unremarkable for any acute processes; however interval placement of a mesenteric embolization coil was noted. Chest x-ray reported cardiomegaly and borderline pulmonary venous hypertension; however no mickey pneumonia or acute process noted otherwise. After brief discussion with both Dr. Dotson and Dr. Worthy, the patient will be admitted to the hospitalist services for continuation of care. Both nephrology and gastroenterology consultation has been requested to evaluate and assist during the clinical encounter. Home medications have been reviewed and reconciled. CODE STATUS discussed; patient is a FULL CODE. Home Medications Medication Instructions Recorded Confirmed Type Insulin Glargine [Lantus] 10 unit SUBCUT QOTHER DAY 06/06/15 04/13/17 History Metoclopramide HCl 5 mg PO QID PRN 11/30/16 04/13/17 History Pantoprazole Tab [Protonix Tab] 40 mg PO BID 12/30/16 04/13/17 History Pro Renal D 1 tablet PO DAILY 01/28/17 04/13/17 History Carvedilol [Coreg] 6.25 mg PO BID tablet 02/20/17 04/13/17 Rx cloNIDine TAB [Catapres Tab] 0.1 mg PO TID tablet 02/20/17 04/13/17 Rx Calcium Acetate [Phoslo] 1,334 mg PO BID 04/13/17 04/13/17 History Calcium Acetate [Phoslo] 2,001 mg PO TID W/MEALS 04/13/17 04/13/17 History Cinacalcet HCl [Sensipar] 60 mg PO BID 04/13/17 04/13/17 History Doxazosin [Cardura] 4 mg PO BID 04/13/17 04/13/17 History HydrOXYzine PAMOATE CAP [Vistaril 25 mg PO Q6H PRN 04/13/17 04/13/17 History Cap] Losartan Potassium [Cozaar] 100 mg PO DAILY 04/13/17 04/13/17 History glipiZIDE [Glucotrol] 10 mg PO BID 04/13/17 04/13/17 History Allergies Allergy/AdvReac Type Severity Reaction Status Date / Time peanut Allergy Severe HIVES Verified 01/30/17 13:09 PEANUT BUTTER Allergy Severe ANAPHYLAXIS Uncoded 01/28/17 19:42 Medical,Surgical,& Family Hx - Medical History Cardio: History of: CAD, Hypertension, [place] (2007/2008), Cardiovascular Problems Psychological: No history of: Behavior Problems Neurology: No history of: Seizures HEENT: History of: Ear Problem (GLASSES), Eye Problem, Dental Problems Endocrine: History of: Diabetes Mellitus (IDDM), Diabetes Mellitus (NIDDM) Respiratory: No history of: Respiratory Problems (FLU VAC- YES; PNEU VAC- YES.) Renal: History of: Dialysis (MWF), Renal Failure Genitourinary: History of: Kidney Stones Gastrointestinal: History of: Diverticulitis/ Diverticulosis, GERD, Gastrointestinal Bleed, Polyps, GI Problems (GI bleeding) Musculoskeletal: History of: Amputation (right BKA) Hematology: History of: Anemia Other: History of: Anesthesia Reactions (NAUSEA AND VOMITING) - Surgical History Cardiac Surgeries: Sugical HX of: Cardiac Surgery (CABG 2008) Thoracic Surgeries: Patient denies;: Organ Transplant, Lobectomy Neurologic Surgeries: Patient denies: Neurologic Surgery HEENT Surgeries: Surgical HX of: Eye Surgery (CATARACTS) Patient denies: Tonsilectomy & Adenoidectomy Abdominal Surgeries: Surgical HX of: Cholecystectomy, Colonoscopy, EGD Reproductive Surgeries: Surgical HX of;: Hysterectomy, Tubal Ligation Patient denies;: Gynecologic Surgery Orthopedic Surgeries: Surgical HX of;: Implanted Devices (fistula rt upper arm, old graft in left arm) - Family History Family History: Reports;: Family Diabetes (PARENTS), Family Heart Disease, Family Hypertension, Family Stroke (MOM) - Social History Smoking Status: Never smoker 12 point system: reviewed and no additional remarkable complaints except as stated Exam - Constitutional Vitals: Period Temp Pulse Resp BP Sys/Durant Pulse Ox Last 24 Hr 97.8 F-97.8 F 60-72 16-23 163-205/37-53 96-100 General appearance: normal weight, no acute distress - Head Head exam: Present: normal inspection, normocephalic, atraumatic - Eye Eye exam: Present: EOMI. Absent: conjunctival injection, nystagmus Pupils: Present: LOUIS, normal accommodation - ENT ENT exam: Present: normal exam, normal external ear exam, normal oropharynx - Neck Neck exam: Present: normal inspection. Absent: lymphadenopathy, meningismus, thyromegaly - Respiratory Respiratory exam: Present: clear to auscultation bilaterally. Absent: rales, rhonchi, stridor, wheezes - Cardiovascular Cardiovascular exam: Present: regular rate and rhythm. Absent: carotid bruit, diastolic murmur, gallop, JVD, rubs, systolic murmur - GI/Abdominal GI/Abdominal exam: Present: normal bowel sounds. Absent: tenderness - Extremities Exam Extremities exam: Present: normal inspection, normal capillary refill, other ( Right below-knee amputation) - Back Exam Back exam: Present: normal inspection - Neurological Exam Neurological exam: Present: alert, oriented X3, CN II-XII intact - Psychiatric Psychiatric exam: Present: normal affect, normal mood - Skin Skin exam: Present: normal color, warm, dry Results - Labs CBC & BMP: 04/13/17 14:08 04/13/17 14:08 Lab Results: I have reviewed the past 24 hour labs
[2017-04-13] MEDS ORDERED: HydrOXYzine PAMOATE 25 MG CAPSULE PO PRN (19:13)
[2017-04-13] MEDS ORDERED: hydrALAZINE 20 MG/1 ML VIAL IV PRN (19:13)
[2017-04-13] MEDS ORDERED: METOCLOPRAMIDE 5 MG TABLET PO PRN (19:13)
[2017-04-13] MEDS ORDERED: GLUCAGON 1 MG VIAL IM PRN (19:13)
[2017-04-13 20:03] LABS: Hemoglobin 12.2 GM/DL (12.0-16.0)
[2017-04-13] MEDS: CINACALCET 30 MG TABLET PO SCH (21:33)
[2017-04-13] MEDS: DOXAZOSIN 4 MG TABLET PO SCH (21:33)
[2017-04-13] MEDS: glipiZIDE 10 MG TABLET PO SCH (21:33)
[2017-04-13] MEDS: cloNIDine 0.1 MG TABLET PO SCH (21:34)
[2017-04-13] MEDS: CARVEDILOL 6.25 MG TABLET PO SCH (21:34)
[2017-04-13] MEDS: PANTOPRAZOLE 40 MG TABLET PO SCH (21:34)
[2017-04-13] MEDS: INSULIN LISPRO 100 UNIT/ML SUBCUT SCH (22:14)
[2017-04-14 02:08] LABS: Hemoglobin 11.7 GM/DL (12.0-16.0)
[2017-04-14 05:19] LABS: Basophils % 0.5 % (0.0-0.8); Eosinophils # 0.2 10*3/uL (0.0-0.87); Eosinophils % 5.4 % (0.00-10.9); Hemoglobin 11.7 GM/DL (12.0-16.0); Immature Granulocytes % 0.2 %; Immature Granulocytes Absolute 0.01 #; Lymphocytes # 0.8 10*3/uL (1.4-4.0); Lymphocytes % 19.2 % (21.3-54.2); Mean Corpuscular HGB Conc 32.5 GM/DL (32-36); Mean Corpuscular Hemoglobin 30 PG (27-34); Mean Corpuscular Volume 91.4 FL (87-102); Mean Platelet Volume 11.1 FL (9.6-12.0); Monocytes # 0.7 10*3/uL (0.11-0.8); Monocytes % 16.2 % (1.7-12.7); Neutrophils # 2.4 10*3/uL (1.4-7.4); Neutrophils % 58.5 % (38.7-73.9); Platelet Count 171 T/CUMM (130-400); Red Blood Count 3.94 MC/CUMM (3.8-5.5); Red Cell Distribution Width 15.3 % (9.3-17.3); White Blood Count 4.1 T/CUMM (4-12)
[2017-04-14 05:49] LABS: Eosinophils 7 % (0-10); Hypochromasia 1+; Lymphocytes 13 % (20-55); Platelet Estimate Normal; Segmented Neutrophils 67 % (50-85); Total Cells Counted 100
[2017-04-14] MEDS: INSULIN LISPRO 100 UNIT/ML SUBCUT SCH ×4 (08:17→22:19)
[2017-04-14] MEDS ORDERED: MUPIROCIN 2% OINT 22 GM TUBE TOP ONE (08:24)
[2017-04-14] MEDS ORDERED: PANTOPRAZOLE 40 MG TABLET PO SCH (09:00)
--- NOTE | 2017-04-14 09:27 | Gastrointestinal Consult Note ---
<Jacy Palumbo - Last Filed: 04/14/17 09:19> Assessment and Plan (1) GI bleeding Problem details: possible intermittent bleeding in the right colon per the NM and CTA studies, history of intermittent GI bleeding in the past but negative Endo except for diverticulosis Status: Resolved Assessment and plan: 04/14-Sudden onset of bright red rectal bleeding mixed with stool with lower abdominal cramping. Hx of recent embolization to right ileocolic branch of the SMA. HH down slightly from admission with now . Continue to monitor HH. Clear liquid diet. If pt begins actively bleeding again, obtain stat CT GI bleeding scan. Plan and addendum to follow by Dr Hough. Current Visit: No History of Present Illness Chief complaint: GI bleed History of present illness: Ms. Carrillo is a 66 year old female who was admitted to the hospital with onset of rectal bleeding. Pt has a prior history of HTN, CAD, OR, DM, GERD, ESRD, and anemia. She states she was in her usual state of health until yesterday morning when she awoke and had the urge to have a bowel movements. She recalls some mild cramping in her abdomen prior to however had the bowel movement and noted some bright red blood in her stool. She states initially it was a small amount however she had another bowel movement after dialysis with more blood reported. She states she then came to the ER for further evaluation. Pt states she had one more bloody bowel movement last night after admission but denies any since this time. She denies any nausea or vomiting. States she continues to have some mild cramping such as the sensation to have a bowel movement with this. She denies any fever or chills. She has a prior history of GI bleeding in the recent past with most recent in February with embolization of the right ileocolic branch of the SMA. She states she had no further bleeding after that procedure. On admission, her HH is noted at and has trended down today at . Abdominal xray shows no acute processes. She does not take any anticoagulation or NSAIDs. She has had small bowel camera endoscopy in January of last year with no findings of blood loss at that time. Her last EGD was also in January with findings of gastric polyps and colonoscopy which showed colon polyps (sessile serrated adenoma) and diverticulosis. Home Medications Medication Instructions Recorded Confirmed Type Insulin Glargine [Lantus] 10 unit SUBCUT QOTHER DAY 06/06/15 04/13/17 History Metoclopramide HCl 5 mg PO QID PRN 11/30/16 04/13/17 History Pantoprazole Tab [Protonix Tab] 40 mg PO BID 12/30/16 04/13/17 History Pro Renal D 1 tablet PO DAILY 01/28/17 04/13/17 History Carvedilol [Coreg] 6.25 mg PO BID tablet 02/20/17 04/13/17 Rx cloNIDine TAB [Catapres Tab] 0.1 mg PO TID tablet 02/20/17 04/13/17 Rx Calcium Acetate [Phoslo] 1,334 mg PO BID 04/13/17 04/13/17 History Calcium Acetate [Phoslo] 2,001 mg PO TID W/MEALS 04/13/17 04/13/17 History Cinacalcet HCl [Sensipar] 60 mg PO BID 04/13/17 04/13/17 History Doxazosin [Cardura] 4 mg PO BID 04/13/17 04/13/17 History HydrOXYzine PAMOATE CAP [Vistaril 25 mg PO Q6H PRN 04/13/17 04/13/17 History Cap] Losartan Potassium [Cozaar] 100 mg PO DAILY 04/13/17 04/13/17 History glipiZIDE [Glucotrol] 10 mg PO BID 04/13/17 04/13/17 History Allergies Allergy/AdvReac Type Severity Reaction Status Date / Time peanut Allergy Severe HIVES Verified 01/30/17 13:09 PEANUT BUTTER Allergy Severe ANAPHYLAXIS Uncoded 01/28/17 19:42 Medical,Surgical,& Family Hx - Medical History Cardio: History of: CAD, Hypertension, OR (), Cardiovascular Problems Psychological: No history of: Behavior Problems Neurology: No history of: Seizures HEENT: History of: Ear Problem (GLASSES), Eye Problem, Dental Problems Endocrine: History of: Diabetes Mellitus (IDDM), Diabetes Mellitus (NIDDM) Respiratory: No history of: Respiratory Problems (FLU VAC- YES; PNEU VAC- YES.) Renal: History of: Dialysis (MWF), Renal Failure Genitourinary: History of: Kidney Stones Gastrointestinal: History of: Diverticulitis/ Diverticulosis, GERD, Gastrointestinal Bleed, Polyps, GI Problems (GI bleeding) Musculoskeletal: History of: Amputation (right BKA) Hematology: History of: Anemia Other: History of: Anesthesia Reactions (NAUSEA AND VOMITING) - Surgical History Cardiac Surgeries: Sugical HX of: Cardiac Surgery (CABG 2008) Thoracic Surgeries: Patient denies;: Organ Transplant, Lobectomy Neurologic Surgeries: Patient denies: Neurologic Surgery HEENT Surgeries: Surgical HX of: Eye Surgery (CATARACTS) Patient denies: Tonsilectomy & Adenoidectomy Abdominal Surgeries: Surgical HX of: Cholecystectomy, Colonoscopy, EGD Reproductive Surgeries: Surgical HX of;: Hysterectomy, Tubal Ligation Patient denies;: Gynecologic Surgery Orthopedic Surgeries: Surgical HX of;: Implanted Devices (fistula rt upper arm, old graft in left arm) - Family History Family History: Reports;: Family Diabetes (PARENTS), Family Heart Disease, Family Hypertension, Family Stroke (MOM) - Social History Smoking Status: Never smoker Frequency of Alcohol Use: None Type of Drug Use: None 12 point system: reviewed and no additional remarkable complaints except as stated - Constitutional Constitutional: Present: as per HPI - EENT Eyes: Present: as per HPI Ears: Present: as per HPI Nose, mouth and throat: Present: as per HPI - Cardiovascular Cardiovascular: Present: as per HPI - Respiratory Respiratory: Present: as per HPI - Gastrointestinal Gastrointestinal: Present: as per HPI, cramping, hematochezia - Genitourinary Genitourinary: Present: as per HPI - Musculoskeletal Musculoskeletal: Present: as per HPI - Neurological Neurological: Present: as per HPI - Psychiatric Psychiatric: Present: as per HPI - Endocrine Endocrine: Present: as per HPI - Hematologic/Lymphatic Hematologic/Lymphatic: Present: as per HPI Exam - Constitutional Vitals: Period Temp Pulse Resp BP Sys/Durant Pulse Ox Last 24 Hr 97.8 F-98.9 F 58-72 15-23 150-205/37-69 96-100 General appearance: normal weight, no acute distress - Head Head exam: Present: normal inspection, normocephalic - Eye Eye exam: Present: other (lids and conjunctiva unremarkable). Absent: scleral icterus - ENT ENT exam: Present: normal exam, normal oropharynx - Neck Neck exam: Present: normal inspection - Respiratory Respiratory exam: Present: clear to auscultation bilaterally. Absent: rales, rhonchi, wheezes - Cardiovascular Cardiovascular exam: Present: regular rate and rhythm. Absent: diastolic murmur , JVD, systolic murmur - GI/Abdominal GI/Abdominal exam: Present: normal bowel sounds, soft. Absent: ascites, distended, mass, organomegaly, tenderness - Extremities Exam Extremities exam: Present: normal inspection, full ROM - Back Exam Back exam: Present: normal inspection - Neurological Exam Neurological exam: Present: alert, oriented X3 - Psychiatric Psychiatric exam: Present: normal affect, normal mood - Skin Skin exam: Present: normal color, warm, dry Results - Labs CBC & BMP: 04/14/17 04:50 04/13/17 14:08 Lab Results: I have reviewed the past 24 hour labs - Diagnostic Findings Procedure: Abdominal x-ray: report reviewed by me <Anish Hough - Last Filed: 04/14/17 18:09> History of Present Illness History of present illness: Ms. Carrillo is a 66 year old female Exam - Constitutional Vitals: Period Temp Pulse Resp BP Sys/Durant Pulse Ox Last 24 Hr 96.9 F-98.9 F 58-62 15-20 140-164/47-69 96-100 Results - Labs CBC & BMP: 04/14/17 04:50 04/13/17 14:08
[2017-04-14] MEDS: cloNIDine 0.1 MG TABLET PO SCH ×3 (10:07→22:08)
[2017-04-14] MEDS: CARVEDILOL 6.25 MG TABLET PO SCH ×2 (10:07→22:07)
[2017-04-14] MEDS: DOXAZOSIN 4 MG TABLET PO SCH ×2 (10:07→22:07)
[2017-04-14] MEDS: CINACALCET 30 MG TABLET PO SCH ×2 (10:07→22:07)
[2017-04-14] MEDS: MULTIVITAMIN (BEROCCA) TABLET PO SCH (10:07)
[2017-04-14] MEDS: PANTOPRAZOLE 40 MG TABLET PO SCH ×2 (10:08→22:19)
[2017-04-14] MEDS: glipiZIDE 10 MG TABLET PO SCH ×2 (10:08→22:21)
[2017-04-14] MEDS: CALCIUM ACETATE 667 MG CAPSULE PO SCH ×3 (10:08→16:41)
--- NOTE | 2017-04-14 10:56 | Event Note ---
66-year-old Afro-[place]ese female with history of diabetes, hypertension, end- stage renal disease on HD admitted by the hospitalist service on 04/13/2017 with GI bleeding. Patient's H&H is stable and GI has been consulted. Patient was scheduled this morning for same-day surgery for removal of her left chest HD catheter. She has a graft in her right thigh that is being used on dialysis without any problems. Dr. Puentes we will plan to take this catheter out right before her discharge home this hospital visit. It can be used as a large bore catheter for blood and/or fluids if needed. Dr. Puentes has seen and examined patient.
--- NOTE | 2017-04-14 11:37 | Hospitalist Progress Note ---
Assessment and Plan (1) End-stage renal disease on hemodialysis Status: Acute Assessment and plan: Nephrology consulted Current Visit: Yes (2) Coronary artery disease Status: Chronic Current Visit: No (3) Lower gastrointestinal hemorrhage Status: Resolved Assessment and plan: Multiple admissions for the same Recent admission with embolization of right ileocolic branch of SMA H/H with decrease to Will continue to monitor GI to assist Current Visit: No (4) Diabetes mellitus Status: Chronic Assessment and plan: Lantus 10 SSI Current Visit: No Qualifiers: Diabetes mellitus type: type 2 Chronic kidney disease stage: on chronic dialysis Hospitalist: Subjective Interval history: No acute events overnight. Last bloody bowel movement was yesterday. She denies any abdominal pain. She was scheduled to have her tunnelled HD cath removed today, Dr. Puentes will remove it before discharge. Exam - Constitutional Vitals: Period Temp Pulse Resp BP Sys/Durant Pulse Ox Last 24 Hr 97.8 F-98.9 F 58-72 15-23 150-205/37-69 96-100 General appearance: normal weight - Head Head exam: Present: normocephalic, atraumatic - Eye Eye exam: Present: EOMI Pupils: Present: LOUIS - ENT ENT exam: Present: normal exam - Neck Neck exam: Present: normal inspection - Respiratory Respiratory exam: Present: clear to auscultation bilaterally. Absent: rhonchi, wheezes - Cardiovascular Cardiovascular exam: Present: regular rate and rhythm - GI/Abdominal GI/Abdominal exam: Present: normal bowel sounds, soft. Absent: tenderness, rebound - Extremities Exam Extremities exam: Present: normal inspection - Back Exam Back exam: Present: normal inspection - Neurological Exam Neurological exam: Present: alert, oriented X3 - Psychiatric Psychiatric exam: Present: normal affect, normal mood - Skin Skin exam: Present: warm, intact Results - Labs CBC & BMP: 04/14/17 04:50 04/13/17 14:08
[2017-04-14] MEDS ORDERED: BISACODYL 5 MG TABLET PO ONE (12:00)
[2017-04-14] MEDS: LOSARTAN 50 MG TABLET PO SCH (12:04)
[2017-04-14] MEDS ORDERED: POLYETHYLENE GLYCOL POWDER 255 GM BOTTLE PO ONE (14:00)
--- NOTE | 2017-04-14 14:09 | EKG Report ---
Stationary ECG Study [facility] Test Date: 04/14/2017 2:11:59 PM Pat Name: MERCEDES SOTO Department: Room: 521 Gender: F Help Desk Representative: LUZ : 1950 Requested by: Gianluca Gay Order Number: [id number] Reading MD: JOSE ERICKSON Intervals [place] Rate: 67 P: 63 DE: 176 QRS: 78 QRSD: 98 T: 95 QT: 458 QTc: 473 Interpretive Statements SINUS RHYTHM WITH VENTRICULAR PREMATURE COMPLEX DELAYED ANTROR R WAVE PROGRESSON WITH POSSIBLE ANTERIOR MYOCARDIAL INFARCTION, OLD IF PRESENT Electronically Signed On 04-15-17 12:28:42 CDT by JOSE ERICKSON [email or web address]
--- NOTE | 2017-04-14 15:43 | Nephrology Consult Note ---
History of Present Illness Chief complaint: ESRD patient with recurrent GI bleeding History of present illness: Ms. Carrillo is a 66 year old female with end-stage renal disease who dialyzes on a Thursday basis in [facility]. The patient presented to the emergency room yesterday after dialysis for bright red blood from her rectum. The patient noticed the morning of her dialysis yesterday that she had had some bright red blood per rectum. She subsequently went to dialysis and she was dialyzed on a heparin bath there and during her treatment she had another bowel movement with bright red blood. She was subsequently admitted to the hospital for observation. Her hemoglobin was around 13 on admission and is now decreased to around 11. Patient continues to have blood in her bowel movements just having one prior to our examination today. Patient has a long history of recurrent GI bleeds. She was on aspirin at one time this was stopped and for a period of time did well for a few months. The patient about 2-3 weeks ago had embolus therapy done to a portion of her GI tract that seem to have some pooling of blood during 1 of her acute GI bleed. She states this seemed to hold her bleeding for a while until yesterday. The patient is not on any blood thinning medicine such as Plavix or aspirin or Coumadin at this time. She does get heparin on a regular basis during her dialysis treatments. The patient did have some associated abdominal pain with her GI bleeding episode ROS: Head - denies headaches ENT - denies sore throat Lymphatics - denies lymphadenopathy Hematology -positive bleeding problems Heart - denies chest pain Lungs - denies shortness of breath Abdomen -positive abdominal pain Musculoskeletal - denies arthritis Skin - denies rash Neurology - denies stroke General - denies fever PE: General: in no acute distress Eyes: Pupils are round and reactive, conjunctivae are clear ENT: Nose is clear, O/P is benign Neck: Supple, no thyromegaly Lymphatics: No cervical, supraclavicular or axillary adenopathy Heart: Regular rate and rhythm, no edema Lungs: Clear to auscultation anteriorly, chest expansion symmetric Abdomen: Soft, hyperactive bowel sounds, no hepatomegaly Musculoskeletal: No joint erythema or effusions, she does have a right below the knee amputation. Skin: Normal turgor, normal hydration, no rash Neuro/Psych: Alert and cooperative with fair insight Home Medications Medication Instructions Recorded Confirmed Type Insulin Glargine [Lantus] 10 unit SUBCUT QOTHER DAY 06/06/15 04/13/17 History Metoclopramide HCl 5 mg PO QID PRN 11/30/16 04/13/17 History Pantoprazole Tab [Protonix Tab] 40 mg PO BID 12/30/16 04/13/17 History Pro Renal D 1 tablet PO DAILY 01/28/17 04/13/17 History Carvedilol [Coreg] 6.25 mg PO BID tablet 02/20/17 04/13/17 Rx cloNIDine TAB [Catapres Tab] 0.1 mg PO TID tablet 02/20/17 04/13/17 Rx Calcium Acetate [Phoslo] 1,334 mg PO BID 04/13/17 04/13/17 History Calcium Acetate [Phoslo] 2,001 mg PO TID W/MEALS 04/13/17 04/13/17 History Cinacalcet HCl [Sensipar] 60 mg PO BID 04/13/17 04/13/17 History Doxazosin [Cardura] 4 mg PO BID 04/13/17 04/13/17 History HydrOXYzine PAMOATE CAP [Vistaril 25 mg PO Q6H PRN 04/13/17 04/13/17 History Cap] Losartan Potassium [Cozaar] 100 mg PO DAILY 04/13/17 04/13/17 History glipiZIDE [Glucotrol] 10 mg PO BID 04/13/17 04/13/17 History Allergies Allergy/AdvReac Type Severity Reaction Status Date / Time peanut Allergy Severe HIVES Verified 01/30/17 13:09 PEANUT BUTTER Allergy Severe ANAPHYLAXIS Uncoded 01/28/17 19:42 Medical,Surgical,& Family Hx - Medical History Cardio: History of: CAD, Hypertension, [place] (2007/2008), Cardiovascular Problems Psychological: No history of: Behavior Problems Neurology: No history of: Seizures HEENT: History of: Ear Problem (GLASSES), Eye Problem, Dental Problems Endocrine: History of: Diabetes Mellitus (IDDM), Diabetes Mellitus (NIDDM) Respiratory: No history of: Respiratory Problems (FLU VAC- YES; PNEU VAC- YES.) Renal: History of: Dialysis (MWF), Renal Failure Genitourinary: History of: Kidney Stones Gastrointestinal: History of: Diverticulitis/ Diverticulosis, GERD, Gastrointestinal Bleed, Polyps, GI Problems (GI bleeding) Musculoskeletal: History of: Amputation (right BKA) Hematology: History of: Anemia Other: History of: Anesthesia Reactions (NAUSEA AND VOMITING) - Surgical History Cardiac Surgeries: Sugical HX of: Cardiac Surgery (CABG 2008) Thoracic Surgeries: Patient denies;: Organ Transplant, Lobectomy Neurologic Surgeries: Patient denies: Neurologic Surgery HEENT Surgeries: Surgical HX of: Eye Surgery (CATARACTS) Patient denies: Tonsilectomy & Adenoidectomy Abdominal Surgeries: Surgical HX of: Cholecystectomy, Colonoscopy, EGD Reproductive Surgeries: Surgical HX of;: Hysterectomy, Tubal Ligation Patient denies;: Gynecologic Surgery Orthopedic Surgeries: Surgical HX of;: Implanted Devices (fistula rt upper arm, old graft in left arm) - Family History Family History: Reports;: Family Diabetes (PARENTS), Family Heart Disease, Family Hypertension, Family Stroke (MOM) - Social History Smoking Status: Never smoker Frequency of Alcohol Use: None Type of Drug Use: None Exam - Vital Signs Vital signs: Period Temp Pulse Resp BP Sys/Durant Pulse Ox Last 24 Hr 96.9 F-98.9 F 58-62 15-23 150-193/47-69 96-100 Results - Labs CBC & BMP: 04/14/17 04:50 04/13/17 14:08 Assessment and Plan (1) End-stage renal disease on hemodialysis Status: Acute Assessment and plan: We will plan on hemodialysis tomorrow without heparin Current Visit: Yes (2) Lower GI bleeding Status: Acute Assessment and plan: Management per gastroenterology, it sounds like she may have a lower endoscopy tomorrow Current Visit: Yes (3) Anemia Problem details: Extensive negative workup. Hgb now stable. Bleeding scan and upper and lower endoscopy negative for source but confirming blood in entire colon. Not sure if bleeding brisk enough for arteriogram to detect. Status: Acute Current Visit: No Qualifiers: Anemia type: due to chronic kidney disease Chronic kidney disease stage: on chronic dialysis Qualified Code(s): N18.6 - End stage renal disease; D63.1 - Anemia in chronic kidney disease; Z99.2 - Dependence on renal dialysis (4) History of diverticulosis Status: Acute Current Visit: No (5) Hypertension Status: Acute Current Visit: No (6) Secondary hyperparathyroidism Status: Acute Assessment and plan: Continue her phosphate binder Current Visit: No (7) Diabetes mellitus Status: Chronic Assessment and plan: Monitor with sliding scale Current Visit: No
[2017-04-15] MEDS: DEXTROSE 50% 25 GM/50 ML VIAL IV PRN ×2 (02:01→04:18)
[2017-04-15 05:43] LABS: Basophils % 0.2 % (0.0-0.8); Eosinophils # 0.1 10*3/uL (0.0-0.87); Eosinophils % 2.5 % (0.00-10.9); Hematocrit 38.8 VOL% (35.7-47.0); Hemoglobin 12.7 GM/DL (12.0-16.0); Immature Granulocytes % 0.4 %; Immature Granulocytes Absolute 0.02 #; Lymphocytes # 0.5 10*3/uL (1.4-4.0); Mean Corpuscular HGB Conc 32.7 GM/DL (32-36); Mean Corpuscular Hemoglobin 29 PG (27-34); Mean Corpuscular Volume 89.8 FL (87-102); Mean Platelet Volume 12.4 FL (9.6-12.0); Monocytes # 0.5 10*3/uL (0.11-0.8); Monocytes % 10.4 % (1.7-12.7); Neutrophils # 3.6 10*3/uL (1.4-7.4); Neutrophils % 76.5 % (38.7-73.9); Platelet Count 125 T/CUMM (130-400); Red Blood Count 4.32 MC/CUMM (3.8-5.5); Red Cell Distribution Width 14.7 % (9.3-17.3); White Blood Count 4.7 T/CUMM (4-12)
[2017-04-15 05:59] LABS: Band Neutrophils 2 % (0-10); Eosinophils 2 % (0-10); Hypochromasia 1+; Lymphocytes 5 % (20-55); Ovalocytes Slight; Platelet Estimate Normal; Segmented Neutrophils 82 % (50-85); Total Cells Counted 100
[2017-04-15 06:03] LABS: Calcium 7.3 MG/DL (8.5-10.1); Osmolality,Calculated 282.2 MOS/KG (273-304); Potassium 3.7 MMOL/L (3.5-5.1)
[2017-04-15] MEDS: CALCIUM ACETATE 667 MG CAPSULE PO SCH ×3 (07:39→16:53)
[2017-04-15] MEDS: INSULIN LISPRO 100 UNIT/ML SUBCUT SCH ×4 (07:39→20:12)
[2017-04-15] MEDS: glipiZIDE 10 MG TABLET PO SCH ×2 (08:11→20:14)
[2017-04-15] MEDS: CARVEDILOL 6.25 MG TABLET PO SCH ×2 (08:18→20:14)
[2017-04-15] MEDS ORDERED: INSULIN GLARGINE 100 UNIT/ML SUBCUT SCH (09:00)
[2017-04-15] MEDS: CINACALCET 30 MG TABLET PO SCH ×2 (09:00→20:14)
[2017-04-15] MEDS: cloNIDine 0.1 MG TABLET PO SCH ×3 (09:00→20:14)
[2017-04-15] MEDS ORDERED: PROPOFOL 200 MG/20 ML VIAL IV ONE (10:37)
[2017-04-15] MEDS ORDERED: LIDOCAINE 1% 5 ML VIAL ONE (10:37)
--- NOTE | 2017-04-15 10:54 | History and Physical Update ---
History and Physical Update - Physical Exam Mental Status: alert and oriented Heart: regular rate and rhythm Lung: clear to auscultation Abdomen: within normal limits Vitals: within normal limits
--- NOTE | 2017-04-15 10:58 | Operative Note ---
Date of procedure: 04/15/17 Pre-op diagnosis: Recurrent rectal bleeding Procedure: Colonoscopy with hot biopsy polypectomy 6 66-year-old female with end-stage renal disease with recurrent rectal bleeding she has previously had embolization of a suspicious area in the cecum. She now returns with complaints of recurrent bleeding and abdominal discomfort for repeat colon. Informed consent was obtained for the patient. She was sedated with MAC anesthesia per anesthesia protocol. Patient placed left lateral decubitus position digital exam revealed no rectal masses. No blood was present on the examining finger below. The Olympus flexible video colonoscope was inserted and canal vessel direct vision level of the cecum. Findings: Cecum-normal cecal mucosa no AVMs seen appendiceal orifice and ileocecal valve identified. Terminal ileum-normal Ascending colon-normal Transverse colon-normal Descending colon for polyps were seen in the mid descending colon all measuring 4-5 mm hot biopsy fulgurated. Mild diverticulosis was seen. Sigmoid colon-diverticulosis no bleeding 2 small 5 mm polyp were hot biopsied. Rectum normal direct retroflexed views no bleeding. No blood seen throughout the colon. No evidence of colitis identified. The procedure terminated placed our procedure well Postop diagnosis: 1. Colon [id number] polyp path 2. Diverticulosis-maintain adequate fiber and fluid intake. 3. If bleeding recurs consider bleeding scan for further attempts at localization for embolization. 4. Monitor H&H and transfuse if needed. If hematocrit remains stable she can be discharged from my standpoint tomorrow. Anesthesia: MAC Surgeon / Physician: Anish Hough Estimated blood loss: none Specimens: none sent Condition: stable Disposition: post procedure unit Results - Labs CBC & BMP: 04/15/17 05:07 04/15/17 05:07 Discharge Plan - Discharge Medications No Action Insulin Glargine [Lantus] 10 unit SUBCUT QOTHER DAY Metoclopramide HCl 5 mg PO QID PRN PRN Reason: Indigestion Pro Renal D 1 tablet PO DAILY Carvedilol [Coreg] 6.25 mg PO BID tablet cloNIDine TAB [Catapres Tab] 0.1 mg PO TID tablet Calcium Acetate [Phoslo] 1,334 mg PO BID Doxazosin [Cardura] 4 mg PO BID Losartan Potassium [Cozaar] 100 mg PO DAILY HydrOXYzine PAMOATE CAP [Vistaril Cap] 25 mg PO Q6H PRN PRN Reason: Itching glipiZIDE [Glucotrol] 10 mg PO BID Cinacalcet HCl [Sensipar] 60 mg PO BID Pantoprazole Tab [Protonix Tab] 40 mg PO BID Calcium Acetate [Phoslo] 2,001 mg PO TID W/MEALS - Follow Up or Referral - Forms/Instructions
--- NOTE | 2017-04-15 11:07 | Anesthesia Post-Op ---
Anesthesia Post OP - Post Ansesthetic Evaluation Patient seen in post op: Yes Resp: within normal limits CV: within normal limits Mental: within normal limits Temp: within normal limits [id number]: within normal limits Nausea and Vomiting: within normal limits Pain: within normal limits
--- NOTE | 2017-04-15 12:46 | Nephrology Progress Note ---
Nephrology - PN: Subj Interval history: Pt. feeling well, no further bleeding since yesterday. Ros: pulm - no sob PE: in nad A/P 1. Gi bleed - s/p lower endoscopy this am, polypectomy x 6 done, no active source of bleeding seen. 2. Esrd - HD today 3. Anemia - monitor H&H Exam (PN)-Nephrology - Vital Signs Vital signs: Period Temp Pulse Resp BP Sys/Durant Pulse Ox Last 24 Hr 96.6 F-98.1 F 52-64 14-20 114-164/47-60 96-100 - Lab 04/15/17 05:07 04/15/17 05:07 Most recent lab results Calcium 7.3 MG/DL (8.5-10.1) L 04/15/17 05:07 Magnesium 2.0 MG/DL (1.8-2.4) 04/15/17 05:07 Assessment and Plan (1) End-stage renal disease on hemodialysis Status: Acute Assessment and plan: We will plan on hemodialysis tomorrow without heparin Current Visit: Yes (2) Lower GI bleeding Status: Acute Assessment and plan: Management per gastroenterology, it sounds like she may have a lower endoscopy tomorrow Current Visit: Yes (3) Anemia Problem details: Extensive negative workup. Hgb now stable. Bleeding scan and upper and lower endoscopy negative for source but confirming blood in entire colon. Not sure if bleeding brisk enough for arteriogram to detect. Status: Acute Current Visit: No Qualifiers: Anemia type: due to chronic kidney disease Chronic kidney disease stage: on chronic dialysis Qualified Code(s): N18.6 - End stage renal disease; D63.1 - Anemia in chronic kidney disease; Z99.2 - Dependence on renal dialysis (4) History of diverticulosis Status: Acute Current Visit: No (5) Hypertension Status: Acute Current Visit: No (6) Secondary hyperparathyroidism Status: Acute Assessment and plan: Continue her phosphate binder Current Visit: No (7) Diabetes mellitus Status: Chronic Assessment and plan: Monitor with sliding scale Current Visit: No
[2017-04-15] MEDS: PANTOPRAZOLE 40 MG TABLET PO SCH ×2 (13:50→20:14)
[2017-04-15] MEDS: MULTIVITAMIN (BEROCCA) TABLET PO SCH (13:50)
[2017-04-15] MEDS: DOXAZOSIN 4 MG TABLET PO SCH ×2 (16:25→20:14)
--- NOTE | 2017-04-15 16:39 | Hospitalist Progress Note ---
Assessment and Plan (1) End-stage renal disease on hemodialysis Status: Acute Assessment and plan: Nephrology consulted Current Visit: Yes (2) Coronary artery disease Status: Chronic Current Visit: No (3) Lower gastrointestinal hemorrhage Status: Resolved Assessment and plan: Multiple admissions for the same Recent admission with embolization of right ileocolic branch of SMA H/H with decrease to Will continue to monitor Colonoscopy today with diverticulosis Current Visit: No (4) Diabetes mellitus Status: Chronic Assessment and plan: Lantus 10 SSI Current Visit: No Qualifiers: Diabetes mellitus type: type 2 Chronic kidney disease stage: on chronic dialysis Hospitalist: Subjective Interval history: No acute events overnight. Colonoscopy today. Patient without complaints. Possible discharge tomorrow. Exam - Constitutional Vitals: Period Temp Pulse Resp BP Sys/Durant Pulse Ox Last 24 Hr 96.6 F-97.5 F 52-64 14-20 114-164/47-60 96-100 General appearance: normal weight - Head Head exam: Present: normocephalic, atraumatic - Eye Eye exam: Present: EOMI Pupils: Present: LOUIS - ENT ENT exam: Present: normal exam - Neck Neck exam: Present: normal inspection - Respiratory Respiratory exam: Present: clear to auscultation bilaterally. Absent: wheezes - Cardiovascular Cardiovascular exam: Present: regular rate and rhythm - GI/Abdominal GI/Abdominal exam: Present: normal bowel sounds, soft. Absent: tenderness, rebound - Back Exam Back exam: Present: normal inspection - Neurological Exam Neurological exam: Present: alert, oriented X3 - Psychiatric Psychiatric exam: Present: normal affect, normal mood - Skin Skin exam: Present: warm, intact Results - Labs CBC & BMP: 04/15/17 05:07 04/15/17 05:07
[2017-04-15] MEDS: LOSARTAN 50 MG TABLET PO SCH (16:53)
[2017-04-15] MEDS ORDERED: DEXTROSE 50% 25 GM/50 ML SYRINGE IV PRN (23:53)
[2017-04-16 05:19] LABS: Basophils % 0.2 % (0.0-0.8); Eosinophils # 0.1 10*3/uL (0.0-0.87); Eosinophils % 2.9 % (0.00-10.9); Hematocrit 37.8 VOL% (35.7-47.0); Immature Granulocytes % 0.2 %; Immature Granulocytes Absolute 0.01 #; Lymphocytes # 0.7 10*3/uL (1.4-4.0); Lymphocytes % 14.9 % (21.3-54.2); Mean Corpuscular HGB Conc 31.7 GM/DL (32-36); Mean Corpuscular Hemoglobin 29 PG (27-34); Mean Corpuscular Volume 91.1 FL (87-102); Mean Platelet Volume 11.2 FL (9.6-12.0); Monocytes # 0.6 10*3/uL (0.11-0.8); Monocytes % 12.7 % (1.7-12.7); Neutrophils # 3.1 10*3/uL (1.4-7.4); Neutrophils % 69.1 % (38.7-73.9); Platelet Count 186 T/CUMM (130-400); Red Blood Count 4.15 MC/CUMM (3.8-5.5); Red Cell Distribution Width 15.1 % (9.3-17.3); White Blood Count 4.4 T/CUMM (4-12)
[2017-04-16 05:46] LABS: Calcium 7.4 MG/DL (8.5-10.1); Osmolality,Calculated 281.1 MOS/KG (273-304); Potassium 4.2 MMOL/L (3.5-5.1)
[2017-04-16] MEDS: INSULIN LISPRO 100 UNIT/ML SUBCUT SCH ×2 (07:28→11:30)
--- NOTE | 2017-04-16 07:57 | Discharge Summary ---
<Jeovany Haji - Last Filed: 04/16/17 07:46> Hospital Course - Hospital Course Hospital Course: This is a 66-year-old female that presented to the ED at [facility] on afternoon of April 13, 2017 for the evaluation of bloody stools. Patient has a very long and complex medical history significant for hypertension, coronary artery disease, myocardial infarction, diabetes, renal calculi, gastroesophageal reflux disease, diverticulitis, GI bleed, right below the knee amputation, end-stage renal disease, and anemia. Patient has surgical history significant for coronary artery bypass graft (2009), cataracts removal, cholecystectomy, colonoscopy, EGD, hysterectomy, tubal ligation, creation of multiple AV fistulas to the right arm and left arm). Patient reported the onset of the above symptoms on the morning of admission. The patient reported that she had a stool prior to hemodialysis and that there was a "little bit of blood " in the stool. The patient proceeded to present to the hemodialysis and shortly after her hemodialysis treatment, she reported that she had another bowel movement and that there was a large amount of blood at this time. Patient describes the blood as "bright red "in color and "large" in quantity; however denied abdominal pain, shortness of breath, or syncope. She was advised by the hemodialysis staff to present to the ED for further evaluation. The patient was assessed at the time of ED presentation. Patient was noted to be hypertensive with a blood pressure noted at 170/41. Labs were obtained; complete blood count reported white blood cell count of 5.0, hemoglobin 13.1, hematocrit 40.3, and platelet count of 202. Coagulation panel reported INR 1.0 , PT 11.0, PTT 33.1. Complete metabolic profile reported sodium at 140, potassium 3.4, chloride 98, carbon dioxide 35, BUN 20, creatinine 5.30, glucose 159, magnesium 2.0, calcium 8.5, alkaline phosphatase 220, albumin 3.3. Abdominal x-ray was essentially unremarkable for any acute processes; however interval placement of a mesenteric embolization coil was noted. Chest x-ray reported cardiomegaly and borderline pulmonary venous hypertension; however no mickey pneumonia or acute process noted otherwise. The patient was subsequently admitted to the hospitalist service for continuation of care. At the time of admission, both nephrology and gastroenterology consultations were requested. On April 14, 2017, the patient was assessed by gastroenterology. On March 16, 2017 the patient underwent colonoscopy with hot biopsy polypectomy 6; however no active source of bleeding was seen. Pathology report is pending. She has not experienced any additional episodes of rectal bleeding. During the clinical encounter, the patient was evaluated by both nephrology and general surgery. The patient's hemodialysis was continued as previously ordered. Prior to the patient's hospitalization, the patient was scheduled for removal of her vascular catheter. The patient was seen by surgery and is scheduled for her vascular catheter to be removed. The patient's condition has remained stable. The patient has not experienced any significant overnight events. Today, we feel that she is indeed appropriate for discharge after her vascular catheter removal to follow-up with her primary care physician and sales analyst as indicated. Diagnosis - Discharge Diagnosis (1) End-stage renal disease on hemodialysis Status: Acute (2) Lower GI bleeding Status: Acute (3) Anemia Status: Acute Discharge Plan - Discharge Data Disposition: Disch To Home/Self Care - Discharge Medications Continue Insulin Glargine [Lantus] 10 unit SUBCUT QOTHER DAY Metoclopramide HCl 5 mg PO QID PRN PRN Reason: Indigestion Pro Renal D 1 tablet PO DAILY Carvedilol [Coreg] 6.25 mg PO BID tablet cloNIDine TAB [Catapres Tab] 0.1 mg PO TID tablet Calcium Acetate [Phoslo] 1,334 mg PO BID Doxazosin [Cardura] 4 mg PO BID Losartan Potassium [Cozaar] 100 mg PO DAILY HydrOXYzine PAMOATE CAP [Vistaril Cap] 25 mg PO Q6H PRN PRN Reason: Itching glipiZIDE [Glucotrol] 10 mg PO BID Cinacalcet HCl [Sensipar] 60 mg PO BID Pantoprazole Tab [Protonix Tab] 40 mg PO BID Calcium Acetate [Phoslo] 2,001 mg PO TID W/MEALS - Follow Up or Referral - Forms/Instructions Exam - Constitutional Vitals: Period Temp Pulse Resp BP Sys/Durant Pulse Ox Last 24 Hr 97.5 F-99 F 54-77 16-20 110-142/46-54 95-100 Discharge Results Labs on day of discharge: Labs from last 24 hours 04/16/17 04/16/17 04/16/17 07:26 04:35 04:35 WBC 4.4 RBC 4.15 Hgb 12.0 Hct 37.8 MCV 91.1 MCH 29 MCHC 31.7 L RDW 15.1 Plt Count 186 D MPV 11.2 Neut % (Auto) 69.1 Lymph % (Auto) 14.9 L Sullivan % (Auto) 12.7 Eos % (Auto) 2.9 Baso % (Auto) 0.2 Neut # (Auto) 3.1 Lymph # (Auto) 0.7 L Sullivan # (Auto) 0.6 Eos # (Auto) 0.1 Baso # (Auto) 0.0 Immature Gran % 0.2 Nucleated RBC % 0.0 Immature Gran # 0.01 Nucleated RBCs # 0.00 Sodium 135 L Potassium 4.2 Chloride 100 Carbon Dioxide 26 Anion Gap 13.2 BUN 27 H D Creatinine 6.20 H GFR Calculation 7 BUN/Creatinine Ratio 4.00 L Glucose 224 H POC Glucose 180 H Calculated Osmolality 281.1 Calcium 7.4 L 04/16/17 04/15/17 04/15/17 00:23 23:46 19:24 WBC RBC Hgb Hct MCV MCH MCHC RDW Plt Count MPV Neut % (Auto) Lymph % (Auto) Sullivan % (Auto) Eos % (Auto) Baso % (Auto) Neut # (Auto) Lymph # (Auto) Sullivan # (Auto) Eos # (Auto) Baso # (Auto) Immature Gran % Nucleated RBC % Immature Gran # Nucleated RBCs # Sodium Potassium Chloride Carbon Dioxide Anion Gap BUN Creatinine GFR Calculation BUN/Creatinine Ratio Glucose POC Glucose 274 H < 20 L* 301 H Calculated Osmolality Calcium 04/15/17 04/15/17 16:00 11:55 WBC RBC Hgb Hct MCV MCH MCHC RDW Plt Count MPV Neut % (Auto) Lymph % (Auto) Sullivan % (Auto) Eos % (Auto) Baso % (Auto) Neut # (Auto) Lymph # (Auto) Sullivan # (Auto) Eos # (Auto) Baso # (Auto) Immature Gran % Nucleated RBC % Immature Gran # Nucleated RBCs # Sodium Potassium Chloride Carbon Dioxide Anion Gap BUN Creatinine GFR Calculation BUN/Creatinine Ratio Glucose POC Glucose 134 H 132 H Calculated Osmolality Calcium DS: Provider Date of admission: 04/13/17 16:46 Primary care physician: Austin García Jr., MD Attending physician on admission: Claude Oliva MD Consults: 04/13/17 16:47 Consult to Physician [CONS] Routine Comment: ESRD Consulting Provider: Edilberto Mccrary When should Consulting Provider be notified: In am Person Notified: Date Notified: 04/14/17 Time Notified: 10:31 Consult to Physician [CONS] Routine Comment: known to you from February 2017 Consulting Provider: Anish Hough When should Consulting Provider be notified: Now Person Notified: Jacy Palumbo Date Notified: 04/14/17 Time Notified: 09:23 04/13/17 19:12 Consult to Pastoral Services [CONS] Routine Comment: Pastoral Screen: 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 Visit Pastoral Screen Source of Request: Patient 04/14/17 08:30 Consult to Physician [CONS] Routine Comment: was scheduled for tessio removal today, now in hos Consulting Provider: Conor Puentes Person Notified: Dr Puentes Date Notified: 04/14/17 Time Notified: 08:31 04/15/17 13:14 Consult to Anesthesiology [CONS] Routine Consulting Provider: Reason for Anesthesiology: Pre-op Clearance Discharging clinician: Jeovany Haji CNP <Armaan Pierre - Last Filed: 04/16/17 10:33> Hospital Course - Time spent with patient Time with patient DS: Less than 30 minutes (25) Diagnosis - Discharge Diagnosis (1) End-stage renal disease on hemodialysis Status: Chronic (2) Coronary artery disease Status: Chronic (3) Lower gastrointestinal hemorrhage Status: Resolved (4) Diabetes mellitus Status: Chronic Discharge Plan - Discharge Data Condition at Discharge: Stable Discharge Diet: high fiber diet Activity: increase activity as tolerated Hygiene: no restrictions Weight Bearing at Discharge: weight bear as tolerated Contact your physician if you experience:: Shortness of breath, Bleeding Exam - Constitutional General appearance: over weight - Head Head exam: Present: normocephalic, atraumatic - Eye Eye exam: Present: EOMI Pupils: Present: LOUIS - ENT ENT exam: Present: normal exam - Neck Neck exam: Present: normal inspection - Respiratory Respiratory exam: Present: clear to auscultation bilaterally. Absent: rhonchi, wheezes - Cardiovascular Cardiovascular exam: Present: regular rate and rhythm - GI/Abdominal GI/Abdominal exam: Present: normal bowel sounds, soft. Absent: tenderness, rebound - Extremities Exam Extremities exam: Present: normal inspection - Back Exam Back exam: Present: normal inspection - Neurological Exam Neurological exam: Present: alert, oriented X3 - Psychiatric Psychiatric exam: Present: normal affect, normal mood - Skin Skin exam: Present: warm, intact
[2017-04-16] MEDS: glipiZIDE 10 MG TABLET PO SCH (08:10)
[2017-04-16] MEDS: CALCIUM ACETATE 667 MG CAPSULE PO SCH ×2 (08:10→14:40)
[2017-04-16] MEDS: CARVEDILOL 6.25 MG TABLET PO SCH (08:11)
[2017-04-16] MEDS: PANTOPRAZOLE 40 MG TABLET PO SCH (08:11)
[2017-04-16] MEDS: cloNIDine 0.1 MG TABLET PO SCH ×2 (09:00→14:40)
[2017-04-16] MEDS: DOXAZOSIN 4 MG TABLET PO SCH (09:00)
--- NOTE | 2017-04-16 09:16 | Gastrointestinal Progress Note ---
<PaulinoqiJacy Sherrill - Last Filed: 04/16/17 09:14> Assessment and Plan (1) GI bleeding Problem details: possible intermittent bleeding in the right colon per the NM and CTA studies, history of intermittent GI bleeding in the past but negative Endo except for diverticulosis Status: Resolved Assessment and plan: 04/16-No overt bleeding. Colonoscopy report noted as below. HH remained stable. For discharge home today. Plan and addendum to follow by Dr Hough. 04/14-Sudden onset of bright red rectal bleeding mixed with stool with lower abdominal cramping. Hx of recent embolization to right ileocolic branch of the SMA. HH down slightly from admission with 13/40 now 1136. Continue to monitor HH. Clear liquid diet. If pt begins actively bleeding again, obtain stat CT GI bleeding scan. Plan and addendum to follow by Dr Hough. Current Visit: No Gastroenterology - PN: Subj Interval history: CC: GI bleed Pt is seen, awake and alert. States she had an uneventful night. She has had no further overt bleeding. She states she still has some mild abdominal cramping but it is nothing like it was at admission. She is tolerating her diet well. Colonoscopy noted with polyp removal and diverticulosis. Pathology report is pending. Abdomen is soft, nontender. HH is stable at 1237. Pt is noted for discharge home today. ROS: Denies SOB or chest pain Exam (Progress Note) - Constitutional Vitals: Period Temp Pulse Resp BP Sys/Durant Pulse Ox Last 24 Hr 97.5 F-99 F 54-77 14-20 110-164/46-55 95-100 General appearance: normal weight, no acute distress - Head Head exam: Present: normal inspection, normocephalic - Eye Eye exam: Present: other (lids and conjunctiva unremarkable). Absent: scleral icterus - ENT ENT exam: Present: normal exam, normal oropharynx - Neck Neck exam: Present: normal inspection - Respiratory Respiratory exam: Present: clear to auscultation bilaterally. Absent: rales, rhonchi, wheezes - Cardiovascular Cardiovascular exam: Present: regular rate and rhythm. Absent: diastolic murmur , JVD, systolic murmur - GI/Abdominal GI/Abdominal exam: Present: normal bowel sounds, soft. Absent: ascites, distended, mass, organomegaly, tenderness - Extremities Exam Extremities exam: Present: normal inspection, full ROM - Back Exam Back exam: Present: normal inspection - Neurological Exam Neurological exam: Present: alert, oriented X3 - Psychiatric Psychiatric exam: Present: normal affect, normal mood - Skin Skin exam: Present: normal color, warm, dry Results - Labs CBC & BMP: 04/16/17 04:35 04/16/17 04:35 Lab Results: I have reviewed the past 24 hour labs <Anish Hough - Last Filed: 04/16/17 10:30> Exam (Progress Note) - Constitutional Vitals: Period Temp Pulse Resp BP Sys/Durant Pulse Ox Last 24 Hr 97.5 F-99 F 54-77 16-20 110-142/46-54 95-100 Results - Labs CBC & BMP: 04/16/17 04:35 04/16/17 04:35
[2017-04-16] MEDS ORDERED: LIDOCAINE 1%/EPI INJ 20 ML VIAL ONE (10:42)
[2017-04-16] MEDS ORDERED: MIDAZOLAM 2 MG/2 ML VIAL ONE (12:43)
[2017-04-16] MEDS ORDERED: fentaNYL 100 MCG/2 ML VIAL ONE (12:43)
[2017-04-16 13:33] VITALS: BP 127/57
[2017-04-16] MEDS: MULTIVITAMIN (BEROCCA) TABLET PO SCH (14:34)
[2017-04-16] MEDS: LOSARTAN 50 MG TABLET PO SCH (14:34)
[2017-04-16] MEDS: CINACALCET 30 MG TABLET PO SCH (14:40)
--- NOTE | 2017-04-16 15:56 | Operative Note ---
Date of procedure: 04/16/17 Pre-op diagnosis: End-stage renal disease, dialyzing through permanent access Post-op diagnosis: same Procedure: Procedure performed: Removal of left internal jugular tunneled hemodialysis catheter Procedure in detail: After informed consent was obtained, patient was taken operating suite lights upon the operating table. After monitored anesthesia was initiated the left chest and neck were prepped and draped in usual sterile fashion including the existing catheter. After procedural pause local anesthetic and draped in the skin and subcutaneous tissue around the catheter exit site. Incision made and the catheter cuff was dissected free from surrounding tissue and the catheter removed in its entirety. There is good hemostasis with direct pressure. The wound was irrigated and suctioned. The incision was closed with 2-0 nylon suture. Sterile dressings applied. Patient tolerated procedure well. All lap and needle counts correct at the end of the case Anesthesia: MAC Surgeon / Physician: Conor Puentes Estimated blood loss: other (Less than 10 cc) Specimens: other (Old catheter) Condition: stable Disposition: PACU Results - Labs CBC & BMP: 04/16/17 04:35 04/16/17 04:35 Discharge Plan - Discharge Data Disposition: Disch To Home/Self Care - Discharge Medications Continue Insulin Glargine [Lantus] 10 unit SUBCUT QOTHER DAY Metoclopramide HCl 5 mg PO QID PRN PRN Reason: Indigestion Pro Renal D 1 tablet PO DAILY Carvedilol [Coreg] 6.25 mg PO BID tablet cloNIDine TAB [Catapres Tab] 0.1 mg PO TID tablet Calcium Acetate [Phoslo] 1,334 mg PO BID Doxazosin [Cardura] 4 mg PO BID Losartan Potassium [Cozaar] 100 mg PO DAILY HydrOXYzine PAMOATE CAP [Vistaril Cap] 25 mg PO Q6H PRN PRN Reason: Itching glipiZIDE [Glucotrol] 10 mg PO BID Cinacalcet HCl [Sensipar] 60 mg PO BID Pantoprazole Tab [Protonix Tab] 40 mg PO BID Calcium Acetate [Phoslo] 2,001 mg PO TID W/MEALS - Follow Up or Referral - Forms/Instructions Instructions: Gastrointestinal Bleeding (DC), Diverticulosis (DC), High Fiber Diet (DC)
--- NOTE | 2017-04-17 11:26 | Pathology Report from [facility] ---
[facility] ACCESSION # : [id number] PATIENT NAME : Edna Carrillo ORDERING DR : AZAM CHINCHILLA MD CLINICAL HX: Lower GI bleed, anemia POST-OP DX: Same SPECIMEN INFO: Descending colon polyp x 4; sigmoid polyps x 2 GROSS DESCRIPTION: Received in formalin labeled EDNA CARRILLO is an aggregate of catalan mucosal tissue measuring 0.7 x 0.5 cm submitted in one cassette. DIAGNOSIS FOR EDNA CARRILLO: DESCENDING COLON POLYP x 4 & SIGMOID POLYPS x 2 : Hyperplastic polyps and tubular adenoma. COLLECTED DATE: 04/15/2017 [facility] REPORT DATE: 04/16/2017 ELECTRONICALLY SIGNED BY: Ba Santana M.D. 04/16/2017 - 9:52:40 [facility]
--- NOTE | 2017-04-17 11:37 | Pathology Report from [facility] ---
[facility] ACCESSION # : [id number] PATIENT NAME : Edna Carrillo ORDERING DR : Conor Puentes MD CLINICAL HX: ESRD POST-OP DX: Same SPECIMEN INFO: Hemodialysis catheter GROSS DESCRIPTION: Received in formalin labeled ANJALI CARRILLO is a dialysis catheter submitted for gross exam only. DIAGNOSIS FOR EDNA CARRILLO: Dialysis catheter, gross only. COLLECTED DATE: 04/16/2017 [facility] REPORT DATE: 04/17/2017 ELECTRONICALLY SIGNED BY: Ba Santana M.D. 04/17/2017 - 9:58:04 [facility]
== END 2017-04-16 15:10 | disposition home or self-care (01) | DRG 981 ==
LOC: N.ED 13:15 → SUATTDRO 16:46 → N.EDINP 16:46 → N.5E 19:12
PROVIDERS: ADMIT Internal Medicine; ATTEND Internal Medicine

== ENCOUNTER 2017-05-10 15:49 | Inpatient (IN) ==
[2017-05-10] MEDS ORDERED: ONDANSETRON 4 MG/2 ML VIAL IV STA (16:13)
[2017-05-10] MEDS ORDERED: DICYCLOMINE 20 MG/2 ML AMP IM ONE ×2 (16:13→16:50)
[2017-05-10] MEDS ORDERED: METOCLOPRAMIDE 10 MG/2 ML VIAL IV STA (16:13)
--- NOTE | 2017-05-10 16:18 | Emergency Department Note ---
Arrival - Arrival Chief Complaint: Nausea/Vomiting/Diarrhea Stated Complaint: diarrhea ED Nursing Triage Note: Brought in by EMS c/o diarrhea which she states started "months ago"--reports seeing blood in stool. Was seen here yesterday for same c/ o. Mode of Arrival: Stretcher Limitations: No Limitations Source: Patient Time Seen by Provider: 05/10/17 16:13 - History of Present Illness HPI Narrative: This 66-year-old black female presents 24 hours after last being seen in nonurgent care for blood streaking of the bowels. The patient has a several month history of chronic loose stools without nausea, vomiting, chills, or fever. She underwent endoscopy by Dr. Hough 2 weeks ago which was unremarkable and had a technetium scan done yesterday which was negative likewise. Again today her Hemoccult is positive, and she does complain of some clots with the blood streaking although no complaints of melena. She has stable vital signs at the moment and appears in no acute distress. Onset (ago): month(s) (Patient presents several months post onset of symptoms) Date of Last Menstrual Period: menopause Allergies/Adverse Reactions: Allergies Allergy/AdvReac Type Severity Reaction Status Date / Time peanut Allergy Severe HIVES Verified 01/30/17 13:09 PEANUT BUTTER Allergy Severe ANAPHYLAXIS Uncoded 01/28/17 19:42 Home Medications: Home Medications Medication Instructions Recorded Confirmed Type Insulin Glargine [Lantus] 10 unit SUBCUT QOTHER DAY 06/06/15 04/13/17 History Metoclopramide HCl 5 mg PO QID PRN 11/30/16 04/13/17 History Pantoprazole Tab [Protonix Tab] 40 mg PO BID 12/30/16 04/13/17 History Pro Renal D 1 tablet PO DAILY 01/28/17 04/13/17 History Carvedilol [Coreg] 6.25 mg PO BID tablet 02/20/17 04/13/17 Rx cloNIDine TAB [Catapres Tab] 0.1 mg PO TID tablet 02/20/17 04/13/17 Rx Calcium Acetate [Phoslo] 1,334 mg PO BID 04/13/17 04/13/17 History Calcium Acetate [Phoslo] 2,001 mg PO TID W/MEALS 04/13/17 04/13/17 History Cinacalcet HCl [Sensipar] 60 mg PO BID 04/13/17 04/13/17 History Doxazosin [Cardura] 4 mg PO BID 04/13/17 04/13/17 History HydrOXYzine PAMOATE CAP [Vistaril 25 mg PO Q6H PRN 04/13/17 04/13/17 History Cap] Losartan Potassium [Cozaar] 100 mg PO DAILY 04/13/17 04/13/17 History glipiZIDE [Glucotrol] 10 mg PO BID 04/13/17 04/13/17 History Review of System - Review of System 12 point system: reviewed and no additional remarkable complaints except as stated - Review of System Gastrointestinal: Present: as per HPI Medical,Surgical,& Family Hx - Medical History Cardio: History of: CAD, Hypertension, [place] (2007/2008), Cardiovascular Problems Psychological: No history of: Behavior Problems Neurology: No history of: Seizures HEENT: History of: Ear Problem (GLASSES), Eye Problem, Dental Problems Endocrine: History of: Diabetes Mellitus (IDDM), Diabetes Mellitus (NIDDM) Respiratory: No history of: Respiratory Problems (FLU VAC- YES; PNEU VAC- YES.) Renal: History of: Dialysis (MWF), Renal Failure Genitourinary: History of: Kidney Stones Gastrointestinal: History of: Diverticulitis/ Diverticulosis, GERD, Gastrointestinal Bleed, Polyps, GI Problems (GI bleeding) Musculoskeletal: History of: Amputation (right BKA) Hematology: History of: Anemia Other: History of: Anesthesia Reactions (NAUSEA AND VOMITING) - Surgical History Cardiac Surgeries: Sugical HX of: Cardiac Surgery (CABG 2008) Thoracic Surgeries: Patient denies;: Organ Transplant, Lobectomy Neurologic Surgeries: Patient denies: Neurologic Surgery HEENT Surgeries: Surgical HX of: Eye Surgery (CATARACTS) Patient denies: Tonsilectomy & Adenoidectomy Abdominal Surgeries: Surgical HX of: Cholecystectomy, Colonoscopy, EGD Reproductive Surgeries: Surgical HX of;: Hysterectomy, Tubal Ligation Patient denies;: Gynecologic Surgery Orthopedic Surgeries: Surgical HX of;: Implanted Devices (fistula rt upper arm, old graft in left arm) - Family History Family History: Reports;: Family Diabetes (PARENTS), Family Heart Disease, Family Hypertension, Family Stroke (MOM) - Social History Smoking Status: Never smoker Frequency of Alcohol Use: None Type of Drug Use: None Exam Physical Examination: GENERAL: Well developed, well nourished elderly black female in no acute distress. HEENT: Normocephalic. No trauma. Moist mucous membranes. EOMI. PERRLA. ENT NML NECK: Supple. No adenopathy. CARDIAC: Regular. No murmurs. Heart rate 58 CHEST: Clear to auscultation. No respiratory distress. O2 sat 99% ABDOMEN: Soft. Nontender. Active bowel sounds. Benign abdomen.: Hemoccult positive EXTREMITIES: No trauma. Normal ROM. No pedal edema. Right thigh fistula with good thrill noted as well as right BKA SKIN: No diaphoresis. No rash. NEURO: Alert. Neuro intact no focal deficits. Vital Signs: Vital Signs Temperature 97.4 F L 05/10/17 15:55 Pulse Rate 69 05/10/17 16:30 Respiratory Rate 17 05/10/17 16:30 Blood Pressure 145/73 05/10/17 16:30 O2 Sat by Pulse Oximetry 98 05/10/17 16:30 Course - Reevaluation(s) Reevaluation #1: Discussed with patient that the fact that she had some much blood loss and 24 hours she would require hospitalization. - Consultations Consultation #1: Discussed with the hospitalist service will admit for further evaluation treatment. Results - Labs CBC & BMP: 05/10/17 16:13 05/10/17 16:13 Labs: I reviewed the laboratory noted the considerable drop in hematocrit since yesterday. Disposition Clinical Impression: Persistent lower GI bleeding Case discussed with: patient Disposition: Still a Patient Condition: Guarded Time of Disposition: 17:04
[2017-05-10 16:21] LABS: Basophils % 0.4 % (0.0-0.8); Eosinophils # 0.2 10*3/uL (0.0-0.87); Hematocrit 28.4 VOL% (35.7-47.0); Hemoglobin 9.3 GM/DL (12.0-16.0); Immature Granulocytes % 0.2 %; Immature Granulocytes Absolute 0.01 #; Lymphocytes # 0.8 10*3/uL (1.4-4.0); Mean Corpuscular HGB Conc 32.7 GM/DL (32-36); Mean Corpuscular Hemoglobin 30 PG (27-34); Mean Corpuscular Volume 90.2 FL (87-102); Mean Platelet Volume 10.6 FL (9.6-12.0); Monocytes # 0.8 10*3/uL (0.11-0.8); Monocytes % 16.6 % (1.7-12.7); Neutrophils % 62.8 % (38.7-73.9); Platelet Count 187 T/CUMM (130-400); Red Blood Count 3.15 MC/CUMM (3.8-5.5); Red Cell Distribution Width 14.7 % (9.3-17.3); White Blood Count 4.8 T/CUMM (4-12)
[2017-05-10] MEDS ORDERED: ONDANSETRON 4 MG/2 ML VIAL ONE (16:49)
[2017-05-10] MEDS ORDERED: METOCLOPRAMIDE 10 MG/2 ML VIAL ONE (16:49)
[2017-05-10 16:50] LABS: Alanine Aminotransferase 11 U/L (13-56); Albumin 2.8 G/DL (3.4-5.0); Alkaline Phosphatase 150 U/L (45-117); Aspartate Amino Transferase 15 U/L (0-37); Bilirubin,Total < 0.39 MG/DL (0.2-1.0); Blood Urea Nitrogen 45 MG/DL (7-18); Calcium 7.6 MG/DL (8.5-10.1); Glucose 128 MG/DL (74-106); Potassium 4.3 MMOL/L (3.5-5.1); Sodium 136 MMOL/L (136-145); Total Protein 6.3 G/DL (6.4-8.3)
--- NOTE | 2017-05-10 17:48 | Hospitalist History & Physical ---
Assessment and Plan - Time spent with patient Time spent with patient: Greater than 30 minutes (1) Lower gastrointestinal hemorrhage Status: Resolved Assessment and plan: 66 year-old female presents with recurrent lower GI bleed. Patient was just seen in ED on yesterday a H&H of 10.9 and 33.4. H&H today is 9.3 and 28.4. Admit for observation. Serial H&H's. Type and screen. CBC, PT, PTT/INR in a.m. IV fluids. Consult GI. Colonoscopy on previous visit revealed no source of active bleeding. Current Visit: No (2) ESRD on dialysis Status: Chronic Assessment and plan: BUN 45 creatinine 8.80. Consult nephrology for continuing dialysis. Current Visit: No (3) Hypertension Status: Chronic Assessment and plan: Currently well controlled on home medications. Continue current treatment plan. Current Visit: No (4) GERD (gastroesophageal reflux disease) Status: Acute Assessment and plan: Continue PPI therapy Current Visit: No (5) History of diverticulosis Status: Acute Current Visit: No (6) Diabetes mellitus Status: Chronic Assessment and plan: Hemoglobin A1c as of 03/11/2017 5.4%. Accu-Cheks ACHS. Sliding scale insulin per protocol. Current Visit: No Qualifiers: Diabetes mellitus type: type 2 Chronic kidney disease stage: on chronic dialysis History of Present Illness Chief complaint: bloody stool History of present illness: Ms. Carrillo is a 66 year old -[place] female with a past medical history of CABG (2008), CAD, hypertension, diabetes mellitus, ESRD on HD, right BKA, GERD, recurrent GI bleed who presents to the ED today less than 24 hours after her last visit with complaints of bloody stool having onset this morning. The patient was just seen in the nonurgent care on yesterday with similar complaints. She was sent home and told to return if she noticed any bleeding or signs and symptoms of anemia. She reports that she noticed a crampy abdominal pain and a "leaky" feeling. She rushed to the bathroom where she noticed her underwear was soiled with bloody stool. She reports that the cramping pain subsided after defecating. She returns to the ED today because of this blood in her stool. On exam, she confirms a slight headache but otherwise denies any pain. She continues to deny blurry vision, chest pain, shortness of breath, hematemesis, nausea or vomiting, abdominal pain, melena, large volumes of bright red blood, syncope, numbness or tingling. Lab work reveals: WBC 4.8, hemoglobin 9.3, hematocrit 28.4, sodium 136, potassium 4.3, chloride 97, carbon dioxide 30, BUN 45, creatinine 8.80, serum glucose 128, calcium 7.6, AST 15, ALT 11, alkaline phosphatase 150, albumin 2.8. The patient was most recently admitted in March 2017. During that visit, the patient was assessed by gastroenterology and underwent colonoscopy with hot biopsy and polypectomy 6 however no active source of bleeding was seen. Pathology report from biopsies revealed hyperplastic polyps and tubular adenoma. This case has been discussed with Dr. Renee, ER physician, and Dr. Rios, admitting physician, and the patient will be admitted to the hospital medicine for evaluation and treatment. CODE STATUS has been discussed; patient is a FULL CODE. Medications have been reviewed and reconciled. We will consult gastroenterology and nephrology for assistance during his stay. Home Medications Medication Instructions Recorded Confirmed Type Insulin Glargine [Lantus] 10 unit SUBCUT QOTHER DAY 06/06/15 04/13/17 History Metoclopramide HCl 5 mg PO QID PRN 11/30/16 04/13/17 History Pantoprazole Tab [Protonix Tab] 40 mg PO BID 12/30/16 04/13/17 History Pro Renal D 1 tablet PO DAILY 01/28/17 04/13/17 History Carvedilol [Coreg] 6.25 mg PO BID tablet 02/20/17 04/13/17 Rx cloNIDine TAB [Catapres Tab] 0.1 mg PO TID tablet 02/20/17 04/13/17 Rx Calcium Acetate [Phoslo] 1,334 mg PO BID 04/13/17 04/13/17 History Calcium Acetate [Phoslo] 2,001 mg PO TID W/MEALS 04/13/17 04/13/17 History Cinacalcet HCl [Sensipar] 60 mg PO BID 04/13/17 04/13/17 History Doxazosin [Cardura] 4 mg PO BID 04/13/17 04/13/17 History HydrOXYzine PAMOATE CAP [Vistaril 25 mg PO Q6H PRN 04/13/17 04/13/17 History Cap] Losartan Potassium [Cozaar] 100 mg PO DAILY 04/13/17 04/13/17 History glipiZIDE [Glucotrol] 10 mg PO BID 04/13/17 04/13/17 History Allergies Allergy/AdvReac Type Severity Reaction Status Date / Time peanut Allergy Severe HIVES Verified 01/30/17 13:09 PEANUT BUTTER Allergy Severe ANAPHYLAXIS Uncoded 01/28/17 19:42 Medical,Surgical,& Family Hx - Medical History Cardio: History of: CAD, Hypertension, [place] (2007/2008), Cardiovascular Problems Psychological: No history of: Behavior Problems Neurology: No history of: Seizures HEENT: History of: Ear Problem (GLASSES), Eye Problem, Dental Problems Endocrine: History of: Diabetes Mellitus (IDDM), Diabetes Mellitus (NIDDM) Respiratory: No history of: Respiratory Problems (FLU VAC- YES; PNEU VAC- YES.) Renal: History of: Dialysis (MWF), Renal Failure Genitourinary: History of: Kidney Stones Gastrointestinal: History of: Diverticulitis/ Diverticulosis, GERD, Gastrointestinal Bleed, Polyps, GI Problems (GI bleeding) Musculoskeletal: History of: Amputation (right BKA) Hematology: History of: Anemia Other: History of: Anesthesia Reactions (NAUSEA AND VOMITING) - Surgical History Cardiac Surgeries: Sugical HX of: Cardiac Surgery (CABG 2008) Thoracic Surgeries: Patient denies;: Organ Transplant, Lobectomy Neurologic Surgeries: Patient denies: Neurologic Surgery HEENT Surgeries: Surgical HX of: Eye Surgery (CATARACTS) Patient denies: Tonsilectomy & Adenoidectomy Abdominal Surgeries: Surgical HX of: Cholecystectomy, Colonoscopy, EGD Reproductive Surgeries: Surgical HX of;: Hysterectomy, Tubal Ligation Patient denies;: Gynecologic Surgery Orthopedic Surgeries: Surgical HX of;: Implanted Devices (fistula rt upper arm, old graft in left arm) - Family History Family History: Reports;: Family Diabetes (PARENTS), Family Heart Disease, Family Hypertension, Family Stroke (MOM) - Social History Smoking Status: Never smoker Frequency of Alcohol Use: None Type of Drug Use: None Marital Status: Single Lives With:: Alone Functional capacity: wheelchair bound 12 point system: reviewed and no additional remarkable complaints except as stated Exam - Constitutional Vitals: Period Temp Pulse Resp BP Sys/Durant Pulse Ox Last 24 Hr 97.4 F-97.4 F 58-69 16-17 145-145/49-73 98-99 Exam: General appearance: overweight, no acute distress - Head Head exam: Present: normocephalic, atraumatic - Eye Eye exam: Present: EOMI. Absent: conjunctival injection, nystagmus Pupils: Present: LOUIS, normal accommodation - ENT ENT exam: Present: normal exam, normal external ear exam - Neck Neck exam: Present: normal inspection. Absent: lymphadenopathy, tenderness, thyromegaly - Respiratory Respiratory exam: Present: clear to auscultation bilaterally. Absent: rales, rhonchi, wheezes - Cardiovascular Cardiovascular exam: Present: regular rate and rhythm. Absent: carotid bruit, gallop, rubs - GI/Abdominal GI/Abdominal exam: Present: normal bowel sounds. Absent: ascites, distended, mass - Extremities Exam Extremities exam: Present: normal inspection, normal capillary refill. Absent: edema - Back Exam Back exam: Absent: CVA tenderness (L), CVA tenderness (R) - Neurological Exam Neurological exam: Present: alert, oriented X3, CN II-XII intact, reflexes normal - Psychiatric Psychiatric exam: Present: normal affect, normal mood - Skin Skin exam: Present: normal color, warm, dry Results - Labs CBC & BMP: 05/10/17 16:13 05/10/17 16:13 Lab Results: I have reviewed the past 24 hour labs
[2017-05-10 22:21] LABS: Band Neutrophils 2 % (0-10); Eosinophils 4 % (0-10); Lymphocytes 14 % (20-55); Platelet Estimate Normal; Segmented Neutrophils 68 % (50-85); Total Cells Counted 100
[2017-05-11 06:11] LABS: Basophils % 0.5 % (0.0-0.8); Eosinophils # 0.2 10*3/uL (0.0-0.87); Eosinophils % 5.4 % (0.00-10.9); Immature Granulocytes % 0.3 %; Immature Granulocytes Absolute 0.01 #; Lymphocytes # 0.9 10*3/uL (1.4-4.0); Lymphocytes % 21.9 % (21.3-54.2); Mean Corpuscular HGB Conc 32.1 GM/DL (32-36); Mean Corpuscular Hemoglobin 29 PG (27-34); Mean Corpuscular Volume 90.3 FL (87-102); Mean Platelet Volume 11.1 FL (9.6-12.0); Monocytes # 0.6 10*3/uL (0.11-0.8); Monocytes % 14.9 % (1.7-12.7); Neutrophils # 2.2 10*3/uL (1.4-7.4); Platelet Count 195 T/CUMM (130-400); Red Cell Distribution Width 14.7 % (9.3-17.3); White Blood Count 3.9 T/CUMM (4-12)
[2017-05-11 06:22] LABS: PT Patient Result 10.9 SECS
--- NOTE | 2017-05-11 08:34 | Hospitalist Progress Note ---
Assessment and Plan (1) GI bleeding Problem details: possible intermittent bleeding in the right colon per the NM and CTA studies, history of intermittent GI bleeding in the past but negative Endo except for diverticulosis Status: Resolved Assessment and plan: Impression: 1. Lower GI bleed, source not known 2. End-stage renal disease 3. Hypertension 4. Type II DM Plan: I will resume her home medications as indicated. Medication reconciliation has not yet been done. Await nephrology and GI opinions. This note was completed using [employer] voice recognition software. There may be experience design director errors as a result. Current Visit: No Hospitalist: Subjective Interval history: Follow-up lower GI bleed. Patient was admitted for evaluation of what appears to be a lower GI bleed. She has known end-stage renal disease on dialysis. Nephrology and GI have been consulted, and we are awaiting their input. The patient offers no complaints. She is status post a right sided BKA. She says that her prosthesis does not fit well, so she gets around her house with either a walker or wheelchair. Exam - Constitutional Vitals: Period Temp Pulse Resp BP Sys/Durant Pulse Ox Last 24 Hr 97 F-97.7 F 58-69 16-20 134-177/49-73 96-100 Vital signs are noted above. Heart is regular with a soft systolic ejection murmur. Lungs are clear with no rales wheezes. Abdomen is soft without mass or tenderness. She has a right sided BKA. She is awake and alert. Results - Labs CBC & BMP: 05/11/17 04:56 05/10/17 16:13 Lab Results: I have reviewed the past 24 hour labs
[2017-05-11] MEDS ORDERED: METOCLOPRAMIDE 5 MG TABLET PO PRN (08:35)
[2017-05-11] MEDS ORDERED: DOXAZOSIN 2 MG TABLET PO SCH (09:00)
--- NOTE | 2017-05-11 09:42 | Gastrointestinal Consult Note ---
Assessment and Plan (1) GI bleeding Problem details: possible intermittent bleeding in the right colon per the NM and CTA studies, history of intermittent GI bleeding in the past but negative Endo except for diverticulosis Status: Resolved Assessment and plan: 05/11-2-3 day history of bright red rectal bleeding without abdominal pain or other associated symptoms. Multiple history of bleeding in the past as noted below. H&H is stable at 9/28. Episode of bright red bleeding last night. Would continue to monitor today due to history of recurring GI bleeds and advance diet. Recheck H&H tomorrow morning. GI bleeding scan if bleeding recurs during this hospitalization. Plan an addendum to followed by Dr. French (on-call for Dr. Hough at this time). Current Visit: No History of Present Illness Chief complaint: Rectal bleed History of present illness: Ms. Carrillo is a 66 year old female who was admitted to the hospital on yesterday afternoon following 2-3 day history of rectal bleeding. She has a prior history of CABG in 2008, CAD, end-stage renal disease with dialysis on Thursday, Thursday, Thursday, GI bleeds, hypertension, diabetes. Patient has a prior history of multiple episodes of rectal bleeding in the past. She states that she was in her usual state of health until 2-3 days ago when she had another onset of bright red blood noted in her stools. She states that she has had this with every bowel movement since onset however she was encouraged by her dialysis nurse on yesterday to come in in have this further evaluated. Patient was noted to also come to the emergency room on Thursday afternoon with complaints of bleeding and was heme positive at that time and a GI bleeding scan was done which showed no active bleeding. H&H at that time was 10/ however noted upon admission on Thursday she had dropped to 9/28. Patient states that she has had no abdominal pain, nausea or vomiting associated with this. She states that she has had no recent weight loss. She states that she had had bright red blood mixed in with the stool with her bowel movements but no bleeding in between bowel movements. Patient states that the bleeding she has had this time has been less than her prior episodes. She did pass some dark red clots initially. Patient was discharged last month after another episode of GI bleeding which resolved on its own at that time. She did undergo colonoscopy during that visit with only findings of polyps (hyperplastic and tubular adenoma) and diverticulosis with no bleeding etiology seen. She was also hospitalized in February with recurrent GI bleeding and at that time underwent a nuclear med GI bleeding scan and was found to have localized at the SMA and underwent angiography with Dr. Rodríguez at that time. Over the last year she has received a total of 9 units of packed red blood cells for her GI bleeding episodes however none has been required on this admission. H&H is holding stable at 06/18. Since admission patient states that her bleeding has decreased at this time with the last time this was noticed was yesterday evening and she states it was a definite decrease from the initial onset. She does not take anticoagulants or NSAIDs. States she takes her Protonix twice a day. Her last upper endoscopy was done in 2015 with negative findings. Patient is seen by Dr. Hough however will be followed by Dr. French at this time due to Dr. Hough out of town. Home Medications Medication Instructions Recorded Confirmed Type Insulin Glargine [Lantus] 10 unit SUBCUT QOTHER DAY 06/06/15 05/10/17 History Metoclopramide HCl 5 mg PO QID PRN 11/30/16 05/10/17 History Pantoprazole Tab [Protonix Tab] 40 mg PO BID 12/30/16 05/10/17 History Pro Renal D 1 tablet PO DAILY 01/28/17 05/10/17 History Calcium Acetate [Phoslo] 2 tablet PO BID 04/13/17 05/10/17 History Calcium Acetate [Phoslo] 3 tablet PO TID W/MEALS 04/13/17 05/10/17 History Doxazosin [Cardura] 2 mg PO BID 04/13/17 05/10/17 History Losartan Potassium [Cozaar] 100 mg PO DAILY 04/13/17 05/10/17 History glipiZIDE [Glucotrol] 10 mg PO BID 04/13/17 05/10/17 History Carvedilol [Coreg] 6.25 mg PO BID 05/10/17 05/10/17 History Cinacalcet [Sensipar] 30 mg PO BID 05/10/17 05/10/17 History cloNIDine TAB [Catapres Tab] 0.1 mg PO TID 05/10/17 05/10/17 History Allergies Allergy/AdvReac Type Severity Reaction Status Date / Time peanut Allergy Severe HIVES Verified 01/30/17 13:09 PEANUT BUTTER Allergy Severe ANAPHYLAXIS Uncoded 01/28/17 19:42 Medical,Surgical,& Family Hx - Medical History Cardio: History of: CAD, Hypertension, [place] (2007/2008), Cardiovascular Problems Psychological: No history of: Behavior Problems Neurology: No history of: Seizures HEENT: History of: Ear Problem (GLASSES), Eye Problem, Dental Problems Endocrine: History of: Diabetes Mellitus (IDDM), Diabetes Mellitus (NIDDM) Respiratory: No history of: Respiratory Problems (FLU VAC- YES; PNEU VAC- YES.) Renal: History of: Dialysis (MWF), Renal Failure Genitourinary: History of: Kidney Stones Gastrointestinal: History of: Diverticulitis/ Diverticulosis, GERD, Gastrointestinal Bleed, Polyps, GI Problems (GI bleeding) Musculoskeletal: History of: Amputation (right BKA) Hematology: History of: Anemia Other: History of: Anesthesia Reactions (NAUSEA AND VOMITING) - Surgical History Cardiac Surgeries: Sugical HX of: Cardiac Surgery (CABG 2008) Thoracic Surgeries: Patient denies;: Organ Transplant, Lobectomy Neurologic Surgeries: Patient denies: Neurologic Surgery HEENT Surgeries: Surgical HX of: Eye Surgery (CATARACTS) Patient denies: Tonsilectomy & Adenoidectomy Abdominal Surgeries: Surgical HX of: Cholecystectomy, Colonoscopy, EGD Reproductive Surgeries: Surgical HX of;: Hysterectomy, Tubal Ligation Patient denies;: Gynecologic Surgery Orthopedic Surgeries: Surgical HX of;: Implanted Devices (fistula rt upper arm, old graft in left arm) - Family History Family History: Reports;: Family Diabetes (PARENTS), Family Heart Disease, Family Hypertension, Family Stroke (MOM) - Social History Smoking Status: Never smoker Frequency of Alcohol Use: None Type of Drug Use: None 12 point system: reviewed and no additional remarkable complaints except as stated - Constitutional Constitutional: Present: as per HPI - EENT Eyes: Present: as per HPI Ears: Present: as per HPI Nose, mouth and throat: Present: as per HPI - Cardiovascular Cardiovascular: Present: as per HPI - Respiratory Respiratory: Present: as per HPI - Gastrointestinal Gastrointestinal: Present: as per HPI, hematochezia - Genitourinary Genitourinary: Present: as per HPI - Musculoskeletal Musculoskeletal: Present: as per HPI - Neurological Neurological: Present: as per HPI - Psychiatric Psychiatric: Present: as per HPI - Endocrine Endocrine: Present: as per HPI Exam - Constitutional Vitals: Period Temp Pulse Resp BP Sys/Durant Pulse Ox Last 24 Hr 97 F-97.7 F 58-69 16-20 134-177/49-73 96-100 General appearance: normal weight, no acute distress - Head Head exam: Present: normal inspection, normocephalic - Eye Eye exam: Present: other (Lids and conjunctive are unremarkable). Absent: scleral icterus - ENT ENT exam: Present: normal exam, normal oropharynx - Neck Neck exam: Present: normal inspection - Respiratory Respiratory exam: Present: clear to auscultation bilaterally. Absent: rales, rhonchi, wheezes - Cardiovascular Cardiovascular exam: Present: regular rate and rhythm. Absent: diastolic murmur , JVD, systolic murmur - GI/Abdominal GI/Abdominal exam: Present: normal bowel sounds, soft. Absent: ascites, distended, mass, organomegaly, tenderness - Back Exam Back exam: Present: normal inspection - Neurological Exam Neurological exam: Present: alert, oriented X3 - Psychiatric Psychiatric exam: Present: normal affect, normal mood - Skin Skin exam: Present: normal color, warm, dry Results - Labs CBC & BMP: 05/11/17 04:56 05/10/17 16:13 Lab Results: I have reviewed the past 24 hour labs
[2017-05-11] MEDS: LOSARTAN 50 MG TABLET PO SCH (09:48)
[2017-05-11] MEDS: glipiZIDE 10 MG TABLET PO SCH ×2 (09:48→20:49)
[2017-05-11] MEDS: CARVEDILOL 6.25 MG TABLET PO SCH ×2 (09:49→20:48)
[2017-05-11] MEDS: cloNIDine 0.1 MG TABLET PO SCH ×3 (09:49→20:48)
[2017-05-11] MEDS: PANTOPRAZOLE 40 MG TABLET PO SCH ×2 (09:49→20:48)
[2017-05-11] MEDS: CINACALCET 30 MG TABLET PO SCH ×2 (09:49→20:49)
--- NOTE | 2017-05-11 11:19 | Nephrology Consult Note ---
History of Present Illness Chief complaint: ESRD, GI bleed History of present illness: Ms. Carrillo is a 66 year old female with a history of recurrent GI bleeding she underwent embolization of a site of bleeding in the past but this is her second GI bleed since that episode. Previous GI workups of demonstrated polyps that have been removed but no obvious bleeding source. The previous bleeding source was localized with bleeding scan and then arteriography followed by embolization. She is been stable on hemodialysis for some time other than her GI bleeding. On physical exam she is in no distress in her neck without jugular venous distention or heart without rub or gallop. Extremities without edema. Impression recurrent GI bleed #2 end-stage renal disease. Plan she does not need transfusion at this point we can support with transfusion during or off dialysis as necessary. Home Medications Medication Instructions Recorded Confirmed Type Insulin Glargine [Lantus] 10 unit SUBCUT QOTHER DAY 06/06/15 05/10/17 History Metoclopramide HCl 5 mg PO QID PRN 11/30/16 05/10/17 History Pantoprazole Tab [Protonix Tab] 40 mg PO BID 12/30/16 05/10/17 History Pro Renal D 1 tablet PO DAILY 01/28/17 05/10/17 History Calcium Acetate [Phoslo] 2 tablet PO BID 04/13/17 05/10/17 History Calcium Acetate [Phoslo] 3 tablet PO TID W/MEALS 04/13/17 05/10/17 History Doxazosin [Cardura] 2 mg PO BID 04/13/17 05/10/17 History Losartan Potassium [Cozaar] 100 mg PO DAILY 04/13/17 05/10/17 History glipiZIDE [Glucotrol] 10 mg PO BID 04/13/17 05/10/17 History Carvedilol [Coreg] 6.25 mg PO BID 05/10/17 05/10/17 History Cinacalcet [Sensipar] 30 mg PO BID 05/10/17 05/10/17 History cloNIDine TAB [Catapres Tab] 0.1 mg PO TID 05/10/17 05/10/17 History Allergies Allergy/AdvReac Type Severity Reaction Status Date / Time peanut Allergy Severe HIVES Verified 01/30/17 13:09 PEANUT BUTTER Allergy Severe ANAPHYLAXIS Uncoded 01/28/17 19:42 Medical,Surgical,& Family Hx - Medical History Cardio: History of: CAD, Hypertension, [place] (2007/2008), Cardiovascular Problems Psychological: No history of: Behavior Problems Neurology: No history of: Seizures HEENT: History of: Ear Problem (GLASSES), Eye Problem, Dental Problems Endocrine: History of: Diabetes Mellitus (IDDM), Diabetes Mellitus (NIDDM) Respiratory: No history of: Respiratory Problems (FLU VAC- YES; PNEU VAC- YES.) Renal: History of: Dialysis (MWF), Renal Failure Genitourinary: History of: Kidney Stones Gastrointestinal: History of: Diverticulitis/ Diverticulosis, GERD, Gastrointestinal Bleed, Polyps, GI Problems (GI bleeding) Musculoskeletal: History of: Amputation (right BKA) Hematology: History of: Anemia Other: History of: Anesthesia Reactions (NAUSEA AND VOMITING) - Surgical History Cardiac Surgeries: Sugical HX of: Cardiac Surgery (CABG 2008) Thoracic Surgeries: Patient denies;: Organ Transplant, Lobectomy Neurologic Surgeries: Patient denies: Neurologic Surgery HEENT Surgeries: Surgical HX of: Eye Surgery (CATARACTS) Patient denies: Tonsilectomy & Adenoidectomy Abdominal Surgeries: Surgical HX of: Cholecystectomy, Colonoscopy, EGD Reproductive Surgeries: Surgical HX of;: Hysterectomy, Tubal Ligation Patient denies;: Gynecologic Surgery Orthopedic Surgeries: Surgical HX of;: Implanted Devices (fistula rt upper arm, old graft in left arm) - Family History Family History: Reports;: Family Diabetes (PARENTS), Family Heart Disease, Family Hypertension, Family Stroke (MOM) - Social History Smoking Status: Never smoker Frequency of Alcohol Use: None Type of Drug Use: None Review of Systems 12 point system: reviewed and no additional remarkable complaints except as stated Exam - Vital Signs Vital signs: Period Temp Pulse Resp BP Sys/Durant Pulse Ox Last 24 Hr 97 F-97.7 F 58-69 16-20 134-177/49-73 96-100 - General Appearance General appearance: well-developed, well-nourished, appears started age Neck: no JVD, no thyromegaly, no carotid bruit, supple Respiratory: no kyphosis, no scoliosis Cardiology: no murmurs, no rub, no gallops, no edema, regular rate, regular rhythm, normal S1, normal S2 Integumentary: no rash, warm and dry Neurologic: no focal deficit, no asterixis, alert and oriented x3, reflexes 2+ and symmetric, gait normal, strength 5/5 Musculoskeletal: no deformities, no erythema, no cyanosis, no clubbing Psychiatric: mood/affect appropriate, cooperative Results - Labs CBC & BMP: 05/11/17 04:56 05/10/17 16:13 Specialty Discharge - Follow Up or Referrals - Speciality Discharge Instructions Nephrology Instructions: Hemodialysis mw
--- NOTE | 2017-05-11 11:21 | Dialysis Note ---
Dialysis Note - Dialysis Note Ms. Carrillo is seen during her hemodialysis. She is tolerating dialysis well plan is to continue to support with dialysis while here
[2017-05-11] MEDS ORDERED: MULTIVITAMIN (BEROCCA) TABLET PO SCH (12:00)
[2017-05-11] MEDS: CALCIUM ACETATE 667 MG CAPSULE PO SCH (17:08)
[2017-05-11] MEDS: DOXAZOSIN 1 MG TABLET PO SCH (20:49)
[2017-05-12 05:16] LABS: PT Patient Result 11.1 SECS
[2017-05-12 08:25] LABS: Hematocrit 29.6 VOL% (35.7-47.0); Hemoglobin 9.6 GM/DL (12.0-16.0)
--- NOTE | 2017-05-12 08:41 | Nephrology Progress Note ---
Nephrology - PN: Subj Interval history: Ms. Carrillo is seen in follow-up of her end-stage renal disease. She is doing well and has had no further GI bleeding since admission. There are about 2 episodes of hematochezia which stopped spontaneously. Thinking is that this likely is related to her diverticular disease. She is stable and has required no blood transfusion this admission. She is eating and tolerating it well. Her next dialysis is tomorrow. If she is hospitalized will dialyze here if not we can dialyze in [facility]. Exam (PN)-Nephrology - Vital Signs Vital signs: Period Temp Pulse Resp BP Sys/Durant Pulse Ox Last 24 Hr 96.5 F-98.3 F 56-66 16-20 123-174/57-70 97-100 - Lab 05/12/17 04:44 05/10/17 16:13 Most recent lab results Calcium 7.6 MG/DL (8.5-10.1) L 05/10/17 16:13
[2017-05-12] MEDS: glipiZIDE 10 MG TABLET PO SCH (09:00)
[2017-05-12] MEDS ORDERED: PRORENAL D PO SCH (09:00)
[2017-05-12] MEDS: DOXAZOSIN 1 MG TABLET PO SCH (09:01)
[2017-05-12] MEDS: cloNIDine 0.1 MG TABLET PO SCH ×2 (09:01→16:18)
[2017-05-12] MEDS: LOSARTAN 50 MG TABLET PO SCH (09:01)
[2017-05-12] MEDS: CARVEDILOL 6.25 MG TABLET PO SCH (09:02)
[2017-05-12] MEDS: PANTOPRAZOLE 40 MG TABLET PO SCH (09:02)
[2017-05-12] MEDS: CINACALCET 30 MG TABLET PO SCH (09:02)
[2017-05-12] MEDS: CALCIUM ACETATE 667 MG CAPSULE PO SCH (09:02)
--- NOTE | 2017-05-12 09:55 | Gastrointestinal Progress Note ---
Assessment and Plan (1) GI bleeding Problem details: possible intermittent bleeding in the right colon per the NM and CTA studies, history of intermittent GI bleeding in the past but negative Endo except for diverticulosis Status: Resolved Assessment and plan: 05/12-no further rectal bleeding. H&H is holding at 06/19. tolerating diet well. No complaints of pain. Plan addendum follow Dr. French. 05/11-2-3 day history of bright red rectal bleeding without abdominal pain or other associated symptoms. Multiple history of bleeding in the past as noted below. H&H is stable at 06/18. Episode of bright red bleeding last night. Would continue to monitor today due to history of recurring GI bleeds and advance diet. Recheck H&H tomorrow morning. GI bleeding scan if bleeding recurs during this hospitalization. Plan an addendum to followed by Dr. French (on-call for Dr. Hough at this time). Current Visit: No Gastroenterology - PN: Subj Interval history: CC: GI bleeding Pt is awake and alert sitting up in bed. States she had an uneventful night and rested well. She has had no further bleeding since yesterday. She is tolerating her diet well at this time. Denies any abdominal pain, nausea or vomiting. HH is stable at 06/19. Abdomen is soft, nontender. ROS: Denies SOB or chest pain Exam (Progress Note) - Constitutional Vitals: Period Temp Pulse Resp BP Sys/Durant Pulse Ox Last 24 Hr 96.5 F-98.3 F 56-66 16-20 122-174/53-70 97-100 - Other Additional findings: General appearance: normal weight, no acute distress - Head Head exam: Present: normal inspection, normocephalic - Eye Eye exam: Present: other (Lids and conjunctive are unremarkable). Absent: scleral icterus - ENT ENT exam: Present: normal exam, normal oropharynx - Neck Neck exam: Present: normal inspection - Respiratory Respiratory exam: Present: clear to auscultation bilaterally. Absent: rales, rhonchi, wheezes - Cardiovascular Cardiovascular exam: Present: regular rate and rhythm. Absent: diastolic murmur , JVD, systolic murmur - GI/Abdominal GI/Abdominal exam: Present: normal bowel sounds, soft. Absent: ascites, distended, mass, organomegaly, tenderness - Back Exam Back exam: Present: normal inspection - Neurological Exam Neurological exam: Present: alert, oriented X3 - Psychiatric Psychiatric exam: Present: normal affect, normal mood - Skin Skin exam: Present: normal color, warm, dry Results - Labs CBC & BMP: 05/12/17 04:44 05/10/17 16:13 Lab Results: I have reviewed the past 24 hour labs
[2017-05-12 11:29] VITALS: BP 140/60
--- NOTE | 2017-05-12 13:32 | Discharge Summary ---
Hospital Course - Hospital Course Hospital Course: Discharge diagnosis 1. GI bleed 2. End-stage renal disease 3. Type II DM 4. Hypertension The patient presented for an upper GI bleed. She has end-stage renal disease, and is followed by nephrology. She was seen by nephrology and GI. She continued dialysis in the hospital. GI recommended discharge. Medication reconciliation has been performed. Renal diet. Activity as tolerated. Follow-up with local physician. This note was completed using [employer] voice recognition software. There may be clay roaster errors as a result. Diagnosis - Discharge Diagnosis (1) GI bleeding Status: Resolved Discharge Plan - Discharge Data Disposition: Disch To Home/Self Care Condition at Discharge: Stable Discharge Diet: advance to your usual diet Activity: resume usual activities as tolerated Hygiene: no restrictions Weight Bearing at Discharge: full weight bearing - Discharge Medications Continue Insulin Glargine [Lantus] 10 unit SUBCUT QOTHER DAY Metoclopramide HCl 5 mg PO QID PRN PRN Reason: Indigestion Pro Renal D 1 tablet PO DAILY Calcium Acetate [Phoslo] 2 tablet PO WITH SNACKS Doxazosin [Cardura] 2 mg PO BID Losartan Potassium [Cozaar] 100 mg PO DAILY glipiZIDE [Glucotrol] 10 mg PO BID Cinacalcet [Sensipar] 30 mg PO BID cloNIDine TAB [Catapres Tab] 0.1 mg PO TID Carvedilol [Coreg] 6.25 mg PO BID Pantoprazole Tab [Protonix Tab] 40 mg PO BID Calcium Acetate [Phoslo] 3 tablet PO TID W/MEALS - Follow Up or Referral - Forms/Instructions Exam - Constitutional Vitals: Period Temp Pulse Resp BP Sys/Durant Pulse Ox Last 24 Hr 96.5 F-98.3 F 56-67 16-20 122-174/53-70 97-100 Vital signs are noted above. Heart is regular with no murmur. Lungs are clear with no rales or wheezes. Abdomen is soft. She is awake and alert. Discharge Results Procedures and tests throughout hospitalization: Pending Orders 05/13/17 04:00 Prothrombin Time INR IN AM Labs on day of discharge: Labs from last 24 hours 05/12/17 05/12/17 04:44 04:44 Hgb 9.6 L Hct 29.6 L INR 1.0 PT Patient/Control Mix 11.1 DS: Provider Date of admission: 05/10/17 17:03 Primary care physician: Austin García Jr., MD Attending physician on admission: Terrie Walton MD Consults: 05/10/17 17:06 Consult to Physician [CONS] Routine Comment: Consulting Provider: Chapo Harp Consulting Provider Notified: Yes When should Consulting Provider be notified: In am Consult to Specialist Group: Nephrology When should Consulting Provider be notified: Now Person Notified: MARY Date Notified: 05/11/17 Time Notified: 09:35 05/10/17 17:07 Consult to Physician [CONS] Routine 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
== END 2017-05-12 16:20 | disposition home or self-care (01) | DRG 377 ==
LOC: EDBD → EDUNIT# → N.ED 15:49 → N.EDINP 17:03 → SUATTDRO 17:03 → N.EDINP 17:50 → N.4E 18:17
PROVIDERS: ADMIT Emergency Medicine; ATTEND Internal Medicine Geriatric Medicine

== ENCOUNTER 2017-09-07 14:26 | Inpatient (IN) ==
[2017-09-07 16:19] LABS: PT Patient Result 10.9 SECS
[2017-09-07 16:20] LABS: Basophils % 0.4 % (0.0-0.8); Eosinophils # 0.3 10*3/uL (0.0-0.87); Eosinophils % 5.9 % (0.00-10.9); Hematocrit 33.6 VOL% (35.7-47.0); Hemoglobin 10.8 GM/DL (12.0-16.0); Immature Granulocytes % 0.2 %; Immature Granulocytes Absolute 0.01 #; Lymphocytes # 0.6 10*3/uL (1.4-4.0); Lymphocytes % 12.5 % (21.3-54.2); Mean Corpuscular HGB Conc 32.1 GM/DL (32-36); Mean Corpuscular Hemoglobin 29 PG (27-34); Mean Corpuscular Volume 91.3 FL (87-102); Mean Platelet Volume 11.9 FL (9.6-12.0); Monocytes # 0.8 10*3/uL (0.11-0.8); Monocytes % 15.6 % (1.7-12.7); Neutrophils # 3.2 10*3/uL (1.4-7.4); Neutrophils % 65.4 % (38.7-73.9); Platelet Count 188 T/CUMM (130-400); Red Blood Count 3.68 MC/CUMM (3.8-5.5); Red Cell Distribution Width 14.8 % (9.3-17.3)
[2017-09-07 16:29] LABS: Alanine Aminotransferase 14 U/L (13-56); Albumin 3.2 G/DL (3.4-5.0); Alkaline Phosphatase 92 U/L (45-117); Aspartate Amino Transferase 18 U/L (0-37); Bilirubin,Total < 0.39 MG/DL (0.2-1.0); Blood Urea Nitrogen 16 MG/DL (7-18); Calcium 9.1 MG/DL (8.5-10.1); Glucose 113 MG/DL (74-106); Magnesium 2.1 MG/DL (1.8-2.4); Osmolality,Calculated 271.1 MOS/KG (273-304); Potassium 3.5 MMOL/L (3.5-5.1); Sodium 135 MMOL/L (136-145); Total Protein 7.3 G/DL (6.4-8.3)
[2017-09-07 16:30] LABS: Troponin I Only 0.075 NG/ML (0.00-0.045)
[2017-09-07] MEDS ORDERED: ONDANSETRON 4 MG/2 ML VIAL IV STA (17:14)
[2017-09-07] MEDS ORDERED: PANTOPRAZOLE 40 MG VIAL IV STA (17:14)
[2017-09-07] MEDS ORDERED: ONDANSETRON 4 MG/2 ML VIAL ONE (17:44)
[2017-09-07] MEDS ORDERED: PANTOPRAZOLE 40 MG VIAL IV ONE (17:44)
[2017-09-07 18:00] LABS: Eosinophils 2 % (0-10); Lymphocytes 12 % (20-55); Platelet Estimate Normal; Segmented Neutrophils 80 % (50-85); Total Cells Counted 100
[2017-09-07 18:01] LABS: Hypochromasia 1+
[2017-09-07] MEDS ORDERED: hydrALAZINE 20 MG/1 ML VIAL IV STA (18:53)
[2017-09-07] MEDS ORDERED: hydrALAZINE 20 MG/1 ML VIAL ONE (18:58)
[2017-09-07] MEDS ORDERED: hydrALAZINE 20 MG/1 ML VIAL IV PRN (20:10)
[2017-09-07] MEDS ORDERED: DEXTROSE 50% 25 GM/50 ML VIAL IV PRN (20:10)
[2017-09-07] MEDS ORDERED: GLUCAGON 1 MG VIAL IM PRN (20:10)
[2017-09-07] MEDS: DOXAZOSIN 4 MG TABLET PO SCH (21:16)
[2017-09-07] MEDS: CARVEDILOL 6.25 MG TABLET PO SCH (21:16)
[2017-09-07] MEDS: cloNIDine 0.1 MG TABLET PO SCH (21:16)
[2017-09-07] MEDS: CINACALCET 30 MG TABLET PO SCH (21:16)
[2017-09-07] MEDS: INSULIN LISPRO 100 UNIT/ML SUBCUT SCH (21:20)
[2017-09-07] MEDS: PANTOPRAZOLE 40 MG VIAL IV SCH (21:20)
[2017-09-07 23:41] LABS: Hematocrit 31.8 VOL% (35.7-47.0); Hemoglobin 9.8 GM/DL (12.0-16.0)
[2017-09-08 05:20] LABS: Hematocrit 29.6 VOL% (35.7-47.0)
[2017-09-08] MEDS: INSULIN LISPRO 100 UNIT/ML SUBCUT SCH ×4 (07:58→22:26)
[2017-09-08] MEDS ORDERED: [UNRECOGNIZED DRUG - OTHER] PO SCH (09:00)
[2017-09-08] MEDS: CARVEDILOL 6.25 MG TABLET PO SCH ×2 (09:15→16:25)
[2017-09-08] MEDS: CALCIUM ACETATE 667 MG CAPSULE PO SCH ×3 (09:15→16:25)
[2017-09-08] MEDS: DOXAZOSIN 4 MG TABLET PO SCH ×2 (09:16→20:51)
[2017-09-08] MEDS: CINACALCET 30 MG TABLET PO SCH ×2 (09:17→20:51)
[2017-09-08] MEDS: LOSARTAN 50 MG TABLET PO SCH (09:17)
[2017-09-08] MEDS: PANTOPRAZOLE 40 MG VIAL IV SCH ×2 (09:17→20:50)
[2017-09-08] MEDS: cloNIDine 0.1 MG TABLET PO SCH ×3 (09:17→20:56)
[2017-09-08 10:26] LABS: Hematocrit 30.1 VOL% (35.7-47.0); Hemoglobin 9.4 GM/DL (12.0-16.0)
[2017-09-09 05:30] LABS: Basophils % 0.5 % (0.0-0.8); Eosinophils # 0.3 10*3/uL (0.0-0.87); Eosinophils % 6.7 % (0.00-10.9); Hematocrit 30.4 VOL% (35.7-47.0); Hemoglobin 9.7 GM/DL (12.0-16.0); Immature Granulocytes % 0.2 %; Immature Granulocytes Absolute 0.01 #; Lymphocytes # 0.6 10*3/uL (1.4-4.0); Lymphocytes % 14.1 % (21.3-54.2); Mean Corpuscular HGB Conc 31.9 GM/DL (32-36); Mean Corpuscular Hemoglobin 29 PG (27-34); Mean Corpuscular Volume 90.5 FL (87-102); Mean Platelet Volume 11.6 FL (9.6-12.0); Monocytes # 0.6 10*3/uL (0.11-0.8); Monocytes % 13.6 % (1.7-12.7); Neutrophils # 2.6 10*3/uL (1.4-7.4); Neutrophils % 64.9 % (38.7-73.9); Platelet Count 179 T/CUMM (130-400); Red Blood Count 3.36 MC/CUMM (3.8-5.5); Red Cell Distribution Width 14.6 % (9.3-17.3)
[2017-09-09 05:54] LABS: Calcium 8.4 MG/DL (8.5-10.1); Potassium 3.7 MMOL/L (3.5-5.1)
[2017-09-09] MEDS: INSULIN LISPRO 100 UNIT/ML SUBCUT SCH ×2 (07:55→12:57)
[2017-09-09] MEDS: CALCIUM ACETATE 667 MG CAPSULE PO SCH ×2 (12:52→12:57)
[2017-09-09] MEDS: CINACALCET 30 MG TABLET PO SCH (12:56)
[2017-09-09] MEDS: CARVEDILOL 6.25 MG TABLET PO SCH (12:56)
[2017-09-09] MEDS: LOSARTAN 50 MG TABLET PO SCH (12:56)
[2017-09-09] MEDS: DOXAZOSIN 4 MG TABLET PO SCH (12:56)
[2017-09-09] MEDS: PANTOPRAZOLE 40 MG VIAL IV SCH (12:57)
[2017-09-09 13:00] VITALS: BP 189/74
[2017-09-09] MEDS: cloNIDine 0.1 MG TABLET PO SCH (13:02)
== END 2017-09-09 15:24 | disposition home or self-care (01) | DRG 377 ==
LOC: N.ED 14:26 → SUATTDRO 18:50 → N.EDINP 18:50 → N.4E 19:30
PROVIDERS: ADMIT Internal Medicine; ATTEND Internal Medicine

== ENCOUNTER 2017-10-18 11:31 | Inpatient (IN) ==
[2017-10-18 13:56] LABS: Basophils % 0.3 % (0.0-0.8); Eosinophils # 0.3 10*3/uL (0.0-0.87); Eosinophils % 5.4 % (0.00-10.9); Hematocrit 25.2 VOL% (35.7-47.0); Hemoglobin 8.1 GM/DL (12.0-16.0); Immature Granulocytes % 0.3 %; Immature Granulocytes Absolute 0.02 #; Lymphocytes # 0.6 10*3/uL (1.4-4.0); Lymphocytes % 10.7 % (21.3-54.2); Mean Corpuscular HGB Conc 32.1 GM/DL (32-36); Mean Corpuscular Hemoglobin 29 PG (27-34); Mean Corpuscular Volume 88.7 FL (87-102); Monocytes # 0.5 10*3/uL (0.11-0.8); Monocytes % 8.8 % (1.7-12.7); Neutrophils # 4.4 10*3/uL (1.4-7.4); Neutrophils % 74.5 % (38.7-73.9); Platelet Count 268 T/CUMM (130-400); Red Blood Count 2.84 MC/CUMM (3.8-5.5); Red Cell Distribution Width 15.9 % (9.3-17.3); White Blood Count 5.9 T/CUMM (4-12)
[2017-10-18 14:17] LABS: Alanine Aminotransferase 15 U/L (13-56); Albumin 2.8 G/DL (3.4-5.0); Alkaline Phosphatase 88 U/L (45-117); Amylase 87 U/L (25-115); Aspartate Amino Transferase 17 U/L (0-37); Bilirubin,Total < 0.39 MG/DL (0.2-1.0); Blood Urea Nitrogen 57 MG/DL (7-18); Calcium 8.7 MG/DL (8.5-10.1); Glucose 123 MG/DL (74-106); Osmolality,Calculated 286.1 MOS/KG (273-304); Potassium 3.8 MMOL/L (3.5-5.1); Sodium 135 MMOL/L (136-145); Total Protein 7.1 G/DL (6.4-8.3)
[2017-10-18] MEDS ORDERED: DEXTROSE 50% 25 GM/50 ML VIAL IV PRN (16:52)
[2017-10-18] MEDS ORDERED: ACETAMINOPHEN 325 MG TABLET PO PRN (16:52)
[2017-10-18] MEDS ORDERED: ONDANSETRON 4 MG/2 ML VIAL IV PRN (16:52)
[2017-10-18] MEDS ORDERED: GLUCAGON 1 MG VIAL IM PRN (16:52)
[2017-10-18] MEDS ORDERED: SODIUM CHLORIDE 0.9% 1,000 ML IV PRN (16:52)
[2017-10-18] MEDS: INSULIN REGULAR 100 UNIT/ML SUBCUT SCH (22:00)
[2017-10-18 23:01] LABS: Hematocrit 22.3 VOL% (35.7-47.0)
[2017-10-19 07:14] LABS: Hematocrit 23.1 VOL% (35.7-47.0); Hemoglobin 7.3 GM/DL (12.0-16.0)
[2017-10-19 07:48] LABS: Calcium 8.4 MG/DL (8.5-10.1); Osmolality,Calculated 295.8 MOS/KG (273-304); Potassium 4.2 MMOL/L (3.5-5.1)
[2017-10-19] MEDS: INSULIN REGULAR 100 UNIT/ML SUBCUT SCH ×4 (08:30→21:04)
[2017-10-19] MEDS: PANTOPRAZOLE 40 MG TABLET PO SCH (08:33)
[2017-10-19 14:08] LABS: Hematocrit 23.1 VOL% (35.7-47.0); Hemoglobin 7.4 GM/DL (12.0-16.0)
[2017-10-19] MEDS ORDERED: METOCLOPRAMIDE 5 MG TABLET PO PRN (16:11)
[2017-10-19] MEDS ORDERED: CALCIUM ACETATE 667 MG CAPSULE PO SCH (16:30)
[2017-10-19] MEDS: CALCIUM ACETATE 667 MG CAPSULE PO SCH (17:06)
[2017-10-19] MEDS: DOXAZOSIN 1 MG TABLET PO SCH (17:06)
[2017-10-19] MEDS: MULTIVITAMIN (BEROCCA) TABLET PO SCH (17:06)
[2017-10-19] MEDS: cloNIDine 0.1 MG TABLET PO SCH (20:59)
[2017-10-19] MEDS: CARVEDILOL 6.25 MG TABLET PO SCH (21:00)
[2017-10-19] MEDS: INSULIN GLARGINE 100 UNIT/ML SUBCUT SCH (21:04)
[2017-10-19] MEDS: CINACALCET 30 MG TABLET PO SCH (21:04)
[2017-10-20 04:31] LABS: Basophils % 0.4 % (0.0-0.8); Eosinophils # 0.3 10*3/uL (0.0-0.87); Eosinophils % 4.1 % (0.00-10.9); Hematocrit 25.8 VOL% (35.7-47.0); Hemoglobin 8.1 GM/DL (12.0-16.0); Immature Granulocytes % 0.6 %; Immature Granulocytes Absolute 0.04 #; Lymphocytes # 0.7 10*3/uL (1.4-4.0); Lymphocytes % 9.2 % (21.3-54.2); Mean Corpuscular HGB Conc 31.4 GM/DL (32-36); Mean Corpuscular Hemoglobin 29 PG (27-34); Mean Corpuscular Volume 91.5 FL (87-102); Mean Platelet Volume 11.3 FL (9.6-12.0); Monocytes # 0.9 10*3/uL (0.11-0.8); Monocytes % 12.8 % (1.7-12.7); NRBC # 0.02 10*3/uL; Neutrophils # 5.2 10*3/uL (1.4-7.4); Neutrophils % 72.9 % (38.7-73.9); Platelet Count 255 T/CUMM (130-400); Red Blood Count 2.82 MC/CUMM (3.8-5.5); Red Cell Distribution Width 15.7 % (9.3-17.3); White Blood Count 7.1 T/CUMM (4-12)
[2017-10-20] MEDS: cloNIDine 0.1 MG TABLET PO SCH ×3 (10:15→20:50)
[2017-10-20] MEDS: DOXAZOSIN 1 MG TABLET PO SCH (10:15)
[2017-10-20] MEDS: LOSARTAN 50 MG TABLET PO SCH (10:15)
[2017-10-20] MEDS: CALCIUM ACETATE 667 MG CAPSULE PO SCH ×3 (10:15→18:18)
[2017-10-20] MEDS: MULTIVITAMIN (BEROCCA) TABLET PO SCH (10:15)
[2017-10-20] MEDS: CARVEDILOL 6.25 MG TABLET PO SCH ×2 (10:15→20:51)
[2017-10-20] MEDS: PANTOPRAZOLE 40 MG TABLET PO SCH (10:16)
[2017-10-20] MEDS: INSULIN REGULAR 100 UNIT/ML SUBCUT SCH ×4 (10:16→20:51)
[2017-10-20] MEDS: CINACALCET 30 MG TABLET PO SCH ×2 (15:28→20:50)
[2017-10-20] MEDS: INSULIN GLARGINE 100 UNIT/ML SUBCUT SCH (20:51)
[2017-10-21 06:46] LABS: Basophils % 0.3 % (0.0-0.8); Eosinophils # 0.4 10*3/uL (0.0-0.87); Eosinophils % 5.8 % (0.00-10.9); Hematocrit 25.9 VOL% (35.7-47.0); Hemoglobin 8.2 GM/DL (12.0-16.0); Immature Granulocytes % 0.6 %; Immature Granulocytes Absolute 0.04 #; Lymphocytes # 0.9 10*3/uL (1.4-4.0); Lymphocytes % 13.1 % (21.3-54.2); Mean Corpuscular HGB Conc 31.7 GM/DL (32-36); Mean Corpuscular Hemoglobin 29 PG (27-34); Mean Corpuscular Volume 91.5 FL (87-102); Mean Platelet Volume 10.5 FL (9.6-12.0); Monocytes # 0.7 10*3/uL (0.11-0.8); Monocytes % 10.8 % (1.7-12.7); Neutrophils # 4.6 10*3/uL (1.4-7.4); Neutrophils % 69.4 % (38.7-73.9); Platelet Count 289 T/CUMM (130-400); Red Blood Count 2.83 MC/CUMM (3.8-5.5); Red Cell Distribution Width 16.6 % (9.3-17.3); White Blood Count 6.6 T/CUMM (4-12)
[2017-10-21] MEDS: INSULIN REGULAR 100 UNIT/ML SUBCUT SCH ×2 (07:37→11:49)
[2017-10-21] MEDS: PANTOPRAZOLE 40 MG TABLET PO SCH (09:30)
[2017-10-21] MEDS: DOXAZOSIN 1 MG TABLET PO SCH (09:30)
[2017-10-21] MEDS: MULTIVITAMIN (BEROCCA) TABLET PO SCH (09:30)
[2017-10-21] MEDS: CINACALCET 30 MG TABLET PO SCH (09:30)
[2017-10-21] MEDS: CARVEDILOL 6.25 MG TABLET PO SCH (09:30)
[2017-10-21] MEDS: cloNIDine 0.1 MG TABLET PO SCH ×2 (09:30→14:41)
[2017-10-21] MEDS: LOSARTAN 50 MG TABLET PO SCH (09:30)
[2017-10-21] MEDS: CALCIUM ACETATE 667 MG CAPSULE PO SCH ×2 (09:31→14:11)
[2017-10-21 14:21] VITALS: BP 184/70
== END 2017-10-21 15:49 | disposition home or self-care (01) | DRG 377 ==
LOC: N.ED 11:31 → SUATTDRO 16:19 → N.EDINP 16:19 → N.2E 18:40
PROVIDERS: ADMIT Internal Medicine; ATTEND Internal Medicine

== ENCOUNTER 2017-12-22 01:08 | Inpatient (IN) ==
[2017-12-22 04:04] LABS: Basophils % 0.3 % (0.0-0.8); Eosinophils # 0.4 10*3/uL (0.0-0.87); Eosinophils % 6.1 % (0.00-10.9); Hematocrit 30.3 VOL% (35.7-47.0); Hemoglobin 9.2 GM/DL (12.0-16.0); Immature Granulocytes % 0.5 %; Immature Granulocytes Absolute 0.03 #; Lymphocytes # 0.8 10*3/uL (1.4-4.0); Lymphocytes % 12.9 % (21.3-54.2); Mean Corpuscular HGB Conc 30.4 GM/DL (32-36); Mean Corpuscular Hemoglobin 27 PG (27-34); Mean Corpuscular Volume 90.2 FL (87-102); Monocytes # 0.8 10*3/uL (0.11-0.8); Monocytes % 14.1 % (1.7-12.7); Neutrophils # 3.9 10*3/uL (1.4-7.4); Neutrophils % 66.1 % (38.7-73.9); Platelet Count 228 T/CUMM (130-400); Red Blood Count 3.36 MC/CUMM (3.8-5.5); Red Cell Distribution Width 16.2 % (9.3-17.3); White Blood Count 5.9 T/CUMM (4-12)
[2017-12-22 04:14] LABS: PT Patient Result 10.5 SECS
[2017-12-22 04:18] LABS: Calcium 8.5 MG/DL (8.5-10.1); Potassium 4.3 MMOL/L (3.5-5.1)
[2017-12-22 04:35] LABS: Hypochromasia 1+; Platelet Estimate Adequate
[2017-12-22 04:36] LABS: Giant Platelets Few; Ovalocytes Slight
[2017-12-22 06:13] LABS: Apearance,Urine CLOUDY (Clear); Bilirubin,Urine Negative (Negative); Blood, Urine Moderate mg/dL (Negative); Glucose,Urine (UA) 50 mg/dL (Negative); Ketones,Urine Negative (Negative); Mucus,Urine Occasional /LPF (Occasional); Nitrite,Urine Negative (Negative); Protein,Urine 100 MG/DL; RBC,Urine 2 /HPF (0-4); Squamous Epithelial Cell,Urine Moderate /HPF (0-10); Urine Color Yellow (Yellow); Urine Specific Gravity 1.017 (1.001-1.035); Urine Urobilinogen < 2.0 EU/DL (0.2-1.0); WBC,Urine 102 /HPF (0-6)
[2017-12-22] MEDS ORDERED: DEXTROSE 50% 25 GM/50 ML VIAL IV PRN (06:14)
[2017-12-22] MEDS ORDERED: GLUCAGON 1 MG VIAL IM PRN (06:14)
[2017-12-22 07:46] LABS: Hematocrit 28.7 VOL% (35.7-47.0); Hemoglobin 9.1 GM/DL (12.0-16.0)
[2017-12-22] MEDS: PANTOPRAZOLE 40 MG TABLET PO SCH ×2 (08:42→20:28)
[2017-12-22] MEDS: INSULIN LISPRO 100 UNIT/ML SUBCUT SCH ×4 (08:43→21:12)
[2017-12-22] MEDS ORDERED: PANTOPRAZOLE 40 MG TABLET PO SCH (09:00)
[2017-12-22] MEDS ORDERED: METOCLOPRAMIDE 5 MG TABLET PO PRN (11:21)
[2017-12-22] MEDS ORDERED: CALCIUM ACETATE 667 MG CAPSULE PO SCH ×2 (11:30→12:00)
[2017-12-22 13:26] LABS: Hematocrit 26.4 VOL% (35.7-47.0); Hemoglobin 8.2 GM/DL (12.0-16.0)
[2017-12-22] MEDS ORDERED: LEVOFLOXACIN INJ 500 MG in PREMIX 1 EACH IV ONE (15:00)
[2017-12-22] MEDS: cloNIDine 0.1 MG TABLET PO SCH ×2 (15:12→20:28)
[2017-12-22 18:08] LABS: Hematocrit 26.1 VOL% (35.7-47.0); Hemoglobin 8.2 GM/DL (12.0-16.0)
[2017-12-22] MEDS: CARVEDILOL 6.25 MG TABLET PO SCH (20:27)
[2017-12-22] MEDS: GABAPENTIN 300 MG CAPSULE PO SCH (20:28)
[2017-12-22] MEDS: DOCUSATE SODIUM 100 MG CAPSULE PO SCH (20:28)
[2017-12-22] MEDS: CINACALCET 30 MG TABLET PO SCH (20:28)
[2017-12-23 06:41] LABS: Basophils % 0.5 % (0.0-0.8); Eosinophils # 0.4 10*3/uL (0.0-0.87); Eosinophils % 10.6 % (0.00-10.9); Hematocrit 27.4 VOL% (35.7-47.0); Hemoglobin 8.5 GM/DL (12.0-16.0); Lymphocytes # 0.7 10*3/uL (1.4-4.0); Lymphocytes % 15.8 % (21.3-54.2); Mean Corpuscular Hemoglobin 27 PG (27-34); Mean Corpuscular Volume 87.8 FL (87-102); Mean Platelet Volume 10.2 FL (9.6-12.0); Monocytes # 0.6 10*3/uL (0.11-0.8); Monocytes % 14.6 % (1.7-12.7); Neutrophils # 2.4 10*3/uL (1.4-7.4); Neutrophils % 58.5 % (38.7-73.9); Platelet Count 214 T/CUMM (130-400); Red Blood Count 3.12 MC/CUMM (3.8-5.5); Red Cell Distribution Width 16.4 % (9.3-17.3); White Blood Count 4.2 T/CUMM (4-12)
[2017-12-23 06:56] LABS: Calcium 7.9 MG/DL (8.5-10.1); Osmolality,Calculated 275.7 MOS/KG (273-304); Potassium 4.2 MMOL/L (3.5-5.1)
[2017-12-23] MEDS: DOCUSATE SODIUM 100 MG CAPSULE PO SCH ×2 (08:28→20:31)
[2017-12-23] MEDS: CINACALCET 30 MG TABLET PO SCH ×2 (08:28→20:30)
[2017-12-23] MEDS: CARVEDILOL 6.25 MG TABLET PO SCH ×2 (08:29→20:31)
[2017-12-23] MEDS: PANTOPRAZOLE 40 MG TABLET PO SCH ×2 (08:29→20:31)
[2017-12-23] MEDS: cloNIDine 0.1 MG TABLET PO SCH ×3 (08:29→20:30)
[2017-12-23 08:30] LABS: Eosinophils 9 % (0-10); Hypochromasia 1+; Lymphocytes 22 % (20-55); Microcytosis 1+; Ovalocytes Few; Segmented Neutrophils 61 % (50-85); Total Cells Counted 100
[2017-12-23 08:31] LABS: Platelet Estimate Normal
[2017-12-23] MEDS: INSULIN LISPRO 100 UNIT/ML SUBCUT SCH ×4 (08:31→20:31)
[2017-12-23] MEDS: GABAPENTIN 300 MG CAPSULE PO SCH (20:31)
[2017-12-24 07:58] VITALS: BP 155/64
[2017-12-24] MEDS: CARVEDILOL 6.25 MG TABLET PO SCH (08:34)
[2017-12-24] MEDS: cloNIDine 0.1 MG TABLET PO SCH (08:34)
[2017-12-24] MEDS: INSULIN LISPRO 100 UNIT/ML SUBCUT SCH (08:34)
[2017-12-24] MEDS: CINACALCET 30 MG TABLET PO SCH (08:34)
[2017-12-24] MEDS: PANTOPRAZOLE 40 MG TABLET PO SCH (08:34)
[2017-12-24] MEDS: DOCUSATE SODIUM 100 MG CAPSULE PO SCH (08:34)
[2017-12-24] MEDS ORDERED: LEVOFLOXACIN INJ 250 MG in PREMIX 1 EACH IV SCH (09:00)
== END 2017-12-24 11:20 | disposition home or self-care (01) | DRG 377 ==
LOC: N.ED 01:08 → SUATTDRO 06:09 → N.EDINP 06:09 → N.2E 06:31
PROVIDERS: ADMIT Internal Medicine; ATTEND Internal Medicine Cardiovascular Disease

== ENCOUNTER 2017-12-26 16:24 | Inpatient (IN) ==
[2017-12-26] MEDS ORDERED: PANTOPRAZOLE 40 MG VIAL IV STA (16:51)
[2017-12-26] MEDS ORDERED: ONDANSETRON 4 MG/2 ML VIAL IV STA (16:51)
[2017-12-26] MEDS ORDERED: ONDANSETRON 4 MG/2 ML VIAL ONE (17:07)
[2017-12-26] MEDS ORDERED: PANTOPRAZOLE 40 MG VIAL IV ONE (17:07)
[2017-12-26 17:09] LABS: Basophils % 0.6 % (0.0-0.8); Eosinophils # 0.1 10*3/uL (0.0-0.87); Eosinophils % 2.8 % (0.00-10.9); Hematocrit 26.8 VOL% (35.7-47.0); Hemoglobin 8.3 GM/DL (12.0-16.0); Immature Granulocytes % 0.4 %; Immature Granulocytes Absolute 0.02 #; Lymphocytes # 0.6 10*3/uL (1.4-4.0); Mean Corpuscular Hemoglobin 28 PG (27-34); Mean Corpuscular Volume 88.7 FL (87-102); Mean Platelet Volume 10.5 FL (9.6-12.0); Monocytes # 0.6 10*3/uL (0.11-0.8); Neutrophils # 3.3 10*3/uL (1.4-7.4); Neutrophils % 70.2 % (38.7-73.9); Platelet Count 230 T/CUMM (130-400); Red Blood Count 3.02 MC/CUMM (3.8-5.5); White Blood Count 4.7 T/CUMM (4-12)
[2017-12-26 17:23] LABS: PT Patient Result 10.7 SECS
[2017-12-26] MEDS ORDERED: DEXTROSE 50% 25 GM/50 ML VIAL IV PRN (17:36)
[2017-12-26] MEDS ORDERED: GLUCAGON 1 MG VIAL IM PRN (17:36)
[2017-12-26] MEDS ORDERED: CALCIUM ACETATE 667 MG CAPSULE PO SCH (18:00)
[2017-12-26] MEDS: cloNIDine 0.1 MG TABLET PO SCH (21:24)
[2017-12-26] MEDS: CARVEDILOL 6.25 MG TABLET PO SCH (21:24)
[2017-12-26] MEDS: DOCUSATE SODIUM 100 MG CAPSULE PO SCH (21:24)
[2017-12-26] MEDS: GABAPENTIN 300 MG CAPSULE PO SCH (21:24)
[2017-12-26] MEDS: PANTOPRAZOLE 40 MG TABLET PO SCH (21:24)
[2017-12-26] MEDS: INSULIN REGULAR 100 UNIT/ML SUBCUT SCH (21:30)
[2017-12-26] MEDS: INSULIN GLARGINE 100 UNIT/ML SUBCUT SCH (21:31)
[2017-12-26 21:49] LABS: Alanine Aminotransferase 17 U/L (13-56); Albumin 2.9 G/DL (3.4-5.0); Alkaline Phosphatase 145 U/L (45-117); Aspartate Amino Transferase 24 U/L (0-37); Blood Urea Nitrogen 48 MG/DL (7-18); Calcium 8.2 MG/DL (8.5-10.1); Glucose 115 MG/DL (74-106); Osmolality,Calculated 281.2 MOS/KG (273-304); Potassium 4.7 MMOL/L (3.5-5.1); Sodium 134 MMOL/L (136-145); Total Protein 6.4 G/DL (6.4-8.3)
[2017-12-27] MEDS: CINACALCET 30 MG TABLET PO SCH ×3 (00:10→20:24)
[2017-12-27 06:24] LABS: Basophils % 0.2 % (0.0-0.8); Eosinophils # 0.2 10*3/uL (0.0-0.87); Eosinophils % 3.4 % (0.00-10.9); Hematocrit 22.5 VOL% (35.7-47.0); Immature Granulocytes % 0.7 %; Immature Granulocytes Absolute 0.03 #; Lymphocytes # 0.8 10*3/uL (1.4-4.0); Lymphocytes % 18.5 % (21.3-54.2); Mean Corpuscular HGB Conc 31.1 GM/DL (32-36); Mean Corpuscular Hemoglobin 27 PG (27-34); Mean Corpuscular Volume 86.5 FL (87-102); Mean Platelet Volume 10.7 FL (9.6-12.0); Monocytes # 0.7 10*3/uL (0.11-0.8); Monocytes % 15.3 % (1.7-12.7); Neutrophils # 2.7 10*3/uL (1.4-7.4); Neutrophils % 61.9 % (38.7-73.9); Platelet Count 229 T/CUMM (130-400); White Blood Count 4.4 T/CUMM (4-12)
[2017-12-27 06:55] LABS: Albumin 2.7 G/DL (3.4-5.0); Bilirubin,Total 0.4 MG/DL (0.2-1.0); Calcium 7.6 MG/DL (8.5-10.1); Osmolality,Calculated 288.4 MOS/KG (273-304); Potassium 4.9 MMOL/L (3.5-5.1); Total Protein 5.9 G/DL (6.4-8.3)
[2017-12-27] MEDS: CALCIUM ACETATE 667 MG CAPSULE PO SCH ×3 (09:07→16:31)
[2017-12-27] MEDS: CARVEDILOL 6.25 MG TABLET PO SCH ×2 (09:08→20:24)
[2017-12-27] MEDS: DOCUSATE SODIUM 100 MG CAPSULE PO SCH ×2 (09:08→20:24)
[2017-12-27] MEDS: cloNIDine 0.1 MG TABLET PO SCH ×3 (09:08→20:24)
[2017-12-27] MEDS: PANTOPRAZOLE 40 MG TABLET PO SCH ×2 (09:08→20:24)
[2017-12-27] MEDS ORDERED: SODIUM CHLORIDE 0.9% 1,000 ML IV PRN (10:02)
[2017-12-27] MEDS: INSULIN REGULAR 100 UNIT/ML SUBCUT SCH ×4 (10:16→21:39)
[2017-12-27 15:59] LABS: Hematocrit 27.2 VOL% (35.7-47.0); Hemoglobin 8.5 GM/DL (12.0-16.0)
[2017-12-27] MEDS: METOCLOPRAMIDE 5 MG TABLET PO PRN ×2 (18:20→20:23)
[2017-12-27] MEDS: GABAPENTIN 300 MG CAPSULE PO SCH (20:23)
[2017-12-27] MEDS: INSULIN GLARGINE 100 UNIT/ML SUBCUT SCH (21:39)
[2017-12-28 01:14] LABS: Basophils % 0.3 % (0.0-0.8); Eosinophils # 0.1 10*3/uL (0.0-0.87); Eosinophils % 0.6 % (0.00-10.9); Hemoglobin 9.2 GM/DL (12.0-16.0); Immature Granulocytes % 0.5 %; Immature Granulocytes Absolute 0.04 #; Lymphocytes # 0.7 10*3/uL (1.4-4.0); Lymphocytes % 8.4 % (21.3-54.2); Mean Corpuscular HGB Conc 31.7 GM/DL (32-36); Mean Corpuscular Hemoglobin 28 PG (27-34); Mean Corpuscular Volume 86.8 FL (87-102); Mean Platelet Volume 11.1 FL (9.6-12.0); Monocytes # 0.9 10*3/uL (0.11-0.8); Neutrophils # 6.3 10*3/uL (1.4-7.4); Neutrophils % 79.2 % (38.7-73.9); Platelet Count 205 T/CUMM (130-400); Red Blood Count 3.34 MC/CUMM (3.8-5.5); Red Cell Distribution Width 15.9 % (9.3-17.3)
[2017-12-28 01:32] LABS: Osmolality,Calculated 286.9 MOS/KG (273-304)
[2017-12-28 01:36] LABS: Potassium 6.8 MMOL/L (3.5-5.1)
[2017-12-28] MEDS ORDERED: CALCIUM GLUCONATE 1,000 MG in SODIUM CHLORIDE 0.9% 100 ML IV ONE (01:41)
[2017-12-28] MEDS ORDERED: SODIUM POLYSTYRENE SULFATE 15 GM/60 ML BOTTLE PO ONE (01:42)
[2017-12-28 07:42] LABS: Calcium 8.5 MG/DL (8.5-10.1); Osmolality,Calculated 286.7 MOS/KG (273-304); Potassium 5.3 MMOL/L (3.5-5.1)
[2017-12-28] MEDS: INSULIN REGULAR 100 UNIT/ML SUBCUT SCH ×4 (08:54→22:09)
[2017-12-28] MEDS: CALCIUM ACETATE 667 MG CAPSULE PO SCH ×3 (10:18→17:49)
[2017-12-28] MEDS: DOCUSATE SODIUM 100 MG CAPSULE PO SCH ×2 (10:19→22:03)
[2017-12-28] MEDS: PANTOPRAZOLE 40 MG TABLET PO SCH ×2 (10:19→22:03)
[2017-12-28] MEDS: CINACALCET 30 MG TABLET PO SCH ×2 (10:19→22:03)
[2017-12-28] MEDS ORDERED: BISACODYL 5 MG TABLET PO ONE (12:00)
[2017-12-28] MEDS ORDERED: PROPOFOL 200 MG/20 ML VIAL IV ONE (12:35)
[2017-12-28] MEDS ORDERED: LIDOCAINE 100 MG/5 ML SYRINGE ONE (12:35)
[2017-12-28] MEDS ORDERED: POLYETHYLENE GLYCOL POWDER 255 GM BOTTLE PO ONE (18:00)
[2017-12-28] MEDS ORDERED: hydrALAZINE 20 MG/1 ML VIAL IV PRN (21:18)
[2017-12-28] MEDS: GABAPENTIN 300 MG CAPSULE PO SCH (22:04)
[2017-12-28] MEDS: INSULIN GLARGINE 100 UNIT/ML SUBCUT SCH (22:09)
[2017-12-29 05:38] LABS: Basophils % 0.5 % (0.0-0.8); Eosinophils # 0.2 10*3/uL (0.0-0.87); Eosinophils % 2.8 % (0.00-10.9); Hemoglobin 8.8 GM/DL (12.0-16.0); Immature Granulocytes % 0.3 %; Immature Granulocytes Absolute 0.02 #; Lymphocytes # 0.6 10*3/uL (1.4-4.0); Lymphocytes % 9.1 % (21.3-54.2); Mean Corpuscular HGB Conc 32.6 GM/DL (32-36); Mean Corpuscular Hemoglobin 28 PG (27-34); Mean Corpuscular Volume 85.2 FL (87-102); Monocytes # 0.8 10*3/uL (0.11-0.8); Monocytes % 12.6 % (1.7-12.7); Neutrophils # 4.7 10*3/uL (1.4-7.4); Neutrophils % 74.7 % (38.7-73.9); Platelet Count 183 T/CUMM (130-400); Red Blood Count 3.17 MC/CUMM (3.8-5.5); Red Cell Distribution Width 15.9 % (9.3-17.3); White Blood Count 6.4 T/CUMM (4-12)
[2017-12-29] MEDS ORDERED: MAGNESIUM CITRATE 300 ML BOTTLE PO ONE (06:00)
[2017-12-29 06:03] LABS: Calcium 7.8 MG/DL (8.5-10.1); Osmolality,Calculated 272.8 MOS/KG (273-304); Potassium 4.7 MMOL/L (3.5-5.1)
[2017-12-29 06:15] LABS: Risk Ratio 2.62; VLDL CHOLESTEROL 20.8 MG/DL
[2017-12-29] MEDS: INSULIN REGULAR 100 UNIT/ML SUBCUT SCH ×4 (08:40→22:01)
[2017-12-29] MEDS: CALCIUM ACETATE 667 MG CAPSULE PO SCH ×3 (09:33→16:42)
[2017-12-29] MEDS: CINACALCET 30 MG TABLET PO SCH ×2 (10:29→21:22)
[2017-12-29] MEDS: PANTOPRAZOLE 40 MG TABLET PO SCH ×2 (10:29→21:22)
[2017-12-29] MEDS: DOCUSATE SODIUM 100 MG CAPSULE PO SCH ×2 (10:29→22:00)
[2017-12-29] MEDS ORDERED: DEXTROSE 50% 25 GM/50 ML VIAL IV PRN (13:16)
[2017-12-29] MEDS ORDERED: GLUCAGON 1 MG VIAL IM PRN (13:16)
[2017-12-29] MEDS ORDERED: PROPOFOL 200 MG/20 ML VIAL IV ONE (13:33)
[2017-12-29] MEDS ORDERED: LIDOCAINE 2% 5 ML VIAL ONE (13:33)
[2017-12-29] MEDS ORDERED: SODIUM CHLORIDE 0.9% 1,000 ML IV PRN (14:21)
[2017-12-29] MEDS: CARVEDILOL 3.125 MG TABLET PO SCH (16:42)
[2017-12-29] MEDS: ROSUVASTATIN 10 MG TABLET PO SCH (21:22)
[2017-12-29] MEDS: hydrALAZINE 25 MG TABLET PO SCH (21:23)
[2017-12-29] MEDS: GABAPENTIN 300 MG CAPSULE PO SCH (21:23)
[2017-12-29] MEDS: INSULIN GLARGINE 100 UNIT/ML SUBCUT SCH (21:24)
[2017-12-30 06:07] LABS: Basophils % 0.3 % (0.0-0.8); Eosinophils # 0.1 10*3/uL (0.0-0.87); Eosinophils % 2.4 % (0.00-10.9); Hematocrit 23.3 VOL% (35.7-47.0); Hemoglobin 7.3 GM/DL (12.0-16.0); Immature Granulocytes % 0.5 %; Immature Granulocytes Absolute 0.03 #; Lymphocytes # 0.7 10*3/uL (1.4-4.0); Lymphocytes % 11.4 % (21.3-54.2); Mean Corpuscular HGB Conc 31.3 GM/DL (32-36); Mean Corpuscular Hemoglobin 27 PG (27-34); Mean Corpuscular Volume 86.9 FL (87-102); Mean Platelet Volume 10.1 FL (9.6-12.0); Monocytes # 0.9 10*3/uL (0.11-0.8); Monocytes % 15.1 % (1.7-12.7); Neutrophils # 4.1 10*3/uL (1.4-7.4); Neutrophils % 70.3 % (38.7-73.9); Platelet Count 240 T/CUMM (130-400); Red Blood Count 2.68 MC/CUMM (3.8-5.5); Red Cell Distribution Width 15.7 % (9.3-17.3); White Blood Count 5.8 T/CUMM (4-12)
[2017-12-30] MEDS ORDERED: SODIUM CHLORIDE 0.9% 1,000 ML IV PRN (06:15)
[2017-12-30 06:34] LABS: Osmolality,Calculated 279.8 MOS/KG (273-304); Potassium 5.1 MMOL/L (3.5-5.1)
[2017-12-30] MEDS: CALCIUM ACETATE 667 MG CAPSULE PO SCH ×3 (09:09→17:15)
[2017-12-30] MEDS: INSULIN REGULAR 100 UNIT/ML SUBCUT SCH ×4 (09:09→21:05)
[2017-12-30] MEDS: DOCUSATE SODIUM 100 MG CAPSULE PO SCH ×2 (09:09→20:58)
[2017-12-30] MEDS: PANTOPRAZOLE 40 MG TABLET PO SCH ×2 (10:44→20:58)
[2017-12-30] MEDS: hydrALAZINE 25 MG TABLET PO SCH ×2 (10:44→20:58)
[2017-12-30] MEDS: CINACALCET 30 MG TABLET PO SCH ×2 (10:44→20:58)
[2017-12-30] MEDS: CARVEDILOL 3.125 MG TABLET PO SCH (10:44)
[2017-12-30] MEDS ORDERED: cefOXitin 2,000 MG in SYRINGE 1 EACH IV ONE (10:49)
[2017-12-30] MEDS: amLODIPine 10 MG TABLET PO SCH (12:48)
[2017-12-30] MEDS ORDERED: PROPOFOL 200 MG/20 ML VIAL IV ONE (14:59)
[2017-12-30] MEDS ORDERED: fentaNYL 100 MCG/2 ML VIAL ONE (14:59)
[2017-12-30] MEDS ORDERED: SEVOFLURANE 1 UNIT/15 MINUTE INH ONE (14:59)
[2017-12-30] MEDS ORDERED: MIDAZOLAM 2 MG/2 ML VIAL ONE (15:00)
[2017-12-30] MEDS ORDERED: GLYCOPYRROLATE 0.4 MG/2 ML VIAL ONE (15:02)
[2017-12-30] MEDS ORDERED: ePHEDrine 50 MG/ML AMP ONE (15:02)
[2017-12-30] MEDS ORDERED: PHENYLEPHRINE 10 MG/1 ML VIAL IV ONE (15:02)
[2017-12-30] MEDS ORDERED: ONDANSETRON 4 MG/2 ML VIAL ONE ×2 (15:02→15:09)
[2017-12-30] MEDS ORDERED: ROCURONIUM 100 MG/10 ML VIAL IV ONE (15:02)
[2017-12-30] MEDS ORDERED: NEOSTIGMINE 10 MG/10 ML VIAL ONE (15:03)
[2017-12-30] MEDS ORDERED: HYDROmorphone 2 MG/1 ML VIAL ONE (15:09)
[2017-12-30] MEDS: HYDROmorphone 2 MG/1 ML VIAL IV PRN ×4 (15:09→15:38)
[2017-12-30] MEDS ORDERED: ONDANSETRON 4 MG/2 ML VIAL IV PRN (16:00)
[2017-12-30] MEDS: CARVEDILOL 6.25 MG TABLET PO SCH (17:09)
[2017-12-30] MEDS: MORPHINE 4 MG/1 ML VIAL IV PRN (17:09)
[2017-12-30] MEDS: GABAPENTIN 300 MG CAPSULE PO SCH (20:58)
[2017-12-30] MEDS: ROSUVASTATIN 10 MG TABLET PO SCH (20:58)
[2017-12-30] MEDS: INSULIN GLARGINE 100 UNIT/ML SUBCUT SCH (21:05)
[2017-12-31 04:58] LABS: Basophils % 0.4 % (0.0-0.8); Eosinophils # 0.1 10*3/uL (0.0-0.87); Eosinophils % 0.7 % (0.00-10.9); Hematocrit 33.6 VOL% (35.7-47.0); Hemoglobin 10.8 GM/DL (12.0-16.0); Immature Granulocytes % 0.2 %; Immature Granulocytes Absolute 0.02 #; Lymphocytes # 0.3 10*3/uL (1.4-4.0); Lymphocytes % 3.1 % (21.3-54.2); Mean Corpuscular HGB Conc 32.1 GM/DL (32-36); Mean Corpuscular Hemoglobin 27 PG (27-34); Mean Corpuscular Volume 84.6 FL (87-102); Mean Platelet Volume 10.2 FL (9.6-12.0); Monocytes % 11.3 % (1.7-12.7); Neutrophils # 7.1 10*3/uL (1.4-7.4); Neutrophils % 84.3 % (38.7-73.9); Platelet Count 251 T/CUMM (130-400); Red Blood Count 3.97 MC/CUMM (3.8-5.5); Red Cell Distribution Width 15.8 % (9.3-17.3); White Blood Count 8.4 T/CUMM (4-12)
[2017-12-31 05:21] LABS: Band Neutrophils 3 % (0-10); Lymphocytes 9 % (20-55); Segmented Neutrophils 79 % (50-85); Total Cells Counted 100
[2017-12-31 05:23] LABS: Hypochromasia 1+; Platelet Estimate Normal; Polychromasia Few
[2017-12-31 05:24] LABS: Calcium 7.6 MG/DL (8.5-10.1); Giant Platelets Few; Osmolality,Calculated 276.1 MOS/KG (273-304); Ovalocytes 1+; Potassium 4.8 MMOL/L (3.5-5.1)
[2017-12-31] MEDS: INSULIN REGULAR 100 UNIT/ML SUBCUT SCH ×4 (08:35→22:07)
[2017-12-31] MEDS: CALCIUM ACETATE 667 MG CAPSULE PO SCH ×3 (09:40→16:56)
[2017-12-31] MEDS: CARVEDILOL 6.25 MG TABLET PO SCH ×2 (09:41→16:55)
[2017-12-31] MEDS: PANTOPRAZOLE 40 MG TABLET PO SCH ×2 (09:41→21:42)
[2017-12-31] MEDS: amLODIPine 10 MG TABLET PO SCH (09:41)
[2017-12-31] MEDS: hydrALAZINE 25 MG TABLET PO SCH ×2 (09:41→21:42)
[2017-12-31] MEDS: CINACALCET 30 MG TABLET PO SCH ×2 (09:41→21:42)
[2017-12-31] MEDS: DOCUSATE SODIUM 100 MG CAPSULE PO SCH ×2 (09:41→21:42)
[2017-12-31] MEDS: GABAPENTIN 300 MG CAPSULE PO SCH (21:42)
[2017-12-31] MEDS: ROSUVASTATIN 10 MG TABLET PO SCH (22:06)
[2017-12-31] MEDS: INSULIN GLARGINE 100 UNIT/ML SUBCUT SCH (22:07)
[2018-01-01 09:01] LABS: Basophils % 0.2 % (0.0-0.8); Eosinophils # 0.5 10*3/uL (0.0-0.87); Hematocrit 34.1 VOL% (35.7-47.0); Hemoglobin 10.6 GM/DL (12.0-16.0); Immature Granulocytes % 0.4 %; Immature Granulocytes Absolute 0.04 #; Lymphocytes # 0.4 10*3/uL (1.4-4.0); Mean Corpuscular HGB Conc 31.1 GM/DL (32-36); Mean Corpuscular Hemoglobin 27 PG (27-34); Mean Corpuscular Volume 86.8 FL (87-102); Monocytes # 1.1 10*3/uL (0.11-0.8); Monocytes % 10.9 % (1.7-12.7); Neutrophils % 79.5 % (38.7-73.9); Platelet Count 247 T/CUMM (130-400); Red Blood Count 3.93 MC/CUMM (3.8-5.5); Red Cell Distribution Width 15.4 % (9.3-17.3)
[2018-01-01 09:26] LABS: Osmolality,Calculated 271.7 MOS/KG (273-304); Potassium 5.7 MMOL/L (3.5-5.1)
[2018-01-01 09:31] LABS: Giant Platelets Few; Hypochromasia 1+; Ovalocytes Slight; Platelet Estimate Adequate
[2018-01-01] MEDS: INSULIN REGULAR 100 UNIT/ML SUBCUT SCH ×4 (09:35→20:46)
[2018-01-01 10:04] LABS: Troponin I Only 0.058 NG/ML (0.00-0.045)
[2018-01-01] MEDS: CARVEDILOL 6.25 MG TABLET PO SCH ×2 (10:28→17:27)
[2018-01-01] MEDS: hydrALAZINE 25 MG TABLET PO SCH ×2 (10:29→20:46)
[2018-01-01] MEDS: CALCIUM ACETATE 667 MG CAPSULE PO SCH ×3 (10:29→17:27)
[2018-01-01] MEDS: DOCUSATE SODIUM 100 MG CAPSULE PO SCH ×2 (10:29→20:46)
[2018-01-01] MEDS: PANTOPRAZOLE 40 MG TABLET PO SCH ×3 (10:29→20:45)
[2018-01-01] MEDS: amLODIPine 10 MG TABLET PO SCH ×2 (10:29→13:14)
[2018-01-01] MEDS: CINACALCET 30 MG TABLET PO SCH ×3 (10:30→20:45)
[2018-01-01] MEDS: ROSUVASTATIN 10 MG TABLET PO SCH (20:45)
[2018-01-01] MEDS: GABAPENTIN 300 MG CAPSULE PO SCH (20:46)
[2018-01-01] MEDS: INSULIN GLARGINE 100 UNIT/ML SUBCUT SCH (20:46)
[2018-01-01] MEDS: METOCLOPRAMIDE 5 MG TABLET PO PRN (20:48)
[2018-01-02] MEDS: METOCLOPRAMIDE 5 MG TABLET PO PRN ×2 (01:10→11:19)
[2018-01-02 04:53] LABS: Basophils % 0.2 % (0.0-0.8); Eosinophils # 0.7 10*3/uL (0.0-0.87); Eosinophils % 5.1 % (0.00-10.9); Hematocrit 36.4 VOL% (35.7-47.0); Hemoglobin 11.6 GM/DL (12.0-16.0); Immature Granulocytes % 0.5 %; Immature Granulocytes Absolute 0.07 #; Lymphocytes # 0.5 10*3/uL (1.4-4.0); Lymphocytes % 3.6 % (21.3-54.2); Mean Corpuscular HGB Conc 31.9 GM/DL (32-36); Mean Corpuscular Hemoglobin 27 PG (27-34); Mean Corpuscular Volume 84.7 FL (87-102); Mean Platelet Volume 10.5 FL (9.6-12.0); Monocytes # 1.5 10*3/uL (0.11-0.8); Monocytes % 10.9 % (1.7-12.7); Neutrophils # 10.7 10*3/uL (1.4-7.4); Neutrophils % 79.7 % (38.7-73.9); Platelet Count 256 T/CUMM (130-400); Red Cell Distribution Width 15.2 % (9.3-17.3); White Blood Count 13.5 T/CUMM (4-12)
[2018-01-02] MEDS: ALUMINUM/MAGNES/SIMETH MAX STR 30 ML UDCUP PO PRN ×2 (06:10→11:19)
[2018-01-02 06:17] LABS: Eosinophils 2 % (0-10); Lymphocytes 2 % (20-55); Platelet Estimate Normal; Segmented Neutrophils 87 % (50-85); Total Cells Counted 100
[2018-01-02 06:20] LABS: Calcium 8.7 MG/DL (8.5-10.1); Osmolality,Calculated 269.5 MOS/KG (273-304); Potassium 4.7 MMOL/L (3.5-5.1)
[2018-01-02] MEDS: INSULIN REGULAR 100 UNIT/ML SUBCUT SCH ×4 (09:08→21:25)
[2018-01-02] MEDS: CALCIUM ACETATE 667 MG CAPSULE PO SCH ×3 (09:09→16:06)
[2018-01-02] MEDS: hydrALAZINE 25 MG TABLET PO SCH ×2 (09:09→22:04)
[2018-01-02] MEDS: amLODIPine 10 MG TABLET PO SCH (09:09)
[2018-01-02] MEDS: CARVEDILOL 6.25 MG TABLET PO SCH ×2 (09:09→16:06)
[2018-01-02] MEDS: DOCUSATE SODIUM 100 MG CAPSULE PO SCH ×2 (09:09→21:26)
[2018-01-02] MEDS: PANTOPRAZOLE 40 MG TABLET PO SCH ×2 (09:10→21:25)
[2018-01-02] MEDS: CINACALCET 30 MG TABLET PO SCH ×2 (09:10→21:25)
[2018-01-02] MEDS: ROSUVASTATIN 10 MG TABLET PO SCH (21:25)
[2018-01-02] MEDS: GABAPENTIN 300 MG CAPSULE PO SCH (21:25)
[2018-01-02] MEDS: INSULIN GLARGINE 100 UNIT/ML SUBCUT SCH (21:26)
[2018-01-03] MEDS: ONDANSETRON 4 MG/2 ML VIAL IV PRN (01:45)
[2018-01-03 05:28] LABS: Calcium 9.2 MG/DL (8.5-10.1); Osmolality,Calculated 268.7 MOS/KG (273-304); Potassium 4.4 MMOL/L (3.5-5.1)
[2018-01-03] MEDS: INSULIN REGULAR 100 UNIT/ML SUBCUT SCH ×4 (09:23→22:17)
[2018-01-03] MEDS: CALCIUM ACETATE 667 MG CAPSULE PO SCH (09:25)
[2018-01-03] MEDS: amLODIPine 10 MG TABLET PO SCH (09:25)
[2018-01-03] MEDS: hydrALAZINE 25 MG TABLET PO SCH (09:25)
[2018-01-03] MEDS: CARVEDILOL 6.25 MG TABLET PO SCH (09:25)
[2018-01-03] MEDS: CINACALCET 30 MG TABLET PO SCH (09:25)
[2018-01-03] MEDS: DOCUSATE SODIUM 100 MG CAPSULE PO SCH ×2 (09:27→22:18)
[2018-01-03] MEDS: PANTOPRAZOLE 40 MG TABLET PO SCH (09:31)
[2018-01-03] MEDS: DEXTROSE 5% NACL 0.9% 1,000 ML IV SCH (11:04)
[2018-01-03] MEDS: hydrALAZINE 20 MG/1 ML VIAL IV SCH ×3 (11:05→23:33)
[2018-01-03] MEDS: cloNIDine 0.3 MG/24 HR PATCH TRANSDERM SCH (11:06)
[2018-01-03] MEDS: INSULIN GLARGINE 100 UNIT/ML SUBCUT SCH (22:17)
[2018-01-03] MEDS: GABAPENTIN 300 MG CAPSULE PO SCH (22:18)
[2018-01-04 05:18] LABS: Basophils % 0.3 % (0.0-0.8); Eosinophils # 0.8 10*3/uL (0.0-0.87); Eosinophils % 8.2 % (0.00-10.9); Hematocrit 35.8 VOL% (35.7-47.0); Hemoglobin 11.1 GM/DL (12.0-16.0); Immature Granulocytes % 0.3 %; Immature Granulocytes Absolute 0.03 #; Lymphocytes # 0.5 10*3/uL (1.4-4.0); Lymphocytes % 5.3 % (21.3-54.2); Mean Corpuscular Hemoglobin 26 PG (27-34); Mean Corpuscular Volume 84.2 FL (87-102); Monocytes # 1.2 10*3/uL (0.11-0.8); NRBC # 0.02 10*3/uL; Neutrophils # 7.2 10*3/uL (1.4-7.4); Neutrophils % 73.9 % (38.7-73.9); Platelet Count 349 T/CUMM (130-400); Red Blood Count 4.25 MC/CUMM (3.8-5.5); Red Cell Distribution Width 15.3 % (9.3-17.3); White Blood Count 9.7 T/CUMM (4-12)
[2018-01-04] MEDS: hydrALAZINE 20 MG/1 ML VIAL IV SCH ×4 (05:27→23:51)
[2018-01-04 05:31] LABS: Calcium 8.6 MG/DL (8.5-10.1); Osmolality,Calculated 281.2 MOS/KG (273-304); Potassium 4.1 MMOL/L (3.5-5.1)
[2018-01-04] MEDS: DEXTROSE 5% NACL 0.9% 1,000 ML IV SCH (07:34)
[2018-01-04] MEDS: INSULIN REGULAR 100 UNIT/ML SUBCUT SCH ×4 (08:50→21:56)
[2018-01-04] MEDS: PANTOPRAZOLE 40 MG VIAL IV SCH (08:50)
[2018-01-04] MEDS: DOCUSATE SODIUM 100 MG CAPSULE PO SCH ×2 (08:51→21:56)
[2018-01-04] MEDS: MORPHINE 4 MG/1 ML VIAL IV PRN (13:33)
[2018-01-04] MEDS: INSULIN GLARGINE 100 UNIT/ML SUBCUT SCH (21:56)
[2018-01-04] MEDS: GABAPENTIN 300 MG CAPSULE PO SCH (21:56)
[2018-01-05] MEDS: MORPHINE 4 MG/1 ML VIAL IV PRN (01:42)
[2018-01-05 04:59] LABS: Basophils % 0.4 % (0.0-0.8); Eosinophils % 12.8 % (0.00-10.9); Hematocrit 34.8 VOL% (35.7-47.0); Hemoglobin 10.7 GM/DL (12.0-16.0); Immature Granulocytes % 0.2 %; Immature Granulocytes Absolute 0.02 #; Lymphocytes # 0.8 10*3/uL (1.4-4.0); Lymphocytes % 9.5 % (21.3-54.2); Mean Corpuscular HGB Conc 30.7 GM/DL (32-36); Mean Corpuscular Hemoglobin 26 PG (27-34); Mean Corpuscular Volume 85.3 FL (87-102); Mean Platelet Volume 9.6 FL (9.6-12.0); Monocytes # 1.1 10*3/uL (0.11-0.8); Monocytes % 13.3 % (1.7-12.7); Neutrophils # 5.2 10*3/uL (1.4-7.4); Neutrophils % 63.8 % (38.7-73.9); Platelet Count 314 T/CUMM (130-400); Red Blood Count 4.08 MC/CUMM (3.8-5.5); Red Cell Distribution Width 15.4 % (9.3-17.3); White Blood Count 8.1 T/CUMM (4-12)
[2018-01-05 05:21] LABS: Calcium 8.2 MG/DL (8.5-10.1); Osmolality,Calculated 284.4 MOS/KG (273-304); Potassium 3.7 MMOL/L (3.5-5.1)
[2018-01-05 05:23] LABS: Eosinophils 17 % (0-10); Hypochromasia 1+; Lymphocytes 9 % (20-55); Microcytosis Slight; Ovalocytes Slight; Segmented Neutrophils 59 % (50-85); Total Cells Counted 100
[2018-01-05 05:24] LABS: Platelet Estimate Normal
[2018-01-05] MEDS: DEXTROSE 5% NACL 0.9% 1,000 ML IV SCH (05:51)
[2018-01-05] MEDS: hydrALAZINE 20 MG/1 ML VIAL IV SCH ×4 (06:33→23:11)
[2018-01-05] MEDS: PANTOPRAZOLE 40 MG VIAL IV SCH (08:58)
[2018-01-05] MEDS: INSULIN REGULAR 100 UNIT/ML SUBCUT SCH ×4 (09:01→22:16)
[2018-01-05] MEDS: DOCUSATE SODIUM 100 MG CAPSULE PO SCH ×2 (09:06→22:16)
[2018-01-05] MEDS: ONDANSETRON 4 MG/2 ML VIAL IV PRN (12:54)
[2018-01-05] MEDS: ALUMINUM/MAGNES/SIMETH MAX STR 30 ML UDCUP PO PRN (13:50)
[2018-01-05] MEDS ORDERED: DEXTROSE 50% 25 GM/50 ML VIAL IV PRN (16:32)
[2018-01-05] MEDS ORDERED: GLUCAGON 1 MG VIAL IM PRN (16:32)
[2018-01-05] MEDS ORDERED: TRACE ELEMENTS (5) 1 ML, MULTIVITAMIN INJ 10 ML in AMINO ACIDS/DEXT/LYTE 4.25-15% 2,000 ML IV SCH (17:00)
[2018-01-05] MEDS: AMINO ACIDS/DEXT/LYTES 4.25-5% 2,000 ML IV SCH (18:23)
[2018-01-05] MEDS: GABAPENTIN 300 MG CAPSULE PO SCH (22:16)
[2018-01-05] MEDS: INSULIN GLARGINE 100 UNIT/ML SUBCUT SCH (22:16)
[2018-01-06] MEDS ORDERED: PHENOL 1.4% THROAT SPRAY 177 ML BOTTLE PO PRN (01:41)
[2018-01-06] MEDS: ONDANSETRON 4 MG/2 ML VIAL IV PRN (02:29)
[2018-01-06] MEDS: hydrALAZINE 20 MG/1 ML VIAL IV SCH ×4 (05:13→22:12)
[2018-01-06 06:09] LABS: Calcium 8.3 MG/DL (8.5-10.1); Osmolality,Calculated 285.5 MOS/KG (273-304); Prealbumin 20.8 MG/DL (20-40)
[2018-01-06] MEDS: INSULIN REGULAR 100 UNIT/ML SUBCUT SCH ×4 (08:58→23:50)
[2018-01-06] MEDS: DOCUSATE SODIUM 100 MG CAPSULE PO SCH ×2 (08:59→23:50)
[2018-01-06] MEDS: PANTOPRAZOLE 40 MG VIAL IV SCH (10:07)
[2018-01-06] MEDS ORDERED: TRACE ELEMENTS (5) 1 ML, MULTIVITAMIN INJ 10 ML in AMINO ACIDS/DEXT/LYTE 4.25-15% 2,000 ML IV SCH (17:00)
[2018-01-06] MEDS: MORPHINE 4 MG/1 ML VIAL IV PRN (22:18)
[2018-01-06] MEDS: INSULIN GLARGINE 100 UNIT/ML SUBCUT SCH (23:50)
[2018-01-06] MEDS: GABAPENTIN 300 MG CAPSULE PO SCH (23:51)
[2018-01-07] MEDS: AMINO ACIDS/DEXT/LYTES 4.25-5% 2,000 ML IV SCH (04:45)
[2018-01-07] MEDS: hydrALAZINE 20 MG/1 ML VIAL IV SCH ×4 (05:11→22:51)
[2018-01-07 05:31] LABS: Basophils % 0.2 % (0.0-0.8); Eosinophils % 11.3 % (0.00-10.9); Hematocrit 35.6 VOL% (35.7-47.0); Hemoglobin 11.1 GM/DL (12.0-16.0); Immature Granulocytes % 0.3 %; Immature Granulocytes Absolute 0.03 #; Lymphocytes # 0.7 10*3/uL (1.4-4.0); Lymphocytes % 7.4 % (21.3-54.2); Mean Corpuscular HGB Conc 31.2 GM/DL (32-36); Mean Corpuscular Hemoglobin 26 PG (27-34); Mean Platelet Volume 9.9 FL (9.6-12.0); Monocytes % 10.7 % (1.7-12.7); Neutrophils # 6.3 10*3/uL (1.4-7.4); Neutrophils % 70.1 % (38.7-73.9); Platelet Count 358 T/CUMM (130-400); Red Blood Count 4.29 MC/CUMM (3.8-5.5); Red Cell Distribution Width 15.5 % (9.3-17.3)
[2018-01-07 05:56] LABS: Eosinophils 17 % (0-10); Giant Platelets Few; Hypochromasia 1+; Lymphocytes 4 % (20-55); Ovalocytes Slight; Platelet Estimate Adequate; Segmented Neutrophils 70 % (50-85); Total Cells Counted 100
[2018-01-07 05:57] LABS: Microcytosis Slight
[2018-01-07 06:10] LABS: Calcium 8.8 MG/DL (8.5-10.1); Potassium 3.9 MMOL/L (3.5-5.1)
[2018-01-07] MEDS: DOCUSATE SODIUM 100 MG CAPSULE PO SCH ×2 (08:30→22:51)
[2018-01-07] MEDS: PANTOPRAZOLE 40 MG VIAL IV SCH (08:31)
[2018-01-07] MEDS: INSULIN REGULAR 100 UNIT/ML SUBCUT SCH ×4 (08:31→21:20)
[2018-01-07] MEDS: NYSTATIN 500,000 UNIT/5 ML UDCUP SWISH/SWAL SCH ×2 (16:47→21:18)
[2018-01-07] MEDS: GABAPENTIN 300 MG CAPSULE PO SCH (21:19)
[2018-01-07] MEDS: INSULIN GLARGINE 100 UNIT/ML SUBCUT SCH (21:20)
[2018-01-08] MEDS: diphenhydrAMINE 50 MG/1 ML VIAL IV PRN ×2 (01:32→21:47)
[2018-01-08] MEDS: hydrALAZINE 20 MG/1 ML VIAL IV SCH (04:43)
[2018-01-08] MEDS: AMINO ACIDS/DEXT/LYTES 4.25-5% 2,000 ML IV SCH (04:43)
[2018-01-08 04:59] LABS: Basophils % 0.3 % (0.0-0.8); Eosinophils # 1.4 10*3/uL (0.0-0.87); Eosinophils % 15.1 % (0.00-10.9); Hematocrit 33.4 VOL% (35.7-47.0); Hemoglobin 10.5 GM/DL (12.0-16.0); Immature Granulocytes % 0.3 %; Immature Granulocytes Absolute 0.03 #; Lymphocytes # 0.8 10*3/uL (1.4-4.0); Lymphocytes % 8.7 % (21.3-54.2); Mean Corpuscular HGB Conc 31.4 GM/DL (32-36); Mean Corpuscular Hemoglobin 26 PG (27-34); Mean Corpuscular Volume 83.1 FL (87-102); Mean Platelet Volume 9.6 FL (9.6-12.0); Monocytes % 10.9 % (1.7-12.7); Neutrophils # 6.1 10*3/uL (1.4-7.4); Neutrophils % 64.7 % (38.7-73.9); Platelet Count 367 T/CUMM (130-400); Red Blood Count 4.02 MC/CUMM (3.8-5.5); Red Cell Distribution Width 15.7 % (9.3-17.3); White Blood Count 9.4 T/CUMM (4-12)
[2018-01-08 05:37] LABS: Eosinophils 18 % (0-10); Hypochromasia 1+; Lymphocytes 6 % (20-55); Platelet Estimate Adequate; Segmented Neutrophils 71 % (50-85); Total Cells Counted 100
[2018-01-08 05:38] LABS: Giant Platelets Few; Microcytosis Slight; Ovalocytes Slight
[2018-01-08] MEDS: INSULIN REGULAR 100 UNIT/ML SUBCUT SCH ×4 (09:33→21:47)
[2018-01-08] MEDS: NYSTATIN 500,000 UNIT/5 ML UDCUP SWISH/SWAL SCH ×4 (10:22→22:07)
[2018-01-08] MEDS: PANTOPRAZOLE 40 MG VIAL IV SCH (12:02)
[2018-01-08] MEDS: DOCUSATE SODIUM 100 MG CAPSULE PO SCH ×2 (12:02→22:07)
[2018-01-08] MEDS: hydrALAZINE 25 MG TABLET PO SCH ×3 (14:50→22:02)
[2018-01-08] MEDS: METOCLOPRAMIDE 5 MG TABLET PO PRN (18:32)
[2018-01-08] MEDS: ONDANSETRON 4 MG/2 ML VIAL IV PRN (21:42)
[2018-01-08] MEDS: INSULIN GLARGINE 100 UNIT/ML SUBCUT SCH (22:07)
[2018-01-08] MEDS: GABAPENTIN 300 MG CAPSULE PO SCH (22:07)
[2018-01-08] MEDS: ALUMINUM/MAGNES/SIMETH MAX STR 30 ML UDCUP PO PRN (23:45)
[2018-01-08] MEDS ORDERED: PROMETHAZINE 25 MG/1 ML VIAL IM ONE (23:52)
[2018-01-09] MEDS: INSULIN REGULAR 100 UNIT/ML SUBCUT SCH ×4 (08:57→21:07)
[2018-01-09] MEDS: METOCLOPRAMIDE 5 MG TABLET PO PRN (08:58)
[2018-01-09] MEDS: hydrALAZINE 25 MG TABLET PO SCH ×3 (08:58→17:33)
[2018-01-09] MEDS: DOCUSATE SODIUM 100 MG CAPSULE PO SCH ×2 (08:58→21:06)
[2018-01-09] MEDS: NYSTATIN 500,000 UNIT/5 ML UDCUP SWISH/SWAL SCH ×4 (08:58→21:07)
[2018-01-09] MEDS: PANTOPRAZOLE 40 MG VIAL IV SCH (08:59)
[2018-01-09] MEDS: ONDANSETRON 4 MG/2 ML VIAL IV PRN (11:39)
[2018-01-09] MEDS: hydrALAZINE 20 MG/1 ML VIAL IV SCH (17:33)
[2018-01-09] MEDS: diphenhydrAMINE 50 MG/1 ML VIAL IV PRN (20:43)
[2018-01-09] MEDS: GABAPENTIN 300 MG CAPSULE PO SCH (21:07)
[2018-01-09] MEDS: INSULIN GLARGINE 100 UNIT/ML SUBCUT SCH (21:07)
[2018-01-10] MEDS: hydrALAZINE 20 MG/1 ML VIAL IV SCH ×4 (00:35→17:23)
[2018-01-10] MEDS: INSULIN REGULAR 100 UNIT/ML SUBCUT SCH ×4 (08:17→21:17)
[2018-01-10] MEDS: DOCUSATE SODIUM 100 MG CAPSULE PO SCH ×2 (08:20→21:17)
[2018-01-10] MEDS: NYSTATIN 500,000 UNIT/5 ML UDCUP SWISH/SWAL SCH ×4 (08:20→21:15)
[2018-01-10] MEDS: PANTOPRAZOLE 40 MG VIAL IV SCH (08:20)
[2018-01-10] MEDS: cloNIDine 0.3 MG/24 HR PATCH TRANSDERM SCH (08:46)
[2018-01-10] MEDS: diphenhydrAMINE 50 MG/1 ML VIAL IV PRN (15:21)
[2018-01-10] MEDS: ONDANSETRON 4 MG/2 ML VIAL IV PRN (18:10)
[2018-01-10] MEDS: INSULIN GLARGINE 100 UNIT/ML SUBCUT SCH (21:17)
[2018-01-10] MEDS: GABAPENTIN 300 MG CAPSULE PO SCH (21:17)
[2018-01-11] MEDS: ONDANSETRON 4 MG/2 ML VIAL IV PRN (00:56)
[2018-01-11] MEDS: hydrALAZINE 20 MG/1 ML VIAL IV SCH ×5 (00:56→17:04)
[2018-01-11] MEDS: INSULIN REGULAR 100 UNIT/ML SUBCUT SCH ×4 (09:00→23:12)
[2018-01-11] MEDS: DOCUSATE SODIUM 100 MG CAPSULE PO SCH ×2 (09:05→21:26)
[2018-01-11] MEDS: NYSTATIN 500,000 UNIT/5 ML UDCUP SWISH/SWAL SCH ×4 (10:11→21:26)
[2018-01-11] MEDS: PANTOPRAZOLE 40 MG VIAL IV SCH (10:11)
[2018-01-11] MEDS: GABAPENTIN 300 MG CAPSULE PO SCH (21:25)
[2018-01-11] MEDS: INSULIN GLARGINE 100 UNIT/ML SUBCUT SCH (23:12)
[2018-01-12] MEDS: hydrALAZINE 20 MG/1 ML VIAL IV SCH ×4 (02:11→17:07)
[2018-01-12] MEDS: INSULIN REGULAR 100 UNIT/ML SUBCUT SCH ×4 (08:32→21:05)
[2018-01-12] MEDS: DOCUSATE SODIUM 100 MG CAPSULE PO SCH ×2 (08:33→21:06)
[2018-01-12] MEDS: PANTOPRAZOLE 40 MG VIAL IV SCH (08:33)
[2018-01-12] MEDS: NYSTATIN 500,000 UNIT/5 ML UDCUP SWISH/SWAL SCH ×4 (08:33→21:05)
[2018-01-12] MEDS: GABAPENTIN 300 MG CAPSULE PO SCH (21:05)
[2018-01-12] MEDS: INSULIN GLARGINE 100 UNIT/ML SUBCUT SCH (22:30)
[2018-01-13] MEDS: hydrALAZINE 20 MG/1 ML VIAL IV SCH ×4 (01:17→17:03)
[2018-01-13] MEDS: INSULIN REGULAR 100 UNIT/ML SUBCUT SCH ×4 (08:22→22:54)
[2018-01-13] MEDS: NYSTATIN 500,000 UNIT/5 ML UDCUP SWISH/SWAL SCH ×4 (12:34→21:25)
[2018-01-13 13:18] LABS: Basophils % 0.6 % (0.0-0.8); Eosinophils # 0.3 10*3/uL (0.0-0.87); Eosinophils % 3.6 % (0.00-10.9); Hematocrit 37.4 VOL% (35.7-47.0); Hemoglobin 11.9 GM/DL (12.0-16.0); Immature Granulocytes % 0.4 %; Immature Granulocytes Absolute 0.03 #; Lymphocytes # 0.6 10*3/uL (1.4-4.0); Mean Corpuscular HGB Conc 31.8 GM/DL (32-36); Mean Corpuscular Hemoglobin 26 PG (27-34); Mean Platelet Volume 10.8 FL (9.6-12.0); Monocytes # 0.8 10*3/uL (0.11-0.8); Neutrophils # 5.2 10*3/uL (1.4-7.4); Neutrophils % 74.4 % (38.7-73.9); Platelet Count 274 T/CUMM (130-400); Red Blood Count 4.56 MC/CUMM (3.8-5.5); Red Cell Distribution Width 15.4 % (9.3-17.3); White Blood Count 6.9 T/CUMM (4-12)
[2018-01-13] MEDS: PANTOPRAZOLE 40 MG VIAL IV SCH (13:19)
[2018-01-13] MEDS: DOCUSATE SODIUM 100 MG CAPSULE PO SCH ×2 (13:19→22:53)
[2018-01-13 13:39] LABS: Alanine Aminotransferase 11 U/L (13-56); Albumin 2.6 G/DL (3.4-5.0); Alkaline Phosphatase 84 U/L (45-117); Aspartate Amino Transferase 23 U/L (0-37); Bilirubin,Total < 0.39 MG/DL (0.2-1.0); Blood Urea Nitrogen 14 MG/DL (7-18); Calcium 8.6 MG/DL (8.5-10.1); Glucose 228 MG/DL (74-106); Osmolality,Calculated 273.4 MOS/KG (273-304); Potassium 4.3 MMOL/L (3.5-5.1); Sodium 133 MMOL/L (136-145); Total Protein 7.1 G/DL (6.4-8.3)
[2018-01-13] MEDS: INSULIN GLARGINE 100 UNIT/ML SUBCUT SCH (21:25)
[2018-01-13] MEDS: GABAPENTIN 300 MG CAPSULE PO SCH (21:26)
[2018-01-14] MEDS: hydrALAZINE 20 MG/1 ML VIAL IV SCH ×3 (00:05→12:07)
[2018-01-14 04:42] LABS: Basophils # 0.1 10*3/uL (0.0-0.2); Basophils % 0.8 % (0.0-0.8); Eosinophils # 0.6 10*3/uL (0.0-0.87); Eosinophils % 8.3 % (0.00-10.9); Hematocrit 36.8 VOL% (35.7-47.0); Hemoglobin 11.3 GM/DL (12.0-16.0); Immature Granulocytes % 0.4 %; Immature Granulocytes Absolute 0.03 #; Lymphocytes # 0.9 10*3/uL (1.4-4.0); Lymphocytes % 12.3 % (21.3-54.2); Mean Corpuscular HGB Conc 30.7 GM/DL (32-36); Mean Corpuscular Hemoglobin 26 PG (27-34); Mean Corpuscular Volume 83.6 FL (87-102); Mean Platelet Volume 11.1 FL (9.6-12.0); Monocytes # 0.9 10*3/uL (0.11-0.8); Monocytes % 12.7 % (1.7-12.7); Neutrophils # 4.7 10*3/uL (1.4-7.4); Neutrophils % 65.5 % (38.7-73.9); Platelet Count 296 T/CUMM (130-400); Red Cell Distribution Width 15.3 % (9.3-17.3); White Blood Count 7.2 T/CUMM (4-12)
[2018-01-14 05:14] LABS: Calcium 9.1 MG/DL (8.5-10.1); Osmolality,Calculated 267.5 MOS/KG (273-304); Potassium 4.2 MMOL/L (3.5-5.1)
[2018-01-14] MEDS: INSULIN REGULAR 100 UNIT/ML SUBCUT SCH ×4 (08:36→23:39)
[2018-01-14] MEDS: NYSTATIN 500,000 UNIT/5 ML UDCUP SWISH/SWAL SCH ×4 (10:02→21:33)
[2018-01-14] MEDS: DOCUSATE SODIUM 100 MG CAPSULE PO SCH ×2 (10:03→23:39)
[2018-01-14] MEDS: PANTOPRAZOLE 40 MG VIAL IV SCH (10:03)
[2018-01-14] MEDS ORDERED: diphenhydrAMINE CAP 25 MG CAPSULE PO PRN (14:15)
[2018-01-14] MEDS ORDERED: ONDANSETRON 4 MG TABLET PO PRN (14:16)
[2018-01-14] MEDS: hydrALAZINE 25 MG TABLET PO SCH ×2 (16:44→21:33)
[2018-01-14] MEDS: GABAPENTIN 300 MG CAPSULE PO SCH (21:33)
[2018-01-14] MEDS: INSULIN GLARGINE 100 UNIT/ML SUBCUT SCH (23:39)
[2018-01-15 05:14] LABS: Basophils # 0.1 10*3/uL (0.0-0.2); Basophils % 1.3 % (0.0-0.8); Eosinophils # 0.5 10*3/uL (0.0-0.87); Eosinophils % 8.1 % (0.00-10.9); Hematocrit 38.2 VOL% (35.7-47.0); Hemoglobin 11.6 GM/DL (12.0-16.0); Immature Granulocytes % 0.3 %; Immature Granulocytes Absolute 0.02 #; Lymphocytes # 0.9 10*3/uL (1.4-4.0); Lymphocytes % 14.7 % (21.3-54.2); Mean Corpuscular HGB Conc 30.4 GM/DL (32-36); Mean Corpuscular Hemoglobin 26 PG (27-34); Mean Corpuscular Volume 84.5 FL (87-102); Monocytes # 0.6 10*3/uL (0.11-0.8); Monocytes % 10.1 % (1.7-12.7); Neutrophils % 65.5 % (38.7-73.9); Platelet Count 275 T/CUMM (130-400); Red Blood Count 4.52 MC/CUMM (3.8-5.5); Red Cell Distribution Width 15.6 % (9.3-17.3); White Blood Count 6.1 T/CUMM (4-12)
[2018-01-15 05:32] LABS: Calcium 8.9 MG/DL (8.5-10.1); Osmolality,Calculated 269.7 MOS/KG (273-304); Potassium 4.7 MMOL/L (3.5-5.1)
[2018-01-15] MEDS: INSULIN REGULAR 100 UNIT/ML SUBCUT SCH ×3 (08:29→15:58)
[2018-01-15] MEDS ORDERED: PANTOPRAZOLE 40 MG TABLET PO SCH (09:00)
[2018-01-15] MEDS: hydrALAZINE 25 MG TABLET PO SCH ×3 (09:11→16:42)
[2018-01-15] MEDS: DOCUSATE SODIUM 100 MG CAPSULE PO SCH (09:13)
[2018-01-15] MEDS: NYSTATIN 500,000 UNIT/5 ML UDCUP SWISH/SWAL SCH ×3 (09:13→16:42)
[2018-01-15 16:55] VITALS: BP 133/52
== END 2018-01-15 17:51 | disposition swing bed (61) | DRG 329 ==
LOC: N.ED 16:24 → N.EDINP 17:32 → SUATTDRO 17:32 → N.TELEN 18:48
PROVIDERS: ADMIT Internal Medicine; ATTEND Hospitalist

== ENCOUNTER 2018-03-18 06:45 | Inpatient (IN) ==
[~2018-03-18 06:45] MED LIST: DIAZEPAM 5 MG TABLET PO ONE; HEPARIN 5,000 UNIT/1 ML VIAL IV ONE; MIDAZOLAM 2 MG/2 ML VIAL IV ONE; fentaNYL 100 MCG/2 ML VIAL IV ONE
[2018-03-18 07:24] LABS: Basophils % 0.2 % (0.0-0.8); Eosinophils # 0.1 10*3/uL (0.0-0.87); Eosinophils % 0.5 % (0.00-10.9); Hematocrit 35.6 VOL% (35.7-47.0); Immature Granulocytes % 0.8 %; Lymphocytes # 1.4 10*3/uL (1.4-4.0); Lymphocytes % 11.3 % (21.3-54.2); Mean Corpuscular HGB Conc 30.9 GM/DL (32-36); Mean Corpuscular Hemoglobin 27 PG (27-34); Mean Corpuscular Volume 88.6 FL (87-102); Mean Platelet Volume 9.6 FL (9.6-12.0); Monocytes # 1.5 10*3/uL (0.11-0.8); Monocytes % 11.9 % (1.7-12.7); NRBC # 0.04 10*3/uL; Neutrophils # 9.6 10*3/uL (1.4-7.4); Neutrophils % 75.3 % (38.7-73.9); Platelet Count 514 T/CUMM (130-400); Red Blood Count 4.02 MC/CUMM (3.8-5.5); Red Cell Distribution Width 21.5 % (9.3-17.3); White Blood Count 12.8 T/CUMM (4-12)
[2018-03-18 07:31] LABS: INR 1.1; PT Patient Result 11.4 SECS
[2018-03-18 07:46] LABS: Calcium 9.6 MG/DL (8.5-10.1); Osmolality,Calculated 279.7 MOS/KG (273-304); Potassium 3.1 MMOL/L (3.5-5.1)
[2018-03-18] MEDS ORDERED: DIAZEPAM 5 MG TABLET ONE (09:23)
[2018-03-18] MEDS: SODIUM CHLORIDE 0.45% 1,000 ML IV SCH (10:14)
[2018-03-18] MEDS ORDERED: HEPARIN/NACL 0.9% 2 UNITS/ML 2,000 ML IV ONE (10:55)
[2018-03-18] MEDS ORDERED: fentaNYL 100 MCG/2 ML VIAL ONE (10:59)
[2018-03-18] MEDS ORDERED: HEPARIN 5,000 UNIT/1 ML VIAL ONE (11:00)
[2018-03-18] MEDS ORDERED: MIDAZOLAM 2 MG/2 ML VIAL ONE (11:00)
[2018-03-18] MEDS ORDERED: DEXTROSE 50% 25 GM/50 ML VIAL IV PRN (11:58)
[2018-03-18] MEDS ORDERED: ACETAMINOPHEN 325 MG TABLET PO PRN (14:57)
[2018-03-18] MEDS ORDERED: MORPHINE 4 MG/1 ML VIAL IV PRN (14:57)
[2018-03-18] MEDS ORDERED: ONDANSETRON 4 MG/2 ML VIAL IV PRN (14:57)
[2018-03-18] MEDS ORDERED: CALCIUM ACETATE 667 MG CAPSULE PO SCH (15:00)
[2018-03-18] MEDS: cloNIDine 0.1 MG TABLET PO SCH ×2 (15:55→21:18)
[2018-03-18] MEDS: INSULIN REGULAR 100 UNIT/ML SUBCUT SCH ×2 (15:56→21:17)
[2018-03-18] MEDS ORDERED: INSULIN LISPRO 100 UNIT/ML SUBCUT SCH (16:30)
[2018-03-18] MEDS: CALCIUM ACETATE 667 MG CAPSULE PO SCH (17:27)
[2018-03-18] MEDS: CINACALCET 30 MG TABLET PO SCH (21:17)
[2018-03-18] MEDS: DOCUSATE SODIUM 100 MG CAPSULE PO SCH (21:17)
[2018-03-18] MEDS: CARVEDILOL 6.25 MG TABLET PO SCH (21:17)
[2018-03-18] MEDS: GABAPENTIN 300 MG CAPSULE PO SCH (21:18)
[2018-03-18] MEDS: glipiZIDE 10 MG TABLET PO SCH (21:18)
[2018-03-19 05:40] LABS: Basophils % 0.4 % (0.0-0.8); Eosinophils # 0.1 10*3/uL (0.0-0.87); Eosinophils % 1.2 % (0.00-10.9); Hematocrit 32.9 VOL% (35.7-47.0); Hemoglobin 9.9 GM/DL (12.0-16.0); Immature Granulocytes % 0.7 %; Immature Granulocytes Absolute 0.06 #; Lymphocytes % 11.6 % (21.3-54.2); Mean Corpuscular HGB Conc 30.1 GM/DL (32-36); Mean Corpuscular Hemoglobin 27 PG (27-34); Mean Corpuscular Volume 90.9 FL (87-102); Mean Platelet Volume 9.3 FL (9.6-12.0); NRBC # 0.03 10*3/uL; Neutrophils # 6.3 10*3/uL (1.4-7.4); Neutrophils % 74.1 % (38.7-73.9); Platelet Count 418 T/CUMM (130-400); Red Blood Count 3.62 MC/CUMM (3.8-5.5); Red Cell Distribution Width 21.9 % (9.3-17.3); White Blood Count 8.4 T/CUMM (4-12)
[2018-03-19 06:05] LABS: Alanine Aminotransferase < 9 U/L (13-56); Albumin 1.9 G/DL (3.4-5.0); Alkaline Phosphatase 104 U/L (45-117); Aspartate Amino Transferase 13 U/L (0-37); Blood Urea Nitrogen 18 MG/DL (7-18); Calcium 9.6 MG/DL (8.5-10.1); Glucose 106 MG/DL (74-106); Osmolality,Calculated 274.8 MOS/KG (273-304); Potassium 3.2 MMOL/L (3.5-5.1); Sodium 137 MMOL/L (136-145); Total Protein 7.2 G/DL (6.4-8.3)
[2018-03-19] MEDS: SODIUM CHLORIDE 0.45% 1,000 ML IV SCH (08:18)
[2018-03-19] MEDS: INSULIN REGULAR 100 UNIT/ML SUBCUT SCH ×4 (08:19→21:55)
[2018-03-19] MEDS: cloNIDine 0.1 MG TABLET PO SCH ×3 (09:48→21:53)
[2018-03-19] MEDS: CARVEDILOL 6.25 MG TABLET PO SCH ×2 (09:48→21:54)
[2018-03-19] MEDS: DOXAZOSIN 4 MG TABLET PO SCH (09:48)
[2018-03-19] MEDS: DOCUSATE SODIUM 100 MG CAPSULE PO SCH ×2 (09:50→21:53)
[2018-03-19] MEDS: CALCIUM ACETATE 667 MG CAPSULE PO SCH ×3 (09:50→16:50)
[2018-03-19] MEDS: glipiZIDE 10 MG TABLET PO SCH ×2 (09:50→21:53)
[2018-03-19] MEDS: PANTOPRAZOLE 40 MG TABLET PO SCH (09:50)
[2018-03-19] MEDS: CINACALCET 30 MG TABLET PO SCH ×2 (09:51→21:53)
[2018-03-19] MEDS ORDERED: CLINDAMYCIN INJ 50 ML IV ONE (13:36)
[2018-03-19] MEDS ORDERED: ONDANSETRON 4 MG/2 ML VIAL ONE ×2 (14:17→15:03)
[2018-03-19] MEDS ORDERED: PHENYLEPHRINE 10 MG/1 ML VIAL IV ONE (14:17)
[2018-03-19] MEDS ORDERED: LIDOCAINE 1% 5 ML VIAL ONE (14:17)
[2018-03-19] MEDS ORDERED: DEXTROSE 50% 25 GM/50 ML VIAL IV ONE (14:17)
[2018-03-19] MEDS ORDERED: PROPOFOL 200 MG/20 ML VIAL IV ONE (14:17)
[2018-03-19] MEDS ORDERED: MEPERIDINE 25 MG/1 ML VIAL ONE (15:03)
[2018-03-19] MEDS ORDERED: ONDANSETRON 4 MG/2 ML VIAL IV PRN (15:10)
[2018-03-19] MEDS ORDERED: MEPERIDINE 25 MG/1 ML VIAL IV PRN (15:10)
[2018-03-19] MEDS: CLINDAMYCIN INJ 600 MG in PREMIX 1 EACH IV SCH ×2 (16:52→23:41)
[2018-03-19] MEDS: GABAPENTIN 300 MG CAPSULE PO SCH (21:53)
[2018-03-20 05:28] LABS: Basophils % 0.2 % (0.0-0.8); Eosinophils # 0.1 10*3/uL (0.0-0.87); Eosinophils % 0.8 % (0.00-10.9); Hematocrit 33.3 VOL% (35.7-47.0); Hemoglobin 10.2 GM/DL (12.0-16.0); Immature Granulocytes % 0.8 %; Immature Granulocytes Absolute 0.08 #; Lymphocytes # 0.8 10*3/uL (1.4-4.0); Lymphocytes % 7.4 % (21.3-54.2); Mean Corpuscular HGB Conc 30.6 GM/DL (32-36); Mean Corpuscular Hemoglobin 27 PG (27-34); Mean Corpuscular Volume 88.8 FL (87-102); Mean Platelet Volume 10.2 FL (9.6-12.0); Monocytes # 1.1 10*3/uL (0.11-0.8); NRBC # 0.04 10*3/uL; Neutrophils # 8.6 10*3/uL (1.4-7.4); Neutrophils % 80.8 % (38.7-73.9); Platelet Count 369 T/CUMM (130-400); Red Blood Count 3.75 MC/CUMM (3.8-5.5); Red Cell Distribution Width 22.1 % (9.3-17.3); White Blood Count 10.6 T/CUMM (4-12)
[2018-03-20 05:39] LABS: Osmolality,Calculated 271.8 MOS/KG (273-304); Potassium 3.5 MMOL/L (3.5-5.1)
[2018-03-20 05:54] LABS: Ovalocytes 2+; Platelet Estimate Normal; Polychromasia Few
[2018-03-20 05:55] LABS: Hypochromasia 1+; Target Cells Few
[2018-03-20] MEDS: CLINDAMYCIN INJ 600 MG in PREMIX 1 EACH IV SCH ×2 (10:26→12:13)
[2018-03-20] MEDS: DOXAZOSIN 4 MG TABLET PO SCH (10:27)
[2018-03-20] MEDS: CINACALCET 30 MG TABLET PO SCH ×2 (10:28→21:06)
[2018-03-20] MEDS: CALCIUM ACETATE 667 MG CAPSULE PO SCH ×3 (10:28→17:19)
[2018-03-20] MEDS: CARVEDILOL 6.25 MG TABLET PO SCH ×2 (10:28→21:05)
[2018-03-20] MEDS: cloNIDine 0.1 MG TABLET PO SCH ×3 (10:29→21:05)
[2018-03-20] MEDS: glipiZIDE 10 MG TABLET PO SCH ×2 (10:29→21:06)
[2018-03-20] MEDS: PANTOPRAZOLE 40 MG TABLET PO SCH (10:29)
[2018-03-20] MEDS: DOCUSATE SODIUM 100 MG CAPSULE PO SCH ×2 (10:30→21:05)
[2018-03-20] MEDS: INSULIN REGULAR 100 UNIT/ML SUBCUT SCH ×4 (10:33→21:06)
[2018-03-20] MEDS: SODIUM CHLORIDE 0.45% 1,000 ML IV SCH (12:13)
[2018-03-20] MEDS: GABAPENTIN 300 MG CAPSULE PO SCH (21:06)
[2018-03-21] MEDS: INSULIN REGULAR 100 UNIT/ML SUBCUT SCH ×4 (07:30→20:22)
[2018-03-21] MEDS: SODIUM CHLORIDE 0.45% 1,000 ML IV SCH (07:40)
[2018-03-21] MEDS: GLUCAGON 1 MG VIAL IM PRN ×2 (09:40→18:45)
[2018-03-21] MEDS: CALCIUM ACETATE 667 MG CAPSULE PO SCH ×3 (09:40→17:30)
[2018-03-21] MEDS: PANTOPRAZOLE 40 MG TABLET PO SCH (09:40)
[2018-03-21] MEDS: CARVEDILOL 6.25 MG TABLET PO SCH ×2 (09:40→20:22)
[2018-03-21] MEDS: glipiZIDE 10 MG TABLET PO SCH ×2 (09:40→20:22)
[2018-03-21] MEDS: cloNIDine 0.1 MG TABLET PO SCH ×3 (09:40→20:22)
[2018-03-21] MEDS: HEPARIN 5,000 UNIT/1 ML VIAL SUBCUT SCH ×2 (09:40→18:00)
[2018-03-21] MEDS: DOXAZOSIN 4 MG TABLET PO SCH (09:40)
[2018-03-21] MEDS: CINACALCET 30 MG TABLET PO SCH ×2 (09:40→20:22)
[2018-03-21] MEDS: DOCUSATE SODIUM 100 MG CAPSULE PO SCH ×2 (09:40→20:22)
[2018-03-21] MEDS: GABAPENTIN 300 MG CAPSULE PO SCH (20:22)
[2018-03-22] MEDS: HEPARIN 5,000 UNIT/1 ML VIAL SUBCUT SCH ×3 (03:03→21:55)
[2018-03-22] MEDS: SODIUM CHLORIDE 0.45% 1,000 ML IV SCH (07:19)
[2018-03-22] MEDS: INSULIN REGULAR 100 UNIT/ML SUBCUT SCH ×4 (08:27→21:55)
[2018-03-22] MEDS: CALCIUM ACETATE 667 MG CAPSULE PO SCH ×3 (08:27→16:52)
[2018-03-22] MEDS: DOCUSATE SODIUM 100 MG CAPSULE PO SCH ×2 (09:00→21:54)
[2018-03-22] MEDS: cloNIDine 0.1 MG TABLET PO SCH ×3 (09:00→21:55)
[2018-03-22] MEDS: CINACALCET 30 MG TABLET PO SCH ×2 (09:00→21:54)
[2018-03-22] MEDS: DOXAZOSIN 4 MG TABLET PO SCH (13:52)
[2018-03-22] MEDS: PANTOPRAZOLE 40 MG TABLET PO SCH (13:53)
[2018-03-22] MEDS: glipiZIDE 10 MG TABLET PO SCH ×2 (13:53→21:55)
[2018-03-22] MEDS: CARVEDILOL 6.25 MG TABLET PO SCH ×2 (13:53→21:54)
[2018-03-22] MEDS: GABAPENTIN 300 MG CAPSULE PO SCH (21:55)
[2018-03-23] MEDS: HEPARIN 5,000 UNIT/1 ML VIAL SUBCUT SCH ×3 (05:13→20:36)
[2018-03-23 05:17] LABS: Basophils % 0.2 % (0.0-0.8); Eosinophils # 0.2 10*3/uL (0.0-0.87); Eosinophils % 1.6 % (0.00-10.9); Hematocrit 27.7 VOL% (35.7-47.0); Hemoglobin 8.7 GM/DL (12.0-16.0); Immature Granulocytes % 0.6 %; Immature Granulocytes Absolute 0.07 #; Lymphocytes # 0.9 10*3/uL (1.4-4.0); Lymphocytes % 7.9 % (21.3-54.2); Mean Corpuscular HGB Conc 31.4 GM/DL (32-36); Mean Corpuscular Hemoglobin 28 PG (27-34); Mean Corpuscular Volume 88.2 FL (87-102); Mean Platelet Volume 10.2 FL (9.6-12.0); Monocytes # 1.2 10*3/uL (0.11-0.8); Monocytes % 10.8 % (1.7-12.7); Neutrophils # 8.6 10*3/uL (1.4-7.4); Neutrophils % 78.9 % (38.7-73.9); Platelet Count 390 T/CUMM (130-400); Red Blood Count 3.14 MC/CUMM (3.8-5.5); Red Cell Distribution Width 21.5 % (9.3-17.3)
[2018-03-23] MEDS: SODIUM CHLORIDE 0.45% 1,000 ML IV SCH (05:19)
[2018-03-23 05:44] LABS: Osmolality,Calculated 268.2 MOS/KG (273-304)
[2018-03-23] MEDS: CALCIUM ACETATE 667 MG CAPSULE PO SCH ×3 (08:03→17:10)
[2018-03-23] MEDS: INSULIN REGULAR 100 UNIT/ML SUBCUT SCH ×4 (08:03→20:38)
[2018-03-23] MEDS: cloNIDine 0.1 MG TABLET PO SCH ×3 (08:04→20:36)
[2018-03-23] MEDS: DOCUSATE SODIUM 100 MG CAPSULE PO SCH ×2 (08:04→20:38)
[2018-03-23] MEDS: PANTOPRAZOLE 40 MG TABLET PO SCH (08:04)
[2018-03-23] MEDS: CARVEDILOL 6.25 MG TABLET PO SCH ×2 (08:05→20:37)
[2018-03-23] MEDS: CINACALCET 30 MG TABLET PO SCH ×2 (08:05→20:36)
[2018-03-23] MEDS: DOXAZOSIN 4 MG TABLET PO SCH (08:05)
[2018-03-23] MEDS: glipiZIDE 10 MG TABLET PO SCH ×2 (08:06→20:37)
[2018-03-23] MEDS: GABAPENTIN 300 MG CAPSULE PO SCH (20:37)
[2018-03-24] MEDS: HEPARIN 5,000 UNIT/1 ML VIAL SUBCUT SCH ×2 (04:54→15:20)
[2018-03-24] MEDS: INSULIN REGULAR 100 UNIT/ML SUBCUT SCH ×2 (08:19→15:19)
[2018-03-24] MEDS: glipiZIDE 10 MG TABLET PO SCH (08:20)
[2018-03-24 12:31] VITALS: BP 144/62
[2018-03-24] MEDS: CALCIUM ACETATE 667 MG CAPSULE PO SCH (15:14)
[2018-03-24] MEDS: DOXAZOSIN 4 MG TABLET PO SCH (15:15)
[2018-03-24] MEDS: cloNIDine 0.1 MG TABLET PO SCH ×2 (15:16→15:33)
[2018-03-24] MEDS: CARVEDILOL 6.25 MG TABLET PO SCH (15:18)
[2018-03-24] MEDS: PANTOPRAZOLE 40 MG TABLET PO SCH (15:18)
[2018-03-24] MEDS: DOCUSATE SODIUM 100 MG CAPSULE PO SCH (15:18)
[2018-03-24] MEDS: CINACALCET 30 MG TABLET PO SCH (15:19)
[2018-03-24] MEDS: SODIUM CHLORIDE 0.45% 1,000 ML IV SCH (15:20)
== END 2018-03-24 15:09 | DRG 239 ==
LOC: N.RAD 06:45 → N.SDSINP 06:50 → N.3E 12:45
PROVIDERS: ADMIT Surgery; ATTEND Surgery